=== PATIENT | male | born 1950 | race African-American/Black ===

== ENCOUNTER 2017-03-24 09:58 | Inpatient (IN) | payer OTHER ==
[2017-03-24] MEDS ORDERED: ONDANSETRON 4 MG/2 ML VIAL IVPUSH ONE (10:28)
[2017-03-24] MEDS ORDERED: SODIUM CHLORIDE 1,000 ML IV STA ×2 (10:28→15:34)
--- NOTE | 2017-03-24 10:32 | PDOC ---
History of Present Illness - General History Source: Patient, Spouse - History of Present Illness Timing/Duration: reports: getting worse Quality: reports: severe Abdominal Pain Onset Location: reports: other (upper abd) Pain Radiation: reports: no radiation <Tamara Wood Last Filed: 03/24/17 16:03> <Yeimy Kaplan - Last Filed: 03/28/17 14:35> - General Chief Complaint: Nausea/Vomiting Stated Complaint: SENT BY PCP:DIZZINESS,VOMITING Time Seen by Provider: 03/24/17 10:21 Past History - Past Medical History Diabetes: Yes HTN: Yes Hypercholesterolemia: Yes - Psycho/Social/Smoking Cessation Hx Suicidal Ideation: No Smoking Status: Yes Smoking History: Never smoked Number of Cigarettes Smoked Daily: 0 Information on smoking cessation initiated: No Hx Alcohol Use: No Drug/Substance Use Hx: No Substance Use Type: None <Tamara Wood Last Filed: 03/24/17 16:03> <Yeimy Kaplan - Last Filed: 03/28/17 14:35> - Past Medical History Allergies/Adverse Reactions: Allergies Allergy/AdvReac Type Severity Reaction Status Date / Time No Known Allergies Allergy Verified 03/24/17 10:05 Home Medications: Ambulatory Orders Carvedilol 6.25 mg PO BID 12/20/12 Amlodipine Besylate 10 mg PO DAILY 03/24/17 Aspirin [ASA -] 81 mg PO DAILY 03/24/17 Dorzolamide HCl/Timolol Maleat [Cosopt Eye Drops] 10 ml OP DAILY 03/24/17 Enalapril Maleate [Vasotec -] 10 mg PO BID 03/24/17 Insulin NPH Hum/Reg Insulin Hm [Humulin 70-30 Vial] 20 unit SQ BID 03/24/17 Metformin HCl 500 mg PO BID 03/24/17 Docusate Sodium [Colace -] 300 mg PO HS #30 capsule 03/26/17 Review of Systems - Review of Systems Constitutional: Yes: Malaise, Weakness. No: Chills, Fever Respiratory: No: Cough, Shortness of Breath Cardiac (ROS): No: Chest Pain ABD/GI: Yes: Nausea, Vomiting. No: Diarrhea Neurological: Yes: Dizziness. No: Headache <Tamara Wood Last Filed: 03/24/17 16:03> *Physical Exam - Vital Signs Last Vital Signs Temp Pulse Resp BP Pulse Ox 97.8 F 71 18 100/58 98 03/24/17 10:02 03/24/17 10:02 03/24/17 10:02 03/24/17 10:02 03/24/17 10:02 - Physical Exam General Appearance: Yes: Appropriately Dressed. No: Apparent Distress HEENT: positive: Normal Voice Neck: positive: Supple Respiratory/Chest: positive: Lungs Clear, Normal Breath Sounds. negative: Respiratory Distress Cardiovascular: positive: Regular Rate, S1, S2 Gastrointestinal/Abdominal: positive: Soft. negative: Tender Musculoskeletal: negative: CVA Tenderness Integumentary: positive: Dry, Warm Neurologic: positive: Fully Oriented, Alert, Normal Mood/Affect <Tamara Wood - Last Filed: 03/24/17 16:03> - Vital Signs Last Vital Signs Temp Pulse Resp BP Pulse Ox 98.2 F 70 16 115/78 97 03/26/17 15:08 03/26/17 15:08 03/26/17 15:08 03/26/17 15:08 03/26/17 09:00 <Yeimy Kaplan - Last Filed: 03/28/17 14:35> ED Treatment Course - LABORATORY CBC & Chemistry Diagram: 03/24/17 11:00 03/24/17 11:00 <Tamara Wood - Last Filed: 03/24/17 16:03> - LABORATORY CBC & Chemistry Diagram: 03/26/17 06:00 03/26/17 06:00 - ADDITIONAL ORDERS Additional order review: 03/24/17 03/24/17 13:44 11:00 RBC 4.98 MCV 88.7 MCHC 33.3 RDW 14.7 MPV 6.9 L Neutrophils % 57.2 Lymphocytes % 33.7 Monocytes % 6.7 Eosinophils % 1.6 Basophils % 0.8 POC Glucometer [id number] - Medications Given in the ED: ED Medications Discontinued Medications Generic Name Dose Route Start Last Admin Trade Name Freq PRN Reason Stop Dose Admin Amlodipine Besylate 10 mg 03/24/17 19:00 03/26/17 09:30 Norvasc - PO 10 mg DAILY SAWYER Administration Aspirin 81 mg 03/25/17 10:00 03/26/17 09:30 Asa - PO 81 mg DAILY SAWYER Administration Carvedilol 6.25 mg 03/24/17 22:00 03/26/17 09:30 Coreg - PO 6.25 mg BID SAWYER Administration Heparin Sodium (Porcine) 5,000 unit 03/24/17 22:00 03/26/17 13:21 Heparin - SQ 5,000 unit TID SAWYER Administration Sodium Chloride 1,000 mls @ 1,000 mls/hr 03/24/17 10:28 03/24/17 10:05 Normal Saline - IV 03/24/17 11:27 1,000 mls/hr ASDIR STA Administration Sodium Chloride 500 mls @ 1,000 mls/hr 03/24/17 11:45 03/24/17 12:00 Normal Saline - IV 03/24/17 12:14 1,000 mls/hr ASDIR STA Administration Sodium Chloride 1,000 mls @ 1,000 mls/hr 03/24/17 15:34 03/24/17 18:25 Normal Saline - IV 03/24/17 16:33 1,000 mls/hr ASDIR STA Administration Sodium Chloride 1,000 mls @ 100 mls/hr 03/24/17 15:45 03/24/17 18:28 Normal Saline - IV Not Given ASDIR SAWYER Famotidine/Sodium Chloride 50 mls @ 100 mls/hr 03/24/17 22:00 03/26/17 09:30 Pepcid 20 Mg Premixed Ivpb - IVPB 100 mls/hr BID SAWYER Administration Sodium Chloride 1,000 mls @ 100 mls/hr 03/24/17 18:00 03/25/17 09:52 Normal Saline - IV 03/26/17 03:59 100 mls/hr ASDIR SAWYER Administration Potassium Chloride 100 mls @ 100 mls/hr 03/25/17 10:45 03/25/17 14:33 Potassium Chloride 10 Meq Premix Ivpb - IVPB 03/25/17 12:44 100 mls/hr Q60M SAWYER Administration Insulin Aspart 1 vial 03/24/17 16:30 03/26/17 12:01 Novolog Vial Sliding Scale - SQ Not Given ACHS SAWYER Protocol Metformin HCl 500 mg 03/26/17 12:45 03/26/17 13:20 Glucophage - PO 500 mg BIDAC SAWYER Administration Ondansetron HCl 4 mg 03/24/17 10:28 03/24/17 10:00 Zofran Injection IVPUSH 03/24/17 10:29 4 mg ONCE ONE Administration Potassium Chloride 20 meq 03/25/17 22:00 03/26/17 09:30 K-Dur - PO 03/26/17 22:01 20 meq BID SAWYER Administration Potassium Chloride 40 meq 03/26/17 13:15 03/26/17 13:21 K-Dur - PO 03/26/17 13:16 40 meq ONCE ONE Administration <Yeimy Kaplan - Last Filed: 03/28/17 14:35> Medical Decision Making - Medical Decision Making 03/24/17 10:28 66-year-old male history of HTN, HLD, IDDM, here with vomiting. Patient states for the past week he's had nausea and vomiting mostly after po intake. At some point developed vague upper abdominal pain. Reports feeling dizzy and profoundly weak for the past 4 days. No diarrhea, fever or chills. No recent travel or sick contacts. Denies history of similar episode. No CP/SOB. Was seen by his PMD this a.m., Dr. Jose Diaz, and found to be hypotensive to 90s over 60s and referred to ED See exam N/V w/ weakness R/o metabolic vs infectious vs viral, less likely cardiac -zofran -IVF -labs -reassess 03/24/17 11:46 Mild transaminitis (unclear source-no new meds, etoh use, hepatitis) w/ ARF w/ Cr of 1.5. Will get US, IVF in progress. Anticipate admission 03/24/17 14:09 US w/ fatty liver w/ contacted GB w/ ?sludge and gallstones but no clear e/o acute sonya. Of note, pt has no RUQ pain but was c/o upper abd pain at home. Will consider CT. Pt admitted to hospitalist 03/24/17 14:10 03/24/17 14:13 03/24/17 14:36 <Tamara Wood - Last Filed: 03/24/17 16:03> *DC/Admit/Observation/Transfer - Discharge Dispostion Admit: Yes <Tamara Wood - Last Filed: 07/21/17 16:03> - Attestations Physician Attestion: I reviewed the case with the mid-level practitioner and agree with the mid- level practitioner's assessment, diagnosis and disposition. <Yeimy Kaplan - Last Filed: 03/28/17 14:35> Diagnosis at time of Disposition: Weakness, ISAAC (acute kidney injury), Transaminitis Nausea and vomiting Qualifiers: Vomiting type: unspecified Vomiting Intractability: intractable Qualified Code( s): R11.2 - Nausea with vomiting, unspecified - Discharge Dispostion Disposition: HOME Condition at time of disposition: Stable - Prescriptions - Referrals
[2017-03-24] MEDS ORDERED: ONDANSETRON *ODT* 4 MG TABLET ONE (10:45)
[2017-03-24 11:16] LABS: BASOPHIL 0.8 % (0-2.0); EOSINOPHIL 1.6 % (0-4.5); MCH 29.5 pg (25.7-33.7); MCHC 33.3 g/dl (32.0-35.9); MEAN CELL VOLUME 88.7 fl (80-96); MEAN PLT VOLUME 6.9 fl (7.5-11.1); NEUTROPHILS 57.2 % (42.8-82.8); PLATELET COUNT 244 K/MM3 (134-434); RDW 14.7 % (11.9-15.9); WHITE BLOOD COUNT 7.7 K/mm3 (4.0-10.0)
[2017-03-24 11:29] LABS: ALBUMIN 3.6 g/dl (3.4-5.0); ANION GAP 10 (8-16); BILIRUBIN,TOTAL 1.1 mg/dL (0.2-1.0); CALCIUM 9.2 mg/dL (8.5-10.1); CO2 34 mmol/L (21-32); CREATININE 1.5 mg/dL (0.7-1.3); GLUCOSE,RANDOM 117 mg/dL (74-106); SGPT/ALT 180 U/L (12-78); TOT PROT 7.6 g/dl (6.4-8.2)
[2017-03-24 11:32] LABS: ALK PHOS 131 U/L (45-117); TROPONIN I < 0.02 ng/ml (0.00-0.05)
[2017-03-24 11:34] LABS: SGOT/AST 121 U/L (15-37)
[2017-03-24] MEDS ORDERED: SODIUM CHLORIDE 500 ML IV STA (11:45)
[2017-03-24 12:21] LABS: URINE APPEARANCE CLEAR; URINE BILIRUBIN NEGATIVE (NEGATIVE); URINE BLOOD NEGATIVE (NEGATIVE); URINE COLOR AMBER; URINE GLUCOSE (UA) NEGATIVE (NEGATIVE); URINE KETONE NEGATIVE (NEGATIVE); URINE NITRITE NEGATIVE (NEGATIVE)
[2017-03-24 12:22] LABS: URINE LEUK ESTERASE 1+ (NEGATIVE); URINE PROTEIN 1+ (NEGATIVE)
[2017-03-24 12:24] LABS: URINE HYALINE CAST 44 /lpf; URINE MUCUS RARE; URINE RBC 2 /hpf (0-3); URINE WBC 9 /hpf (3-5)
--- NOTE | 2017-03-24 15:27 | HP ---
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 - Smoking History Smoking history: Former smoker Have you smoked in the past 12 months: No Aproximately how many cigarettes per day: 0 - Alcohol/Substance Use Hx Alcohol Use: No Home Medications - Allergies Allergies/Adverse Reactions: Allergies Allergy/AdvReac Type Severity Reaction Status Date / Time No Known Allergies Allergy Verified 03/24/17 10:05 - Home Medications Home Medications: Ambulatory Orders Carvedilol 6.25 mg PO BID 12/20/12 Amlodipine Besylate 10 mg PO DAILY 03/24/17 Aspirin [ASA -] 81 mg PO DAILY 03/24/17 Dorzolamide HCl/Timolol Maleat [Cosopt Eye Drops] 10 ml OP DAILY 03/24/17 Enalapril Maleate [Vasotec -] 10 mg PO BID 03/24/17 Insulin NPH Hum/Reg Insulin Hm [Humulin 70-30 Vial] 20 unit SQ BID 03/24/17 Metformin HCl 500 mg PO BID 03/24/17 Pravastatin Sodium 20 mg PO DAILY 03/24/17 Rosiglitazone Maleate [Avandia] 2 mg PO BID 03/24/17 Vardenafil HCl [Levitra] 20 mg PO HS 03/24/17 Family Disease History - Family Disease History Family History: Unable to Obtain Review of Systems - Review of Systems Constitutional: reports: Malaise, Weakness. denies: Loss of Appetite Eyes: reports: No Symptoms HENT: reports: No Symptoms Neck: reports: No Symptoms Cardiovascular: reports: No Symptoms Respiratory: reports: No Symptoms Gastrointestinal: reports: Abdominal Pain (mild occasional), Nausea, Vomiting. denies: Vomiting Blood Genitourinary: reports: No Symptoms Breasts: reports: No Symptoms Reported Musculoskeletal: reports: No Symptoms Integumentary: reports: No Symptoms Neurological: reports: No Symptoms Endocrine: reports: No Symptoms Hematology/Lymphatic: reports: No Symptoms Physical Examination Vital Signs: Vital Signs Temperature 97.8 F 03/24/17 10:02 Pulse Rate 71 03/24/17 10:02 Respiratory Rate 18 03/24/17 10:02 Blood Pressure 100/58 03/24/17 10:02 O2 Sat by Pulse Oximetry (%) 98 03/24/17 10:02 Constitutional: Yes: Well Nourished, No Distress, Calm Eyes: Yes: Conjunctiva Clear, EOM Intact HENT: Yes: Atraumatic, Normocephalic, Other (dry mucous membranes) Neck: Yes: Supple, Trachea Midline Cardiovascular: Yes: Regular Rate and Rhythm, S1, S2. No: JVD, Gallop, Murmur, Rub Respiratory: Yes: Regular, CTA Bilaterally Gastrointestinal: Yes: Normal Bowel Sounds, Soft, Abdomen, Obese. No: Tenderness Extremities: Yes: WNL Edema: No Integumentary: Yes: WNL Neurological: Yes: WNL, Alert, Oriented ...Motor Strength: WNL Imaging - Results Ultrasound: Report Reviewed, Image Reviewed Assessment/Plan 66M with multiple medical problems presents with hypotension and volume depletion secondary to vomiting. Problem List: Nausea/vomiting IASAC complicated UTI transaminitis/elevated LFTs/Shock liver hyperbilirubinemia hypernatremia hyponatremic hypovolemia volume depletion HTN DM HLD hypotension bradycardia Plan: Admit to inpatient give IVF Kelfex 500mg po BID for 7-10 days for complicated UTI trend Cr-shoild resolve with IVF trend LFTs should resolve with IVF Hold antihypertensives for now hold DAVIE inhibitor due to ISAAC ISS ACHS BGM ACHS Trend electrolytes case discussed with Attending Dr. Aguillon and medical team. Full H&P to follow Visit type - Emergency Visit Emergency Visit: Yes ED Registration Date: 03/24/17 Care time: The patient presented to the Emergency Department on the above date and was hospitalized for further evaluation of their emergent condition. - New Patient This patient is new to me today: Yes Date on this admission: 03/24/17 - Critical Care Critical Care patient: No
[2017-03-24] MEDS ORDERED: ONDANSETRON 4 MG/2 ML VIAL IVPB PRN (15:34)
[2017-03-24] MEDS ORDERED: SODIUM CHLORIDE 1,000 ML IV SCH (15:45)
--- NOTE | 2017-03-24 17:38 | HP ---
CHIEF COMPLAINT: "I was nauseous" PCP: Dr. Jose Diaz HISTORY OF PRESENT ILLNESS: Patient is a 66yo M with a PMHx of HTN, DM2, HLD who presented with 2-3 weeks of progressively worsening nausea/vomiting. No hematemesis, no bilious emesis, no projectile vomiting. The patient had no abdominal tenderness during or in between these episodes. There is no relation to type of food, food quality, spiciness, fatty foods, time of day. No fevers, no chills, no diarrhea, no sick contacts. No CP, no SOB. He does attest to using new supplements within the past couple of weeks (supplements for bowel cleansing and supplements to workout ). He attests to weakness, GAY, headache, dizziness since he has had these episodes. He does attest to heartburn, without relation to vomiting. He went to his PCP and was found to have a SBP in the 90s. In the ER, he had one episode of nonbilious, nonbloody emesis. His BP was 100/58 , HR 71. He was given 2 fluid boluses, Zofran, and an EKG which showed sinus bradycardia without ST changes or T wave abnormalities. Recent Travel: Denies PAST MEDICAL HISTORY: HTN, DM2, HLD PAST SURGICAL HISTORY: L eye glaucoma surgery Social History: Smoking: Past hx of smoking, unknown quantity, current nonsmoker Alcohol: Past hx of alcohol use, beer/wine, no liquor Drugs: Denies Family History: Non contributory family hx, no fhx of CRC Allergies: No Known Allergies Allergy (Verified 03/24/17 10:05) No known Food allergies HOME MEDICATIONS: Home Medications Medication Instructions Recorded Carvedilol 6.25 mg PO BID 12/20/12 Amlodipine Besylate 10 mg PO DAILY 03/24/17 Aspirin [ASA -] 81 mg PO DAILY 03/24/17 Dorzolamide HCl/Timolol Maleat 10 ml OP DAILY 03/24/17 [Cosopt Eye Drops] Enalapril Maleate [Vasotec -] 10 mg PO BID 03/24/17 Insulin NPH Hum/Reg Insulin Hm 20 unit SQ BID 03/24/17 [Humulin 70-30 Vial] Metformin HCl 500 mg PO BID 03/24/17 Pravastatin Sodium 20 mg PO DAILY 03/24/17 Rosiglitazone Maleate [Avandia] 2 mg PO BID 03/24/17 Vardenafil HCl [Levitra] 20 mg PO HS 03/24/17 REVIEW OF SYSTEMS CONSTITUTIONAL: Absent: fever, chills, diaphoresis, malaise, weight change Present: generalized weakness, loss of appetite, lightheadedness HEENT: Absent: rhinorrhea, nasal congestion, throat pain, throat swelling, difficulty swallowing, mouth swelling, ear pain, eye pain, visual changes CARDIOVASCULAR: Absent: chest pain, syncope, palpitations, irregular heart rate, peripheral edema RESPIRATORY: Absent: cough, shortness of breath, dyspnea with exertion, orthopnea, wheezing, stridor, hemoptysis GASTROINTESTINAL: Absent: abdominal pain, abdominal distension, diarrhea, constipation, melena, hematochezia Present: nausea, vomitting, heartburn GENITOURINARY: Absent: dysuria, frequency, urgency, hesitancy, hematuria, flank pain, genital pain MUSCULOSKELETAL: Absent: myalgia, arthralgia, joint swelling, back pain, neck pain SKIN: Absent: rash, itching, pallor HEMATOLOGIC/IMMUNOLOGIC: Absent: easy bleeding, easy bruising, lymphadenopathy, frequent infections ENDOCRINE: Absent: unexplained weight gain, unexplained weight loss, heat intolerance, cold intolerance NEUROLOGIC: Absent: headache, focal weakness or paresthesias, dizziness, unsteady gait, seizure, mental status changes, bladder or bowel incontinence PSYCHIATRIC: Absent: anxiety, depression, suicidal or homicidal ideation, hallucinations. PHYSICAL EXAMINATION Vital Signs - 24 hr 03/24/17 16:01 Temperature 98.2 F Pulse Rate [ 60 Right Radial] Respiratory 18 Rate Blood Pressure 143/60 [Left Arm] O2 Sat by Pulse 96 Oximetry (%) GENERAL: Awake, alert, and fully oriented, in no acute distress. HEENT: L eye - PERRLA; R eye - post-surgical changes. EOMi. No pharyngeal erythema, no exudate, no tonsilar adenopathy, no neck LAD LUNGS: CTABL, no wheezes, no crackles, no accessory muscle use ABD: Soft, nontender, non-distended, normoactive bowel sounds, no guarding, no rebound, no masses, negative elmore's sign MSK: Normal range of motion at all joints. No bony deformities or tenderness. No CVA tenderness. 2+ pulses, warm, no peripheral edema NEURO: Cranial nerves II-XII intact. Sensation was equal and intact in face and body bilaterally. Muscle strength is 5/5 in all extremities. Reflexes 2+. Normal speech. Alert and oriented x3 DFE: No vibratory sensation in feet, no ulcers, minimal proprioception. Laboratory Results - last 24 hr 03/24/17 03/24/17 03/24/17 11:00 11:00 11:00 WBC 7.7 RBC 4.98 Hgb 14.7 Hct 44.2 MCV 88.7 MCH 29.5 MCHC 33.3 RDW 14.7 Plt Count 244 MPV 6.9 L Neutrophils % 57.2 Lymphocytes % 33.7 Monocytes % 6.7 Eosinophils % 1.6 Basophils % 0.8 Sodium 131 L Potassium 4.3 Chloride 87 L Carbon Dioxide 34 H Anion Gap 10 BUN 17 D Creatinine 1.5 H D Creat Clearance w eGFR 46.82 POC Glucometer Random Glucose 117 H Calcium 9.2 Total Bilirubin 1.1 H AST 121 H ALT 180 H Alkaline Phosphatase 131 H Creatine Kinase 494 H Creatine Kinase Index 0.2 CK-MB (CK-2) 1.200 CK-MB (CK-2) Rel Index Troponin I < 0.02 B-Natriuretic Peptide 37.30 Total Protein 7.6 Albumin 3.6 Lipase 69 L Cancelled Urine Color Urine Appearance Urine pH Ur Specific Row[place] Urine Protein Urine Glucose (UA) Urine Ketones Urine Blood Urine Nitrite Urine Bilirubin Urine Urobilinogen Ur Leukocyte Esterase Urine RBC Urine WBC Ur Epithelial Cells Hyaline Casts Urine Mucus 03/24/17 03/24/17 03/24/17 11:00 12:00 13:44 WBC RBC Hgb Hct MCV MCH MCHC RDW Plt Count MPV Neutrophils % Lymphocytes % Monocytes % Eosinophils % Basophils % Sodium Potassium Chloride Carbon Dioxide Anion Gap BUN Creatinine Creat Clearance w eGFR POC Glucometer [id number] Random Glucose Calcium Total Bilirubin AST ALT Alkaline Phosphatase Creatine Kinase Creatine Kinase Index CK-MB (CK-2) CK-MB (CK-2) Rel Index Cancelled Troponin I B-Natriuretic Peptide Total Protein Albumin Lipase Urine Color Mariia Urine Appearance Clear Urine pH 8.0 D Ur Specific [place] 1.015 Urine Protein 1+ H Urine Glucose (UA) Negative Urine Ketones Negative Urine Blood Negative Urine Nitrite Negative Urine Bilirubin Negative Urine Urobilinogen 2.0 Ur Leukocyte Esterase 1+ H Urine RBC 2 Urine WBC 9 Ur Epithelial Cells Rare Hyaline Casts 44 Urine Mucus Rare 03/24/17 13:48 WBC RBC Hgb Hct MCV MCH MCHC RDW Plt Count MPV Neutrophils % Lymphocytes % Monocytes % Eosinophils % Basophils % Sodium Potassium Chloride Carbon Dioxide Anion Gap BUN Creatinine Creat Clearance w eGFR POC Glucometer Random Glucose Calcium Total Bilirubin AST ALT Alkaline Phosphatase Creatine Kinase Creatine Kinase Index CK-MB (CK-2) CK-MB (CK-2) Rel Index Troponin I B-Natriuretic Peptide Cancelled Total Protein Albumin Lipase Urine Color Urine Appearance Urine pH Ur Specific [place] Urine Protein Urine Glucose (UA) Urine Ketones Urine Blood Urine Nitrite Urine Bilirubin Urine Urobilinogen Ur Leukocyte Esterase Urine RBC Urine WBC Ur Epithelial Cells Hyaline Casts Urine Mucus IMAGING RUQ U/S - Fatty Liver, contracted GB, questionable sludge, possible gallstones. ASSESSMENT/PLAN: Pt is a 66yo M with a PMHx of HTN, DM2, HLD who recently started taking new supplements and presented with 2-3 weeks of progressively worsening nausea and vomiting. # Nausea/Vomiting - Likely due to new supplements vs medication side-effects, less likely viral infection, less likely cardiac (neg trop/EKG) - Will ask patient to bring in his new supplements, educate pt # Acute Kidney Injury (baseline 0.7) - Cr on admission is 1.5, likely due to hypoperfusion vs meds/supplement side effects - Start gently hydration IVF 100cc/hr, continue to monitor - Held home lisinopril 10mg # Transaminitis - Likely due to shock liver, could be due to Statin sfx vs Alcoholic Liver Disease vs Fatty Liver Disease - Continue to monitor with CMP - Held home Pravastatin 20mg - If IVF causes transaminitis to improve, likely shock liver # Hyponatremia - Likely hypovolemic hyponatremia, will likely resolve with fluids # Hypochloremia - Likely from vomiting and GI chloride loss, will likely resolve with fluids # Elevated Creatine Kinase - CK is 494, possible due to supplements vs statin sfx - No myalgia # Asymptomatic Pyuria - UA shows 1+ protein, 1+ leuk esterase, 9 WBCs without symptoms - Will repeat UA - Will obtain Ucx and f/u # Hx of DM2 - At home, patient takes Metformin 500mg BID + Rosiglitazone 2mg + Insulin NPH 20u BID - Will start patient on SSI + BGMs, monitor glucose # Hx of HTN - Held home lisinopril 10mg because of ISAAC - Amlodipine 10mg was on hold, can restart now since hypotension has resolved - Carvedilol 6.25mg BID was on hold, can restart now with BP and HR parameters # Hx of HLD - Held home Pravastatin 20mg due to transaminitis # FEN - Fluids: NS IV 100cc/hr 2 bags - Electrolytes: Monitor CMP - Nutrition: Diabetic clear diet # Prophylaxis - DVT: Heparin SQ + SCDs - GI: Pepcid (Famotidine 20mg IVPB BID) # Disposition - Admit to med/surg Visit type - Emergency Visit Emergency Visit: Yes ED Registration Date: 03/24/17 Care time: The patient presented to the Emergency Department on the above date and was hospitalized for further evaluation of their emergent condition. - New Patient This patient is new to me today: Yes Date on this admission: 03/24/17 - Critical Care Critical Care patient: No
--- NOTE | 2017-03-24 19:48 | PN ---
Teaching Attending Note Name of Resident: Ernie Coburn ATTENDING PHYSICIAN STATEMENT I saw and evaluated the patient. I reviewed the resident's note and discussed the case with the resident. I agree with the resident's findings and plan as documented. SUBJECTIVE: Patient is a 66yo M with a PMHx of HTN, DM2, HLD who presented with 2-3 weeks of progressively worsening nausea/vomiting. Patient uses (supplements for bowel cleansing and supplements to workout). OBJECTIVE: Vital Signs Temperature 98.1 F 03/24/17 19:05 Pulse Rate 53 L 03/24/17 19:05 Respiratory Rate 20 03/24/17 19:05 Blood Pressure 142/71 03/24/17 19:05 O2 Sat by Pulse Oximetry (%) 96 03/24/17 16:01 CBCD WBC 7.7 K/mm3 (4.0-10.0) 03/24/17 11:00 RBC 4.98 M/mm3 (4.00-5.60) 03/24/17 11:00 Hgb 14.7 GM/dL (11.7-16.9) 03/24/17 11:00 Hct 44.2 % (35.4-49) 03/24/17 11:00 MCV 88.7 fl (80-96) 03/24/17 11:00 MCHC 33.3 g/dl (32.0-35.9) 03/24/17 11:00 RDW 14.7 % (11.9-15.9) 03/24/17 11:00 Plt Count 244 K/MM3 (134-434) 03/24/17 11:00 MPV 6.9 fl (7.5-11.1) L 03/24/17 11:00 CMP Sodium 131 mmol/L (136-145) L 03/24/17 11:00 Potassium 4.3 mmol/L (3.5-5.1) 03/24/17 11:00 Chloride 87 mmol/L (98-107) L 03/24/17 11:00 Carbon Dioxide 34 mmol/L (21-32) H 03/24/17 11:00 Anion Gap 10 (8-16) 03/24/17 11:00 BUN 17 mg/dL (7-18) D 03/24/17 11:00 Creatinine 1.5 mg/dL (0.7-1.3) H D 03/24/17 11:00 Creat Clearance w eGFR 46.82 (>60) 03/24/17 11:00 Random Glucose 117 mg/dL (74-106) H 03/24/17 11:00 Calcium 9.2 mg/dL (8.5-10.1) 03/24/17 11:00 Total Bilirubin 1.1 mg/dL (0.2-1.0) H 03/24/17 11:00 AST 121 U/L (15-37) H 03/24/17 11:00 ALT 180 U/L (12-78) H 03/24/17 11:00 Alkaline Phosphatase 131 U/L (45-117) H 03/24/17 11:00 Total Protein 7.6 g/dl (6.4-8.2) 03/24/17 11:00 Albumin 3.6 g/dl (3.4-5.0) 03/24/17 11:00 CARDIAC ENZYMES Creatine Kinase 494 IU/L (39-308) H 03/24/17 11:00 Troponin I < 0.02 ng/ml (0.00-0.05) 03/24/17 11:00 Current Medications Generic Name Dose Route Start Last Admin Trade Name Freq PRN Reason Stop Dose Admin Amlodipine Besylate 10 mg 03/24/17 19:00 Norvasc - PO DAILY [facility] Aspirin 81 mg 03/25/17 10:00 Asa - PO DAILY [facility] Carvedilol 6.25 mg 03/24/17 22:00 Coreg - PO BID [facility] Heparin Sodium (Porcine) 5,000 unit 03/24/17 22:00 Heparin - SQ TID [facility] Famotidine/Sodium Chloride 50 mls @ 100 mls/hr 03/24/17 22:00 Pepcid 20 Mg Premixed Ivpb - IVPB BID [facility] Sodium Chloride 1,000 mls @ 100 mls/hr 03/24/17 18:00 Normal Saline - IV 03/26/17 03:59 ASDIR [facility] Insulin Aspart 1 vial 03/24/17 16:30 Novolog Vial Sliding Scale - SQ ACHS [facility] Protocol Ondansetron HCl 4 mg 03/24/17 15:34 Zofran Injection IVPB Q6H PRN NAUSEA Home Medications Medication Instructions Recorded Carvedilol 6.25 mg PO BID 12/20/12 Amlodipine Besylate 10 mg PO DAILY 03/24/17 Aspirin [ASA -] 81 mg PO DAILY 03/24/17 Dorzolamide HCl/Timolol Maleat 10 ml OP DAILY 03/24/17 [Cosopt Eye Drops] Enalapril Maleate [Vasotec -] 10 mg PO BID 03/24/17 Insulin NPH Hum/Reg Insulin Hm 20 unit SQ BID 03/24/17 [Humulin 70-30 Vial] Metformin HCl 500 mg PO BID 03/24/17 Pravastatin Sodium 20 mg PO DAILY 03/24/17 Rosiglitazone Maleate [Avandia] 2 mg PO BID 03/24/17 Vardenafil HCl [Levitra] 20 mg PO HS 03/24/17 PE: per resident's note ASSESSMENT AND PLAN: Pt is a 66yo M with a PMHx of HTN, DM2, HLD who recently started taking new supplements and presented with 2-3 weeks of progressively worsening nausea and vomiting. # Acute Nausea/Vomiting on IVF will continue , On zofran PRN # Acute Kidney Injury (baseline 0.7); Cr on admission is 1.5, most likely due taking supplements such as protein supplements post exercise. Hold home lisinopril now. # Elevated Creatine Kinase; CK is 494, possible due to supplements vs statin , will continue IVF and repeat the level in am. # Acute Transaminitis possible due to statins vs Fatty Liver Disease vs Alcoholic Liver Disease; will hold Rosiglitazone as well since can cause transaminitis. # Acute Hyponatremia will start IVF 0.9NS # Hypochloremia Likely from vomiting and GI chloride loss, will likely resolve with fluids # Asymptomatic Pyuria will repeat the level in am, will send for culture # T2DM on Metformin at home, will hold the meds for now. Will start the patient on SSI with overage # Hx of HTN on home lisinopril 10mg will hold it for now due to ARF; Continue Amlodipine 10mg and Coreg 6.25mg BID # Hx of HLD hold Pravastatin for now DVT Px: Heparin SQ + SCDs GI Px: Pepcid (Famotidine 20mg IVPB BID)
[2017-03-24 21:09] VITALS: BMI 32.1
[2017-03-24] MEDS: SODIUM CHLORIDE 1,000 ML IV SCH (21:22)
[2017-03-24] MEDS: FAMOTIDINE 20 MG/50 ML IVPB 50 ML IVPB SCH (21:39)
[2017-03-24] MEDS: HEPARIN NA (PORCINE) 5,000 UNITS/ML 1ML VIAL SQ SCH (21:39)
[2017-03-24] MEDS: INSULIN SLIDING SCALE (NOVOLOG) 1 VIAL SQ SCH (21:48)
[2017-03-24] MEDS: CARVEDILOL 6.25 MG TABLET (FP) PO SCH (21:50)
[2017-03-24] MEDS: amLODIPine BESYLATE 10 MG TABLET (FP) PO SCH (21:50)
[2017-03-24] MEDS ORDERED: CEPHALEXIN MONOHYDRATE 500 MG CAPSULE (UD) PO SCH (22:00)
[2017-03-25] MEDS: HEPARIN NA (PORCINE) 5,000 UNITS/ML 1ML VIAL SQ SCH ×3 (06:18→21:07)
[2017-03-25] MEDS: INSULIN SLIDING SCALE (NOVOLOG) 1 VIAL SQ SCH ×5 (06:18→21:21)
[2017-03-25 08:01] LABS: MCH 29.3 pg (25.7-33.7); MCHC 33.1 g/dl (32.0-35.9); MEAN CELL VOLUME 88.8 fl (80-96); PLATELET COUNT 223 K/MM3 (134-434); RDW 14.6 % (11.9-15.9); WHITE BLOOD COUNT 5.7 K/mm3 (4.0-10.0)
[2017-03-25 08:26] LABS: ALBUMIN 3.2 g/dl (3.4-5.0); ANION GAP 8 (8-16); CALCIUM 8.3 mg/dL (8.5-10.1); CO2 33 mmol/L (21-32); CREATININE 0.9 mg/dL (0.7-1.3); GLUCOSE,RANDOM 105 mg/dL (74-106); PHOSPHOROUS 3.2 mg/dL (2.5-4.9); SGOT/AST 65 U/L (15-37); SGPT/ALT 133 U/L (12-78)
[2017-03-25 08:27] LABS: ALK PHOS 112 U/L (45-117); BILIRUBIN,TOTAL 1.1 mg/dL (0.2-1.0); TOT PROT 6.1 g/dl (6.4-8.2)
[2017-03-25] MEDS: CARVEDILOL 6.25 MG TABLET (FP) PO SCH ×2 (09:07→21:06)
[2017-03-25] MEDS: amLODIPine BESYLATE 10 MG TABLET (FP) PO SCH (09:07)
[2017-03-25] MEDS: ASPIRIN 81 MG CHEWABLE TABLETS PO SCH (09:07)
[2017-03-25] MEDS: FAMOTIDINE 20 MG/50 ML IVPB 50 ML IVPB SCH ×2 (09:07→21:11)
[2017-03-25] MEDS: SODIUM CHLORIDE 1,000 ML IV SCH (09:52)
--- NOTE | 2017-03-25 10:32 | PN ---
Progress Note (short form) - Note Progress Note: Patient is feeling better with no acute distress. Vital Signs Temperature 97.7 F 03/25/17 06:00 Pulse Rate 51 L 03/25/17 06:00 Respiratory Rate 20 03/25/17 06:00 Blood Pressure 127/61 03/25/17 06:00 O2 Sat by Pulse Oximetry (%) 96 03/24/17 19:00 GENERAL: Awake, alert, and fully oriented, in no acute distress. HEENT: L eye - PERRLA; R eye - post-surgical changes. EOMi. No pharyngeal erythema, no exudate, no tonsilar adenopathy, no neck LAD LUNGS: CTABL, no wheezes, no crackles, no accessory muscle use ABD: Soft, nontender, non-distended, normoactive bowel sounds, no guarding, no rebound, no masses, negative elmore's sign MSK: Normal range of motion at all joints. No bony deformities or tenderness. No CVA tenderness. 2+ pulses, warm, no peripheral edema NEURO: Cranial nerves II-XII intact. Sensation was equal and intact in face and body bilaterally. Muscle strength is 5/5 in all extremities. Reflexes 2+. Normal speech. Alert and oriented x3 DFE: No vibratory sensation in feet, no ulcers, minimal proprioception. CBCD WBC 5.7 K/mm3 (4.0-10.0) 03/25/17 06:00 RBC 4.50 M/mm3 (4.00-5.60) 03/25/17 06:00 Hgb 13.2 GM/dL (11.7-16.9) D 03/25/17 06:00 Hct 39.9 % (35.4-49) 03/25/17 06:00 MCV 88.8 fl (80-96) 03/25/17 06:00 MCHC 33.1 g/dl (32.0-35.9) 03/25/17 06:00 RDW 14.6 % (11.9-15.9) 03/25/17 06:00 Plt Count 223 K/MM3 (134-434) 03/25/17 06:00 MPV 7.0 fl (7.5-11.1) L 03/25/17 06:00 CMP Sodium 139 mmol/L (136-145) 03/25/17 06:00 Potassium 2.9 mmol/L (3.5-5.1) L* D 03/25/17 06:00 Chloride 98 mmol/L (98-107) D 03/25/17 06:00 Carbon Dioxide 33 mmol/L (21-32) H 03/25/17 06:00 Anion Gap 8 (8-16) 03/25/17 06:00 BUN 11 mg/dL (7-18) D 03/25/17 06:00 Creatinine 0.9 mg/dL (0.7-1.3) D 03/25/17 06:00 Creat Clearance w eGFR > 60 (>60) 03/25/17 06:00 Random Glucose 105 mg/dL (74-106) 03/25/17 06:00 Calcium 8.3 mg/dL (8.5-10.1) L 03/25/17 06:00 Total Bilirubin 1.1 mg/dL (0.2-1.0) H 03/25/17 06:00 AST 65 U/L (15-37) H D 03/25/17 06:00 ALT 133 U/L (12-78) H D 03/25/17 06:00 Alkaline Phosphatase 112 U/L (45-117) 03/25/17 06:00 Total Protein 6.1 g/dl (6.4-8.2) L 03/25/17 06:00 Albumin 3.2 g/dl (3.4-5.0) L 03/25/17 06:00 CARDIAC ENZYMES Creatine Kinase 494 IU/L (39-308) H 03/24/17 11:00 Troponin I < 0.02 ng/ml (0.00-0.05) 03/24/17 11:00 Current Medications Generic Name Dose Route Start Last Admin Trade Name Freq PRN Reason Stop Dose Admin Amlodipine Besylate 10 mg 03/24/17 19:00 03/25/17 09:07 Norvasc - PO 10 mg DAILY [facility] Administration Aspirin 81 mg 03/25/17 10:00 03/25/17 09:07 Asa - PO 81 mg DAILY [facility] Administration Carvedilol 6.25 mg 03/24/17 22:00 03/25/17 09:07 Coreg - PO 6.25 mg BID [facility] Administration Heparin Sodium (Porcine) 5,000 unit 03/24/17 22:00 03/25/17 06:18 Heparin - SQ 5,000 unit TID [facility] Administration Famotidine/Sodium Chloride 50 mls @ 100 mls/hr 03/24/17 22:00 03/25/17 09:07 Pepcid 20 Mg Premixed Ivpb - IVPB 100 mls/hr BID [facility] Administration Sodium Chloride 1,000 mls @ 100 mls/hr 03/24/17 18:00 03/25/17 09:52 Normal Saline - IV 03/26/17 03:59 100 mls/hr ASDIR [facility] Administration Insulin Aspart 1 vial 03/24/17 16:30 03/25/17 08:12 Novolog Vial Sliding Scale - SQ Not Given ACHS [facility] Protocol Ondansetron HCl 4 mg 03/24/17 15:34 Zofran Injection IVPB Q6H PRN NAUSEA Home Medications Medication Instructions Recorded Carvedilol 6.25 mg PO BID 12/20/12 Amlodipine Besylate 10 mg PO DAILY 03/24/17 Aspirin [ASA -] 81 mg PO DAILY 03/24/17 Dorzolamide HCl/Timolol Maleat 10 ml OP DAILY 03/24/17 [Cosopt Eye Drops] Enalapril Maleate [Vasotec -] 10 mg PO BID 03/24/17 Insulin NPH Hum/Reg Insulin Hm 20 unit SQ BID 03/24/17 [Humulin 70-30 Vial] Metformin HCl 500 mg PO BID 03/24/17 Pravastatin Sodium 20 mg PO DAILY 03/24/17 Rosiglitazone Maleate [Avandia] 2 mg PO BID 03/24/17 Vardenafil HCl [Levitra] 20 mg PO HS 03/24/17 Urine Test Results Urine Color Ltyellow 03/25/17 11:00 Urine Appearance Clear 03/25/17 11:00 Urine pH 8.0 (5.0-8.0) 03/25/17 11:00 Ur Specific [place] 1.015 (1.005-1.025) 03/24/17 12:00 Urine Protein Negative (NEGATIVE) 03/25/17 11:00 Urine Glucose (UA) Negative (NEGATIVE) 03/25/17 11:00 Urine Ketones Negative (NEGATIVE) 03/25/17 11:00 Urine Blood Negative (NEGATIVE) 03/25/17 11:00 Urine Nitrite Negative (NEGATIVE) 03/25/17 11:00 Urine Bilirubin Negative (NEGATIVE) 03/25/17 11:00 Ur Leukocyte Esterase 1+ (NEGATIVE) H 03/25/17 11:00 Urine RBC <1 /hpf (0-3) 03/25/17 11:00 Urine WBC 5 /hpf (3-5) 03/25/17 11:00 Ur Epithelial Cells Rare /hpf (FEW) 03/25/17 11:00 Urine Bacteria Rare /hpf (NONE SEEN) 03/25/17 11:00 Urine Mucus Rare 03/24/17 12:00 ASSESSMENT AND PLAN: Pt is a 66yo M with a PMHx of HTN, DM2, HLD who recently started taking new supplements and presented with 2-3 weeks of progressively worsening nausea and vomiting. # Acute Hypokalemia being repleted with IV potassium and po potassium # Acute Nausea/Vomiting improving but continues to have some nausea , on IVF will continue , On zofran PRN # Acute Kidney Injury (baseline 0.7); Cr on admission is 1.5-->1.0 now , most likely due taking supplements such as protein supplements post exercise. Hold home lisinopril now. # Elevated Creatine Kinase; CK is 494, possible due to supplements vs statin , will continue IVF and repeat the level in am. # Acute Transaminitis possible due to statins vs Fatty Liver Disease vs Alcoholic Liver Disease; will hold Rosiglitazone as well since can cause transaminitis. will continue IVF # Acute Hyponatremia improved from 131--139 now on IVF .9NS # Hypochloremia Likely from vomiting and GI chloride loss, improving # Asymptomatic Pyuria will repeat the level in am, will send for culture, UA is improving , patient is asymptomatic # T2DM on Metformin at home, will hold the meds for now. Will start the patient on SSI with overage # Hx of HTN on home lisinopril 10mg will hold it for now due to ARF: Continue Amlodipine 10mg and Coreg 6.25mg BID # Hx of HLD hold Pravastatin for now DVT Px: Heparin SQ + SCDs GI Px: Pepcid (Famotidine 20mg IVPB BID) Visit type - Emergency Visit Emergency Visit: Yes ED Registration Date: 03/24/17 Care time: The patient presented to the Emergency Department on the above date and was hospitalized for further evaluation of their emergent condition. - New Patient This patient is new to me today: No - Critical Care Critical Care patient: No
[2017-03-25] MEDS: KCL 10 MEQ IVPB 100 ML IVPB SCH ×2 (10:51→14:33)
[2017-03-25 13:28] LABS: URINE APPEARANCE CLEAR; URINE BILIRUBIN NEGATIVE (NEGATIVE); URINE BLOOD NEGATIVE (NEGATIVE); URINE COLOR LTYELLOW; URINE GLUCOSE (UA) NEGATIVE (NEGATIVE); URINE KETONE NEGATIVE (NEGATIVE); URINE NITRITE NEGATIVE (NEGATIVE); URINE PROTEIN NEGATIVE (NEGATIVE); URINE UROBILINOGEN NEGATIVE mg/dL (0.2-1.0)
[2017-03-25 13:37] LABS: URINE LEUK ESTERASE 1+ (NEGATIVE)
[2017-03-25 13:39] LABS: URINE BACTERIA RARE /hpf (NONE SEEN); URINE RBC <1 /hpf (0-3); URINE WBC 5 /hpf (3-5)
[2017-03-25] MEDS: POTASSIUM CHLORIDE TABS 20 MEQ TABLET.ER (FP) PO SCH (21:06)
[2017-03-26] MEDS: HEPARIN NA (PORCINE) 5,000 UNITS/ML 1ML VIAL SQ SCH ×2 (05:42→13:21)
[2017-03-26] MEDS: INSULIN SLIDING SCALE (NOVOLOG) 1 VIAL SQ SCH ×2 (06:02→12:01)
[2017-03-26 08:00] LABS: MCH 29.7 pg (25.7-33.7); MCHC 33.3 g/dl (32.0-35.9); MEAN CELL VOLUME 89.1 fl (80-96); NEUTROPHILS 53.5 % (42.8-82.8); PLATELET COUNT 213 K/MM3 (134-434); RDW 14.8 % (11.9-15.9); WHITE BLOOD COUNT 5.6 K/mm3 (4.0-10.0)
[2017-03-26 09:02] LABS: ALBUMIN 3.2 g/dl (3.4-5.0); ALK PHOS 111 U/L (45-117); ANION GAP 7 (8-16); BILIRUBIN,TOTAL 1.1 mg/dL (0.2-1.0); CALCIUM 8.5 mg/dL (8.5-10.1); CO2 32 mmol/L (21-32); CREATININE 0.8 mg/dL (0.7-1.3); GLUCOSE,RANDOM 98 mg/dL (74-106); MAGNESIUM 2.2 mg/dL (1.8-2.4); PHOSPHOROUS 2.8 mg/dL (2.5-4.9); SGOT/AST 67 U/L (15-37); SGPT/ALT 123 U/L (12-78); TOT PROT 6.1 g/dl (6.4-8.2)
[2017-03-26] MEDS: POTASSIUM CHLORIDE TABS 20 MEQ TABLET.ER (FP) PO SCH (09:30)
[2017-03-26] MEDS: CARVEDILOL 6.25 MG TABLET (FP) PO SCH (09:30)
[2017-03-26] MEDS: ASPIRIN 81 MG CHEWABLE TABLETS PO SCH (09:30)
[2017-03-26] MEDS: amLODIPine BESYLATE 10 MG TABLET (FP) PO SCH (09:30)
[2017-03-26] MEDS: FAMOTIDINE 20 MG/50 ML IVPB 50 ML IVPB SCH (09:30)
--- NOTE | 2017-03-26 09:45 | PN ---
Teaching Attending Note Name of Resident: Ernie Coburn ATTENDING PHYSICIAN STATEMENT I saw and evaluated the patient. I reviewed the resident's note and discussed the case with the resident. I agree with the resident's findings and plan as documented. SUBJECTIVE: Patient is doing well with no acute distress. No nausea or vomiting. OBJECTIVE: Vital Signs Temperature 98.2 F 03/26/17 06:00 Pulse Rate 53 L 03/26/17 06:00 Respiratory Rate 18 03/26/17 06:00 Blood Pressure 117/62 03/26/17 06:00 O2 Sat by Pulse Oximetry (%) 97 03/25/17 21:00 CBCD WBC 5.6 K/mm3 (4.0-10.0) 03/26/17 06:00 RBC 4.44 M/mm3 (4.00-5.60) 03/26/17 06:00 Hgb 13.2 GM/dL (11.7-16.9) 03/26/17 06:00 Hct 39.5 % (35.4-49) 03/26/17 06:00 MCV 89.1 fl (80-96) 03/26/17 06:00 MCHC 33.3 g/dl (32.0-35.9) 03/26/17 06:00 RDW 14.8 % (11.9-15.9) 03/26/17 06:00 Plt Count 213 K/MM3 (134-434) 03/26/17 06:00 MPV 7.0 fl (7.5-11.1) L 03/26/17 06:00 CMP Sodium 141 mmol/L (136-145) 03/26/17 06:00 Potassium 3.3 mmol/L (3.5-5.1) L 03/26/17 06:00 Chloride 102 mmol/L (98-107) 03/26/17 06:00 Carbon Dioxide 32 mmol/L (21-32) 03/26/17 06:00 Anion Gap 7 (8-16) L 03/26/17 06:00 BUN 8 mg/dL (7-18) D 03/26/17 06:00 Creatinine 0.8 mg/dL (0.7-1.3) 03/26/17 06:00 Creat Clearance w eGFR > 60 (>60) 03/26/17 06:00 Random Glucose 98 mg/dL (74-106) 03/26/17 06:00 Calcium 8.5 mg/dL (8.5-10.1) 03/26/17 06:00 Total Bilirubin 1.1 mg/dL (0.2-1.0) H 03/26/17 06:00 AST 67 U/L (15-37) H 03/26/17 06:00 ALT 123 U/L (12-78) H 03/26/17 06:00 Alkaline Phosphatase 111 U/L (45-117) 03/26/17 06:00 Total Protein 6.1 g/dl (6.4-8.2) L 03/26/17 06:00 Albumin 3.2 g/dl (3.4-5.0) L 03/26/17 06:00 CARDIAC ENZYMES Creatine Kinase 275 IU/L (39-308) D 03/26/17 06:00 Troponin I < 0.02 ng/ml (0.00-0.05) 03/24/17 11:00 Current Medications Generic Name Dose Route Start Last Admin Trade Name Freq PRN Reason Stop Dose Admin Amlodipine Besylate 10 mg 03/24/17 19:00 03/26/17 09:30 Norvasc - PO 10 mg DAILY [facility] Administration Aspirin 81 mg 03/25/17 10:00 03/26/17 09:30 Asa - PO 81 mg DAILY [facility] Administration Carvedilol 6.25 mg 03/24/17 22:00 03/26/17 09:30 Coreg - PO 6.25 mg BID [facility] Administration Heparin Sodium (Porcine) 5,000 unit 03/24/17 22:00 03/26/17 05:42 Heparin - SQ 5,000 unit TID [facility] Administration Famotidine/Sodium Chloride 50 mls @ 100 mls/hr 03/24/17 22:00 03/26/17 09:30 Pepcid 20 Mg Premixed Ivpb - IVPB 100 mls/hr BID [facility] Administration Insulin Aspart 1 vial 03/24/17 16:30 03/26/17 06:02 Novolog Vial Sliding Scale - SQ Not Given ACHS [facility] Protocol Ondansetron HCl 4 mg 03/24/17 15:34 Zofran Injection IVPB Q6H PRN NAUSEA Potassium Chloride 20 meq 03/25/17 22:00 03/26/17 09:30 K-Dur - PO 03/26/17 22:01 20 meq BID [facility] Administration Home Medications Medication Instructions Recorded Carvedilol 6.25 mg PO BID 12/20/12 Amlodipine Besylate 10 mg PO DAILY 03/24/17 Aspirin [ASA -] 81 mg PO DAILY 03/24/17 Dorzolamide HCl/Timolol Maleat 10 ml OP DAILY 03/24/17 [Cosopt Eye Drops] Enalapril Maleate [Vasotec -] 10 mg PO BID 03/24/17 Insulin NPH Hum/Reg Insulin Hm 20 unit SQ BID 03/24/17 [Humulin 70-30 Vial] Metformin HCl 500 mg PO BID 03/24/17 Pravastatin Sodium 20 mg PO DAILY 03/24/17 Rosiglitazone Maleate [Avandia] 2 mg PO BID 03/24/17 Vardenafil HCl [Levitra] 20 mg PO HS 03/24/17 PE: per resident's note ASSESSMENT AND PLAN: Pt is a 66yo M with a PMHx of HTN, DM2, HLD who recently started taking new supplements and presented with 2-3 weeks of progressively worsening nausea and vomiting. # Acute Hypokalemia being repleted s/p IV potassium and po potassium will give extra dose of 40meq po x 1 # Acute Nausea/Vomiting improved s/p zofran # Acute Kidney Injury (baseline 0.7); Cr on admission is 1.5-->1.0-->0.8 now , most likely due taking supplements such as protein supplements. # Elevated Creatine Kinase; CK is 494-->275, s/p IVF , is on hold the statin. # Acute Transaminitis possible due to statins vs Fatty Liver Disease vs Alcoholic Liver Disease; will hold Rosiglitazone and statins for now, Needs to follow up with his primary in a week, to repeat LFT, GI follow up if needed as per primary. # s/p Acute Hyponatremia improved from 131--139 now on IVF .9NS # Hypochloremia Likely from vomiting and GI chloride loss, improved # Asymptomatic Pyuria with repeat level in am, is normal now will send for culture. patient is asymptomatic # T2DM on Metformin at home, will hold Rosiglitazone since can impair the liver function and continue Metformin . # Hx of HTN .continue lisinopril 10mg , Amlodipine 10mg and Coreg 6.25mg BID # Hx of HLD hold Pravastatin for now Patient can be discharged home. Patient was seen by the dietition and given diabetic diet recommendation
[2017-03-26 11:04] LABS: URINE APPEARANCE CLEAR; URINE BILIRUBIN NEGATIVE (NEGATIVE); URINE BLOOD NEGATIVE (NEGATIVE); URINE COLOR LTYELLOW; URINE GLUCOSE (UA) NEGATIVE (NEGATIVE); URINE KETONE NEGATIVE (NEGATIVE); URINE LEUK ESTERASE NEGATIVE (NEGATIVE); URINE NITRITE NEGATIVE (NEGATIVE); URINE PROTEIN NEGATIVE (NEGATIVE)
[2017-03-26] MEDS ORDERED: PATIENT'S OWN MEDICATION (NON-FORMULARY) (Dorzolamide Hcl/Timolol Maleat [Cosopt Eye Drops OP SCH (12:45)
[2017-03-26] MEDS ORDERED: metFORMIN HCL 500 MG TABLET (FP) PO SCH (12:45)
[2017-03-26] MEDS ORDERED: POTASSIUM CHLORIDE TABS 20 MEQ TABLET.ER (FP) PO ONE (13:15)
[2017-03-26 15:10] VITALS: BP 115/78; PULSE 70; TEMP 98.2
--- NOTE | 2017-03-26 20:22 | DS ---
Physical Exam: SUBJECTIVE: Patient seen and examined this AM without complaints. No episodes of Nausea and vomitting throughout the hospitalization. Patient was educated on better diet habits. No Cp, no SOB, no fevers, no chills. OBJECTIVE: Vital Signs Period Temp Pulse Resp BP Sys/[place] Pulse Ox Last 24 Hr 97.6 F-98.4 F 51-70 16-18 115-147/51-84 97-97 PHYSICAL EXAM GENERAL: Awake, alert, and fully oriented, in no acute distress. HEENT: L eye - PERRLA; R eye - post-surgical changes. EOMi. No pharyngeal erythema, no exudate, no tonsilar adenopathy, no neck LAD LUNGS: CTABL, no wheezes, no crackles, no accessory muscle use ABD: Soft, nontender, non-distended, normoactive bowel sounds, no guarding, no rebound, no masses, negative elmore's sign MSK: Normal range of motion at all joints. No bony deformities or tenderness. No CVA tenderness. 2+ pulses, warm, no peripheral edema NEURO: Cranial nerves II-XII intact. Sensation was equal and intact in face and body bilaterally. Muscle strength is 5/5 in all extremities. Reflexes 2+. Normal speech. Alert and oriented x3 DFE: No vibratory sensation in feet, no ulcers, minimal proprioception. LABS Laboratory Results - last 24 hr 03/25/17 03/26/17 03/26/17 21:07 05:44 06:00 WBC RBC Hgb Hct MCV MCH MCHC RDW Plt Count MPV Neutrophils % Lymphocytes % Monocytes % Eosinophils % Basophils % Sodium 141 Potassium 3.3 L Chloride 102 Carbon Dioxide 32 Anion Gap 7 L BUN 8 D Creatinine 0.8 Creat Clearance w eGFR > 60 POC Glucometer 107 106 Random Glucose 98 Calcium 8.5 Phosphorus 2.8 Magnesium 2.2 Total Bilirubin 1.1 H AST 67 H ALT 123 H Alkaline Phosphatase 111 Creatine Kinase Creatine Kinase Index CK-MB (CK-2) CK-MB (CK-2) Rel Index Total Protein 6.1 L Albumin 3.2 L Urine Color Urine Appearance Urine pH Ur Specific [place] Urine Protein Urine Glucose (UA) Urine Ketones Urine Blood Urine Nitrite Urine Bilirubin Urine Urobilinogen Ur Leukocyte Esterase 03/26/17 03/26/17 03/26/17 06:00 06:00 06:00 WBC 5.6 RBC 4.44 Hgb 13.2 Hct 39.5 MCV 89.1 MCH 29.7 MCHC 33.3 RDW 14.8 Plt Count 213 MPV 7.0 L Neutrophils % 53.5 Lymphocytes % 34.5 Monocytes % 7.0 Eosinophils % 4.0 D Basophils % 1.0 Sodium Potassium Chloride Carbon Dioxide Anion Gap BUN Creatinine Creat Clearance w eGFR POC Glucometer Random Glucose Calcium Phosphorus Magnesium Total Bilirubin AST ALT Alkaline Phosphatase Creatine Kinase 275 D Creatine Kinase Index 0.5 CK-MB (CK-2) 1.281 CK-MB (CK-2) Rel Index Cancelled Total Protein Albumin Urine Color Urine Appearance Urine pH Ur Specific [place] Urine Protein Urine Glucose (UA) Urine Ketones Urine Blood Urine Nitrite Urine Bilirubin Urine Urobilinogen Ur Leukocyte Esterase 03/26/17 03/26/17 09:00 11:20 WBC RBC Hgb Hct MCV MCH MCHC RDW Plt Count MPV Neutrophils % Lymphocytes % Monocytes % Eosinophils % Basophils % Sodium Potassium Chloride Carbon Dioxide Anion Gap BUN Creatinine Creat Clearance w eGFR POC Glucometer 121 Random Glucose Calcium Phosphorus Magnesium Total Bilirubin AST ALT Alkaline Phosphatase Creatine Kinase Creatine Kinase Index CK-MB (CK-2) CK-MB (CK-2) Rel Index Total Protein Albumin Urine Color Ltyellow Urine Appearance Clear Urine pH 9.0 H Ur Specific [place] 1.015 Urine Protein Negative Urine Glucose (UA) Negative Urine Ketones Negative Urine Blood Negative Urine Nitrite Negative Urine Bilirubin Negative Urine Urobilinogen 2.0 Ur Leukocyte Esterase Negative HOSPITAL COURSE: Date of Admission:03/24/17 Date of Discharge: 03/26/17 IMAGING RUQ U/S - Fatty Liver, contracted GB, questionable sludge, possible gallstones. ASSESSMENT/PLAN: Mr. Geovanni Mckeon is a 66yo M with a past medical history of HTN, DM2, HLD, who recently started taking Viagara and new supplements and presented with 2-3 weeks of progressively worsening nausea and vomiting. # Nausea/Vomiting - The patient admitted that since taking Viagara and his new supplements, he has experienced nausea and vomitting. The patient also admitted that when he eats too many "bad foods" like excessive carbohydrates he feels the need to vomit. At times when he eats, he feels he has to have a bowel movement within the hour or else something is wrong. There may be a psychogenic component and possible eating disorder. The patient is advised to followup with his primary care doctor as an outpatient, may need psychology referral. The patient had no episdoes of emesis during the hospitalization. We educated the patient on proper eating habits, and had a nutritinoist come in and speak to him. # Acute Kidney Injury (baseline 0.7) - The patient's creatinine on admission was 1.5, and likely due to hypoperfusion since it resolved with IV hydration. His home lisinopril was held for ISAAC, but restarted at discharge. # Transaminitis - The patient's elevated AST/ALT was partially due to shock liver because it resolved partially with hydratino. However, the liver enzymes are still not normal. This could be due to medication sfx from statin vs Rosiglitazone vs fatty liver (detected on U/S). We held those medications at discharge, and recommend workup for this transaminitis including repeat CMP in 2 weeks. The PCP can then restart the statin + rosiglitazone. # Other - Hyponatremia: This was likely hypovolemic hyponatremia especially since it resolved with fluids - Hypochloremia: This was likely from vomitting and GI chloride loss since it resolved with fluids - Elevated CK: This was likely due to his supplements, resolved with abstinence + fluids, no myalgia durnig hospitalization - Asymptomatic Pyuria: The patient was asymptomatic, and was not treated, f/u urine cx was negative - Hx of DM2: The patient was on a SSI in the hospital, we restarted Insulin NPH 20u BID + Metformin 500mg BID at discharge - Hx of HTN: The patient's BP was monitored, and stable. Lisinopril was held, but patient received his home amlodipine + carvedilol - Hx of HLD: The patient's pravastatin was held due to transaminitis The patient was made aware of the hospital course, and agrees with the plan at discharge. Minutes to complete discharge: 55 Discharge Summary Reason For Visit: ACUTE KIDNEY INJURY Condition: Stable - Instructions Diet, Activity, Other Instructions: You came to the hospital because you were having episodes of nausea and vomiting which caused problems with your electrolytes and caused you to have acute kidney injury. We gave you some IV fluids and you improved. We advised you not to take any more supplements, including your enhancement supplements, supplements to move your bowels, and workout supplements. We advised you to eat a proper diabetic diet, and you were counseled by a whizzer operator. Please see your Primary Care Doctor in 1 week If you have any serious symptoms, please return to the ED NOTE TO DR. WILSON PRIMARY CARE DOCTOR We changed the following medications at discharge: Held Pravastatin - for LFT elevation Held Rosiglitazone for LFT elevation Please repeat CMP in 2 weeks to reassess transaminitis We also added Colace 300mg QHS We also would advise you to discuss dietary habits with this patient. Referrals: Jose Wilson MD, MD [Primary Care Provider] - 2 Weeks () Disposition: HOME - Home Medications Comprehensive Discharge Medication List: Ambulatory Orders Carvedilol 6.25 mg PO BID 12/20/12 Amlodipine Besylate 10 mg PO DAILY 03/24/17 Aspirin [ASA -] 81 mg PO DAILY 03/24/17 Dorzolamide HCl/Timolol Maleat [Cosopt Eye Drops] 10 ml OP DAILY 03/24/17 Enalapril Maleate [Vasotec -] 10 mg PO BID 03/24/17 Insulin NPH Hum/Reg Insulin Hm [Humulin 70-30 Vial] 20 unit SQ BID 03/24/17 Metformin HCl 500 mg PO BID 03/24/17 Docusate Sodium [Colace -] 300 mg PO HS #30 capsule 03/26/17 This patient is new to me today: No Emergency Visit: No Critical Care patient: No - Discharge Referral Referred to [facility] Med P.C.: No
[2017-03-26] MEDS ORDERED: ENALAPRIL MALEATE 10 MG TABLET (FP) PO SCH (22:00)
[2017-03-26] MEDS ORDERED: CARVEDILOL 6.25 MG TABLET (FP) PO SCH (22:00)
--- NOTE | 2017-03-27 09:11 | EKG ---
Test Reason : Blood Pressure : / mmHG Vent. Rate : 056 BPM Atrial Rate : 056 BPM P-R Int : 166 ms QRS Dur : 110 ms QT Int : 458 ms P-R-T Axes : 029 -01 000 degrees QTc Int : 441 ms SINUS BRADYCARDIA CANNOT RULE OUT ANTERIOR INFARCT , AGE UNDETERMINED ABNORMAL ECG NO PREVIOUS ECGS AVAILABLE Confirmed by DOUG DE LA ROSA, BLESSING ([id number]) on 03/27/2017 9:11:03 AM Referred By: Confirmed By:BLESSING CAMACHO MD
[2017-03-27] MEDS ORDERED: amLODIPine BESYLATE 10 MG TABLET (FP) PO SCH (10:00)
== END 2017-03-26 16:00 | disposition home or self-care (01) | DRG 683 ==
LOC: JER 09:58 → JERBED 14:35 → J8W 18:35
PROVIDERS: ADMIT Internal Medicine; ATTEND Internal Medicine
DX: N17.9 Acute kidney failure, unspecified (principal); E87.1 Hypo-osmolality and hyponatremia; N39.0 Urinary tract infection, site not specified; I10 Essential (primary) hypertension; E78.5 Hyperlipidemia, unspecified; E11.9 Type 2 diabetes mellitus without complications; F17.210 Nicotine dependence, cigarettes, uncomplicated; Z79.4 Long term (current) use of insulin; R00.1 Bradycardia, unspecified; E87.8 Other disorders of electrolyte and fluid balance, not elsewhere classified; R74.0 Nonspecific elevation of levels of transaminase and lactic acid dehydrogenase [LDH]; E87.6 Hypokalemia; R11.2 Nausea with vomiting, unspecified; K76.0 Fatty (change of) liver, not elsewhere classified
CPT/HCPCS: 36415; 76705-TC; 80053; 80074; 81003; 81015; 82550; 82553; 83690; 83735; 83880; 84100; 84484; 85025; 85027; 87086; 93005; 93010; 99285-25; J1644

== ENCOUNTER 2017-04-05 09:42 | Inpatient (IN) | payer OTHER ==
[2017-04-05 09:45] VITALS: BMI 26.6
[2017-04-05] MEDS ORDERED: PANTOPRAZOLE SODIUM IVPB ONE (10:28)
--- NOTE | 2017-04-05 10:32 | PDOC ---
History of Present Illness - General Chief Complaint: Nausea/Vomiting Stated Complaint: VOMITING (PCP SENT) Time Seen by Provider: 04/05/17 10:20 History Source: Patient Exam Limitations: No Limitations - History of Present Illness Initial Comments: CHIEF COMPLAINT: 66 y/o afebrile male with PMH HTN, IDDM sent in by PCP for evaluation of vomiting. HISTORY OF PRESENT ILLNESS: The patient states he has been vomiting for 5-6 days. He states he does not feel nauseous and continues to eat normally. He states it feels like his food cannot pass into his intestines. He admits he is starting to feel weak. He saw his PCP today who sent him here. He denies f/c, cough, hemoptysis, hematemesis, nausea, hematemesis, diarrhea, CP, SOB, abd pain , back pain, hematuria, dysuria, melena, BRBPR. He admits he has not had a bowel movement in 5 days but is able to pass gas. PCP is Dr. Jose Diaz Vital signs on arrival are notable for pulse of 96. REVIEW OF SYSTEMS: GENERAL/CONSTITUTIONAL: No fever/chills. + weakness. No weight change. HEAD, EYES, EARS, NOSE AND THROAT: No change in vision. No ear pain or discharge. No sore throat. CARDIOVASCULAR: No chest pain or shortness of breath. RESPIRATORY: No cough, wheezing, or hemoptysis. GASTROINTESTINAL: +vomiting. +constipation (no BM in 5 days) No nausea, diarrhea. No abd pain. No hematemesis. No melena or BRBPR. GENITOURINARY: No dysuria, frequency, or change in urination. MUSCULOSKELETAL: No joint or muscle swelling or pain. No neck or back pain. SKIN: No rash or easy bruising. NEUROLOGIC: No headache, vertigo, loss of consciousness, or loss of sensation. PHYSICAL EXAM: GENERAL: The patient is awake, alert, and fully oriented, in no acute distress. He is very well appearing, pleasant, ambulatory, in NAD or obvious discomfort. HEAD: Normal with no signs of trauma. ENT: Pupils equal, round and reactive to light, extraocular movements intact, sclera anicteric, conjunctiva clear. Neck supple. LUNGS: Clear to auscultation bilaterally. Normal excursion. No respiratory distress or use of accessory muscles. CV: RRR, S1/S2, no MRG. Cap refill < 2 sec. ABDOMEN: Soft, non-distended, non-tender to palpation. Negative Monroe's sign. No rebound, guarding or rigidity. Normal BS in epigastric and RUQ. Hypoactive bowel sounds in lower quadrants EXTREMITIES: Normal range of motion, no edema. NEUROLOGICAL: Normal speech, normal gait. CN II-XII grossly intact. PSYCH: Normal mood, normal affect. SKIN: Warm, dry, normal turgor, no rashes or lesions noted. Past History - Past Medical History Allergies/Adverse Reactions: Allergies Allergy/AdvReac Type Severity Reaction Status Date / Time No Known Allergies Allergy Verified 04/05/17 09:45 Home Medications: Ambulatory Orders Carvedilol 6.25 mg PO BID 12/20/12 Amlodipine Besylate 10 mg PO DAILY 03/24/17 Aspirin [ASA -] 81 mg PO DAILY 03/24/17 Dorzolamide HCl/Timolol Maleat [Cosopt Eye Drops] 10 ml OP DAILY 03/24/17 Enalapril Maleate [Vasotec -] 10 mg PO BID 03/24/17 Insulin NPH Hum/Reg Insulin Hm [Humulin 70-30 Vial] 20 unit SQ BID 03/24/17 Metformin HCl 500 mg PO BID 03/24/17 Docusate Sodium [Colace -] 300 mg PO HS #30 capsule 03/26/17 Diabetes: Yes GI Disorders: Yes (chronic constipation) HTN: Yes Hypercholesterolemia: Yes - Psycho/Social/Smoking Cessation Hx Anxiety: No Suicidal Ideation: No Smoking Status: Yes Smoking History: Never smoked Have you smoked in the past 12 months: No Number of Cigarettes Smoked Daily: 0 Hx Alcohol Use: No Drug/Substance Use Hx: No Substance Use Type: None *Physical Exam - Vital Signs Last Vital Signs Temp Pulse Resp BP Pulse Ox 98.4 F 96 H 20 121/70 97 04/05/17 09:43 04/05/17 09:43 04/05/17 09:43 04/05/17 09:43 04/05/17 09:43 Heart Score/ECG Review - ECG Intrepretation Comment:: Twelve-lead EKG was performed and reviewed by Dr. Waterman. There is normal sinus rhythm with a normal rate. The axis is normal. The intervals are normal. Septal infarct, age undetermined. Impression: Abnormal twelve-lead EKG ED Treatment Course - LABORATORY CBC & Chemistry Diagram: 04/05/17 10:54 04/05/17 10:54 Medical Decision Making - Medical Decision Making A/P: 66 y/o male with vomiting x5 days without BM in 5 days. Concerned for obstruction given insulin dependent diabetic. Plan is as follows: 1. Labs 2. UA/culture 3. Insert IV 4. IV fluids 5. Abd xray Potassium 2.2 BUN and creatinine elevated with ISAAC as compared to 03/26/17. Ordered 3 IV K-riders, 2nd bag of IV fluids, magnesium level and IV reglan Abd xray IMPERSSION: No evidence of ileus, obstruction or free air Ordered CT scan abd/pelvis CT scan abd/pelvis IMPRESSION: No bowel obstruction seen. Enlarged pancreatic head for which MRI or pancreatic protocol CT scan is needed. Spoke with hospitalist and will admit to Dr. Aguillon. Informed the patient of the plan for admission and he is amenable. *DC/Admit/Observation/Transfer Diagnosis at time of Disposition: Hypokalemia, ISAAC (acute kidney injury), Lactic acidosis, Elevated liver enzymes Vomiting Qualifiers: Vomiting type: unspecified Vomiting Intractability: unspecified Nausea presence : without nausea Qualified Code(s): R11.11 - Vomiting without nausea - Discharge Dispostion Condition at time of disposition: Stable Admit: Yes - Referrals Referrals: Jose Diaz MD, MD [Primary Care Provider] -
[2017-04-05] MEDS ORDERED: SODIUM CHLORIDE 1,000 ML IV STA ×2 (10:34→11:49)
[2017-04-05 11:04] LABS: BASOPHIL 0.7 % (0-2.0); EOSINOPHIL 1.1 % (0-4.5); MCH 29.3 pg (25.7-33.7); MEAN CELL VOLUME 88.9 fl (80-96); MEAN PLT VOLUME 7.1 fl (7.5-11.1); NEUTROPHILS 54.6 % (42.8-82.8); PLATELET COUNT 265 K/MM3 (134-434); RDW 13.9 % (11.9-15.9); WHITE BLOOD COUNT 7.7 K/mm3 (4.0-10.0)
[2017-04-05 11:33] LABS: ALBUMIN 4.2 g/dl (3.4-5.0); ANION GAP 11 (8-16); CALCIUM 10.3 mg/dL (8.5-10.1); CO2 42 mmol/L (21-32); CREATININE 1.9 mg/dL (0.7-1.3); GLUCOSE,RANDOM 151 mg/dL (74-106); SGOT/AST 66 U/L (15-37); SGPT/ALT 108 U/L (12-78)
[2017-04-05 11:37] LABS: ALK PHOS 149 U/L (45-117); BILIRUBIN,TOTAL 1.3 mg/dL (0.2-1.0); CPK 402 IU/L (39-308); TOT PROT 8.2 g/dl (6.4-8.2); TROPONIN I < 0.02 ng/ml (0.00-0.05)
[2017-04-05] MEDS ORDERED: METOCLOPRAMIDE HCL INJECTION 10 MG/2 ML VIAL IVPB ONE (11:49)
[2017-04-05] MEDS ORDERED: METOCLOPRAMIDE HCL INJECTION 10 MG/2 ML VIAL ONE (11:55)
[2017-04-05] MEDS ORDERED: KCL 10 MEQ IVPB 200 ML IVPB ONE (11:55)
[2017-04-05] MEDS: KCL 10 MEQ IVPB 100 ML IVPB SCH ×3 (12:10→17:50)
[2017-04-05 12:29] LABS: MAGNESIUM 2.5 mg/dL (1.8-2.4)
--- NOTE | 2017-04-05 13:00 | EKG ---
Test Reason : Blood Pressure : / mmHG Vent. Rate : 078 BPM Atrial Rate : 078 BPM P-R Int : 160 ms QRS Dur : 114 ms QT Int : 428 ms P-R-T Axes : 056 -03 007 degrees QTc Int : 487 ms NORMAL SINUS RHYTHM POSSIBLE LEFT ATRIAL ENLARGEMENT SEPTAL INFARCT (CITED ON OR BEFORE 24-MAR-2017) ABNORMAL ECG WHEN COMPARED WITH ECG OF 24-MAR-2017 11:10, NO SIGNIFICANT CHANGE WAS FOUND Confirmed by GABINO LUNA MD ([id number]) on 04/05/2017 12:59:48 PM Referred By: Confirmed By:GABINO LUNA MD
--- NOTE | 2017-04-05 15:05 | PDOC ---
*Physical Exam - Vital Signs Last Vital Signs Temp Pulse Resp BP Pulse Ox 98.4 F 96 H 20 121/70 96 04/05/17 09:43 04/05/17 09:43 04/05/17 09:43 04/05/17 09:43 04/05/17 10:20 ED Treatment Course - LABORATORY CBC & Chemistry Diagram: 04/05/17 10:54 04/05/17 10:54 - ADDITIONAL ORDERS Additional order review: Laboratory Results 04/05/17 04/05/17 04/05/17 11:40 10:54 10:54 Sodium 132 L Potassium 2.6 L* D Chloride 79 L D Carbon Dioxide 42 H D Anion Gap 11 BUN 24 H D Creatinine 1.9 H D Creat Clearance w eGFR 35.64 Random Glucose 151 H D Lactic Acid 4.7 H* Calcium 10.3 H D Magnesium Cancelled 2.5 H Total Bilirubin 1.3 H AST 66 H ALT 108 H Alkaline Phosphatase 149 H D Creatine Kinase 402 H Creatine Kinase Index 0.2 CK-MB (CK-2) < 1.000 Troponin I < 0.02 Total Protein 8.2 D Albumin 4.2 D Lipase 125 04/05/17 10:54 RBC 5.27 MCV 88.9 MCHC 33.0 RDW 13.9 MPV 7.1 L Neutrophils % 54.6 Lymphocytes % 33.9 Monocytes % 9.7 Eosinophils % 1.1 Basophils % 0.7 - Medications Given in the ED: ED Medications Discontinued Medications Generic Name Dose Route Start Last Admin Trade Name Freq PRN Reason Stop Dose Admin Sodium Chloride 1,000 mls @ 1,000 mls/hr 04/05/17 10:34 04/05/17 10:40 Normal Saline - IV 04/05/17 11:33 1,000 mls/hr ASDIR STA Administration Potassium Chloride 100 mls @ 100 mls/hr 04/05/17 12:00 04/05/17 12:10 Potassium Chloride 10 Meq Premix Ivpb - IVPB 04/05/17 14:59 100 mls/hr Q60M SAWYER Administration Sodium Chloride 1,000 mls @ 1,000 mls/hr 04/05/17 11:49 04/05/17 13:40 Normal Saline - IV 04/05/17 12:48 1,000 mls/hr ASDIR STA Administration Metoclopramide HCl 10 mg 04/05/17 11:49 04/05/17 12:05 Reglan Injection - IVPB 04/05/17 11:50 10 mg ONCE ONE Administration Medical Decision Making - Medical Decision Making 04/05/17 15:01 Seen with PA, agree with her assessment and plan A/P: 66yo M IDDM p/w vomiting and PO intolerance. Exam with NTND abdomen with no rebound or guarding. Concern for obstruction vs ileus vs gastroparesis. Plan for labs, fluid resusitation, XR, and CTAP. Likely admission. 04/05/17 16:53 CT scan abd/pelvis IMPRESSION: No bowel obstruction seen. Enlarged pancreatic head for which MRI or pancreatic protocol CT scan is needed. Spoke with hospitalist and will admit to Dr. Aguillon. Informed the patient of the plan for admission and he is amenable. *DC/Admit/Observation/Transfer Diagnosis at time of Disposition: Hypokalemia, ISAAC (acute kidney injury), Lactic acidosis, Elevated liver enzymes Vomiting Qualifiers: Vomiting type: unspecified Vomiting Intractability: unspecified Nausea presence : without nausea Qualified Code(s): R11.11 - Vomiting without nausea - Discharge Dispostion Condition at time of disposition: Stable Admit: Yes
[2017-04-05] MEDS ORDERED: KCL 10 MEQ IVPB 100 ML IVPB ONE (17:21)
[2017-04-05 17:39] LABS: URINE APPEARANCE CLEAR; URINE BILIRUBIN NEGATIVE (NEGATIVE); URINE BLOOD NEGATIVE (NEGATIVE); URINE COLOR YELLOW; URINE GLUCOSE (UA) NEGATIVE (NEGATIVE); URINE KETONE NEGATIVE (NEGATIVE); URINE NITRITE NEGATIVE (NEGATIVE); URINE UROBILINOGEN NEGATIVE mg/dL (0.2-1.0)
--- NOTE | 2017-04-05 17:48 | HP ---
CHIEF COMPLAINT:Intractable vomiting. PCP:Dr. Jose Diaz HISTORY OF PRESENT ILLNESS: 66 yo M with a PMHx of HTN, DM2, HLD who presented with 4 weeks of progressively worsening nausea/vomiting. He states that has had non-blody non- bilous vomiting x3/day. He states that he feels as if his "digestive system isn 't working". He has the sensation that food goes in his stomach but stays there and he feels the need to vomit. He states that his continues to have a good appetite despite vomiting. He was admitted approx. 2 weeks ago for same issue and was discharged with instructions to stop supplements he was taking for exercise and constipation. Denies CP, GRIDER, SOB, abdominal pain, palpitations, fevers or chills. ER course was notable for: (1)Ct abdomen was negative for bowel obstruction but did show enlarged pancreas. (2)Lactic acid was elevated to 4.7 and given IV bolus of NS (3)ISAAC with Cr of 1.9 (0.9 at baseline) Recent Travel: Denies PAST MEDICAL HISTORY:HTN, DM2, HLD PAST SURGICAL HISTORY:L eye glaucoma surgery Social History: Smoking:former smoker Alcohol:socially Drugs:Denies Family History: Allergies No Known Allergies Allergy (Verified 04/05/17 09:45) HOME MEDICATIONS: Home Medications Medication Instructions Recorded Carvedilol 6.25 mg PO BID 12/20/12 Amlodipine Besylate 10 mg PO DAILY 03/24/17 Aspirin [ASA -] 81 mg PO DAILY 03/24/17 Dorzolamide HCl/Timolol Maleat 10 ml OP DAILY 03/24/17 [Cosopt Eye Drops] Enalapril Maleate [Vasotec -] 10 mg PO BID 03/24/17 Insulin NPH Hum/Reg Insulin Hm 20 unit SQ BID 03/24/17 [Humulin 70-30 Vial] Metformin HCl 500 mg PO BID 03/24/17 Docusate Sodium [Colace -] 300 mg PO HS #30 capsule 03/26/17 REVIEW OF SYSTEMS CONSTITUTIONAL: Absent: fever, chills, diaphoresis, generalized weakness, malaise, loss of appetite, weight change HEENT: Absent: rhinorrhea, nasal congestion, throat pain, throat swelling, difficulty swallowing, mouth swelling, ear pain, eye pain, visual changes CARDIOVASCULAR: Absent: chest pain, syncope, palpitations, irregular heart rate, lightheadedness , peripheral edema RESPIRATORY: Absent: cough, shortness of breath, dyspnea with exertion, orthopnea, wheezing, stridor, hemoptysis GASTROINTESTINAL:vomiting, Absent: abdominal pain, abdominal distension, nausea, diarrhea, constipation, melena, hematochezia GENITOURINARY: Absent: dysuria, frequency, urgency, hesitancy, hematuria, flank pain, genital pain MUSCULOSKELETAL: Absent: myalgia, arthralgia, joint swelling, back pain, neck pain SKIN: Absent: rash, itching, pallor HEMATOLOGIC/IMMUNOLOGIC: Absent: easy bleeding, easy bruising, lymphadenopathy, frequent infections ENDOCRINE: Absent: unexplained weight gain, unexplained weight loss, heat intolerance, cold intolerance NEUROLOGIC: Absent: headache, focal weakness or paresthesias, dizziness, unsteady gait, seizure, mental status changes, bladder or bowel incontinence PSYCHIATRIC: Absent: anxiety, depression, suicidal or homicidal ideation, hallucinations. PHYSICAL EXAMINATION GENERAL:AAO x3, NAD HEAD:NC/AT EYES: Pupils equal, round and reactive to light, extraocular movements intact, sclera anicteric, conjunctiva clear. No lid lag. EARS, NOSE, THROAT: Dry mucous membranes. NECK: Normal range of motion, supple without lymphadenopathy, JVD, or masses. LUNGS: CTAB.No wheezes, and no crackles. No accessory muscle use. HEART: Regular rate and rhythm, normal S1 and S2 without murmur, rub or gallop. ABDOMEN: Soft, nontender, not distended, normoactive bowel sounds, no guarding, no rebound, no masses. No hepatomegaly or splenomegaly. MUSCULOSKELETAL: Normal range of motion at all joints. No bony deformities or tenderness. No CVA tenderness. UPPER EXTREMITIES: 2+ pulses, warm, well-perfused. No cyanosis. No clubbing. No peripheral edema. LOWER EXTREMITIES: 2+ pulses, warm, well-perfused. No calf tenderness. No peripheral edema. NEUROLOGICAL: Cranial nerves II-XII intact. Normal speech. gait not observed. PSYCHIATRIC: Cooperative. Good eye contact. Appropriate mood and affect. Laboratory Results - last 24 hr 04/05/17 04/05/17 04/05/17 10:54 10:54 10:54 WBC 7.7 D RBC 5.27 Hgb 15.4 D Hct 46.8 D MCV 88.9 MCH 29.3 MCHC 33.0 RDW 13.9 Plt Count 265 D MPV 7.1 L Neutrophils % 54.6 Lymphocytes % 33.9 Monocytes % 9.7 Eosinophils % 1.1 Basophils % 0.7 Sodium 132 L Potassium 2.6 L* D Chloride 79 L D Carbon Dioxide 42 H D Anion Gap 11 BUN 24 H D Creatinine 1.9 H D Creat Clearance w eGFR 35.64 Random Glucose 151 H D Lactic Acid 4.7 H* Calcium 10.3 H D Magnesium 2.5 H Total Bilirubin 1.3 H AST 66 H ALT 108 H Alkaline Phosphatase 149 H D Creatine Kinase 402 H Creatine Kinase Index 0.2 CK-MB (CK-2) < 1.000 Troponin I < 0.02 Total Protein 8.2 D Albumin 4.2 D Lipase 125 Urine Color Urine Appearance Urine pH Urine Protein Urine Glucose (UA) Urine Ketones Urine Blood Urine Nitrite Urine Bilirubin Urine Urobilinogen Ur Leukocyte Esterase 04/05/17 04/05/17 04/05/17 11:40 17:30 17:30 WBC RBC Hgb Hct MCV MCH MCHC RDW Plt Count MPV Neutrophils % Lymphocytes % Monocytes % Eosinophils % Basophils % Sodium Potassium Chloride Carbon Dioxide Anion Gap BUN Creatinine Creat Clearance w eGFR Random Glucose Lactic Acid 2.2 H* Calcium Magnesium Cancelled Total Bilirubin AST ALT Alkaline Phosphatase Creatine Kinase Creatine Kinase Index CK-MB (CK-2) Troponin I Total Protein Albumin Lipase Urine Color Yellow Urine Appearance Clear Urine pH 8.0 Urine Protein 1+ H Urine Glucose (UA) Negative Urine Ketones Negative Urine Blood Negative Urine Nitrite Negative Urine Bilirubin Negative Urine Urobilinogen Negative Ur Leukocyte Esterase 1+ H ASSESSMENT/PLAN: 66 yo M with a PMHx of HTN, DM2, HLD who presented with 4 weeks of progressively worsening nausea/vomiting placed on observation for intractable vomiting and ISAAC. Problem List - Problem (1) ISAAC (acute kidney injury) Assessment/Plan: * Most likely 2/2 volume depletion. * Will give IVF @ 125ml/hr * Repeat CMP in AM (2) Hypokalemia Assessment/Plan: * Will replete with IV potassium * repeat CMP in AM (3) Lactic acidosis Assessment/Plan: * Most likely secondary to metformin use. * Will hold metformin for now. * IVF and repeat Lactic acid (4) Vomiting Assessment/Plan: * Given Reglan in ED * No vomiting in ED * May represent Bulimia; Psych consult pending. (5) IDDM (insulin dependent diabetes mellitus) Assessment/Plan: * Metformin held 2/2 lactic acidosis. * BGM Q6h * NPO for now * NISS ACHS (6) HTN (hypertension) Assessment/Plan: * Amlodipine Besylate (Norvasc -) 10 mg PO DAILY * Aspirin (Asa -) 81 mg PO DAILY * Carvedilol (Coreg -) 6.25 mg PO BID. * Enalapril Maleate (Vasotec -) 10 mg PO BID (7) Hyponatremia Assessment/Plan: * Visit type - Emergency Visit Emergency Visit: Yes ED Registration Date: 04/05/17 Care time: The patient presented to the Emergency Department on the above date and was hospitalized for further evaluation of their emergent condition. - New Patient This patient is new to me today: Yes Date on this admission: 04/05/17 - Critical Care Critical Care patient: No
[2017-04-05 18:14] LABS: URINE LEUK ESTERASE 1+ (NEGATIVE); URINE PROTEIN 1+ (NEGATIVE)
[2017-04-05] MEDS ORDERED: D5-1/2NS+20 MEQ KCL - 1,000 ML IV SCH (18:30)
--- NOTE | 2017-04-05 19:08 | PN ---
Teaching Attending Note Name of Resident: Ernie Coburn ATTENDING PHYSICIAN STATEMENT I saw and evaluated the patient. I reviewed the resident's note and discussed the case with the resident. I agree with the resident's findings and plan as documented. SUBJECTIVE: Patient continues to have nausea and vomiting. No shortness of breath. OBJECTIVE: Vital Signs Temperature 97.7 F 04/05/17 18:48 Pulse Rate 60 04/05/17 18:48 Respiratory Rate 18 04/05/17 18:48 Blood Pressure 130/78 04/05/17 18:48 O2 Sat by Pulse Oximetry (%) 96 04/05/17 18:48 CBCD WBC 7.7 K/mm3 (4.0-10.0) D 04/05/17 10:54 RBC 5.27 M/mm3 (4.00-5.60) 04/05/17 10:54 Hgb 15.4 GM/dL (11.7-16.9) D 04/05/17 10:54 Hct 46.8 % (35.4-49) D 04/05/17 10:54 MCV 88.9 fl (80-96) 04/05/17 10:54 MCHC 33.0 g/dl (32.0-35.9) 04/05/17 10:54 RDW 13.9 % (11.9-15.9) 04/05/17 10:54 Plt Count 265 K/MM3 (134-434) D 04/05/17 10:54 MPV 7.1 fl (7.5-11.1) L 04/05/17 10:54 CMP Sodium 132 mmol/L (136-145) L 04/05/17 10:54 Potassium 2.6 mmol/L (3.5-5.1) L* D 04/05/17 10:54 Chloride 79 mmol/L (98-107) L D 04/05/17 10:54 Carbon Dioxide 42 mmol/L (21-32) H D 04/05/17 10:54 Anion Gap 11 (8-16) 04/05/17 10:54 BUN 24 mg/dL (7-18) H D 04/05/17 10:54 Creatinine 1.9 mg/dL (0.7-1.3) H D 04/05/17 10:54 Creat Clearance w eGFR 35.64 (>60) 04/05/17 10:54 Random Glucose 151 mg/dL (74-106) H D 04/05/17 10:54 Calcium 10.3 mg/dL (8.5-10.1) H D 04/05/17 10:54 Total Bilirubin 1.3 mg/dL (0.2-1.0) H 04/05/17 10:54 AST 66 U/L (15-37) H 04/05/17 10:54 ALT 108 U/L (12-78) H 04/05/17 10:54 Alkaline Phosphatase 149 U/L (45-117) H D 04/05/17 10:54 Total Protein 8.2 g/dl (6.4-8.2) D 04/05/17 10:54 Albumin 4.2 g/dl (3.4-5.0) D 04/05/17 10:54 CARDIAC ENZYMES Creatine Kinase 402 IU/L (39-308) H 04/05/17 10:54 Troponin I < 0.02 ng/ml (0.00-0.05) 04/05/17 10:54 Current Medications Generic Name Dose Route Start Last Admin Trade Name Freq PRN Reason Stop Dose Admin Amlodipine Besylate 10 mg 04/06/17 10:00 Norvasc - PO DAILY [facility] Aspirin 81 mg 04/06/17 10:00 Asa - PO DAILY [facility] Carvedilol 6.25 mg 04/05/17 22:00 Coreg - PO BID [facility] Docusate Sodium 300 mg 04/05/17 22:00 Colace - PO HS [facility] Enalapril Maleate 10 mg 04/05/17 22:00 Vasotec - PO BID [facility] Potassium Chloride/Dextrose/Sod Cl 1,000 mls @ 125 mls/hr 04/05/17 18:30 D5-1/2ns+20 Meq Kcl - IV ASDIR [facility] Non-Formulary Medication 10 ml 04/06/17 10:00 Dorzolamide Hcl/Timolol Maleat [Cosopt Eye Drops] OP DAILY [facility] Home Medications Medication Instructions Recorded Carvedilol 6.25 mg PO BID 12/20/12 Amlodipine Besylate 10 mg PO DAILY 03/24/17 Aspirin [ASA -] 81 mg PO DAILY 03/24/17 Dorzolamide HCl/Timolol Maleat 10 ml OP DAILY 03/24/17 [Cosopt Eye Drops] Enalapril Maleate [Vasotec -] 10 mg PO BID 03/24/17 Insulin NPH Hum/Reg Insulin Hm 20 unit SQ BID 03/24/17 [Humulin 70-30 Vial] Metformin HCl 500 mg PO BID 03/24/17 Docusate Sodium [Colace -] 300 mg PO HS #30 capsule 03/26/17 Laboratory Tests 04/05/17 04/05/17 04/05/17 10:54 10:54 17:30 Sodium 132 L Lactic Acid 4.7 H* 2.2 H* Calcium 10.3 H D Magnesium 2.5 H Total Bilirubin 1.3 H AST 66 H ALT 108 H Alkaline Phosphatase 149 H D PE: per resident's note ASSESSMENT AND PLAN: 66 yo M with a PMHx of HTN, DM2, HLD who presented with 4 weeks of progressively worsening nausea/vomiting placed on observation for intractable vomiting and ISAAC. # ISAAC (acute kidney injury)Most likely due to dehydration will continue IVF @ 125ml/hr. Repeat CMP in AM # Acute severe Hypokalemia, will replete with IV potassium ,repeat CMP in AM # Acute Lactic acidosis trending down on IVF continue # Intractable Nausea and vomiting will continue IVF, NPO for now # Acute transaminitis Us/CT of abdomen/pelvis pending DVT Px: early ambulation, SCDs
--- NOTE | 2017-04-05 19:25 | HP ---
CHIEF COMPLAINT:Intractable vomiting. PCP:Dr. Jose Diaz HISTORY OF PRESENT ILLNESS: 66 yo M with a PMHx of HTN, DM2, HLD who presented with 4 weeks of progressively worsening nausea/vomiting. He states that has had non-blody non- bilous vomiting x3/day. He states that he feels as if his "digestive system isn 't working". He has the sensation that food goes in his stomach but stays there and he feels the need to vomit. He states that his continues to have a good appetite despite vomiting. He was admitted approx. 2 weeks ago for same issue and was discharged with instructions to stop supplements he was taking for exercise and constipation. Denies CP, GRIDER, SOB, abdominal pain, palpitations, fevers or chills. ER course was notable for: (1)Ct abdomen was negative for bowel obstruction but did show enlarged pancreas. (2)Lactic acid was elevated to 4.7 and given IV bolus of NS (3)ISAAC with Cr of 1.9 (0.9 at baseline) Recent Travel: Denies PAST MEDICAL HISTORY:HTN, DM2, HLD PAST SURGICAL HISTORY:L eye glaucoma surgery Social History: Smoking:former smoker Alcohol:socially Drugs:Denies Family History: Allergies No Known Allergies Allergy (Verified 04/05/17 09:45) HOME MEDICATIONS: Home Medications Medication Instructions Recorded Carvedilol 6.25 mg PO BID 12/20/12 Amlodipine Besylate 10 mg PO DAILY 03/24/17 Aspirin [ASA -] 81 mg PO DAILY 03/24/17 Dorzolamide HCl/Timolol Maleat 10 ml OP DAILY 03/24/17 [Cosopt Eye Drops] Enalapril Maleate [Vasotec -] 10 mg PO BID 03/24/17 Insulin NPH Hum/Reg Insulin Hm 20 unit SQ BID 03/24/17 [Humulin 70-30 Vial] Metformin HCl 500 mg PO BID 03/24/17 Docusate Sodium [Colace -] 300 mg PO HS #30 capsule 03/26/17 REVIEW OF SYSTEMS CONSTITUTIONAL: Absent: fever, chills, diaphoresis, generalized weakness, malaise, loss of appetite, weight change HEENT: Absent: rhinorrhea, nasal congestion, throat pain, throat swelling, difficulty swallowing, mouth swelling, ear pain, eye pain, visual changes CARDIOVASCULAR: Absent: chest pain, syncope, palpitations, irregular heart rate, lightheadedness , peripheral edema RESPIRATORY: Absent: cough, shortness of breath, dyspnea with exertion, orthopnea, wheezing, stridor, hemoptysis GASTROINTESTINAL:vomiting, Absent: abdominal pain, abdominal distension, nausea, diarrhea, constipation, melena, hematochezia GENITOURINARY: Absent: dysuria, frequency, urgency, hesitancy, hematuria, flank pain, genital pain MUSCULOSKELETAL: Absent: myalgia, arthralgia, joint swelling, back pain, neck pain SKIN: Absent: rash, itching, pallor HEMATOLOGIC/IMMUNOLOGIC: Absent: easy bleeding, easy bruising, lymphadenopathy, frequent infections ENDOCRINE: Absent: unexplained weight gain, unexplained weight loss, heat intolerance, cold intolerance NEUROLOGIC: Absent: headache, focal weakness or paresthesias, dizziness, unsteady gait, seizure, mental status changes, bladder or bowel incontinence PSYCHIATRIC: Absent: anxiety, depression, suicidal or homicidal ideation, hallucinations PHYSICAL EXAMINATION Vital Signs - 24 hr 04/05/17 18:48 Temperature 97.7 F Pulse Rate [ 60 Right Radial] Respiratory 18 Rate Blood Pressure 130/78 [Left Arm] O2 Sat by Pulse 96 Oximetry (%) GENERAL:AAO x3, NAD HEAD:NC/AT EYES: Pupils equal, round and reactive to light, extraocular movements intact, sclera anicteric, conjunctiva clear. No lid lag. EARS, NOSE, THROAT: Dry mucous membranes. NECK: Normal range of motion, supple without lymphadenopathy, JVD, or masses. LUNGS: CTAB.No wheezes, and no crackles. No accessory muscle use. HEART: Regular rate and rhythm, normal S1 and S2 without murmur, rub or gallop. ABDOMEN: Soft, nontender, not distended, normoactive bowel sounds, no guarding, no rebound, no masses. No hepatomegaly or splenomegaly. MUSCULOSKELETAL: Normal range of motion at all joints. No bony deformities or tenderness. No CVA tenderness. UPPER EXTREMITIES: 2+ pulses, warm, well-perfused. No cyanosis. No clubbing. No peripheral edema. LOWER EXTREMITIES: 2+ pulses, warm, well-perfused. No calf tenderness. No peripheral edema. NEUROLOGICAL: Cranial nerves II-XII intact. Normal speech. gait not observed. PSYCHIATRIC: Cooperative. Good eye contact. Appropriate mood and affect. Laboratory Results - last 24 hr 0804/05/17 04/05/17 10:54 10:54 10:54 WBC 7.7 D RBC 5.27 Hgb 15.4 D Hct 46.8 D MCV 88.9 MCH 29.3 MCHC 33.0 RDW 13.9 Plt Count 265 D MPV 7.1 L Neutrophils % 54.6 Lymphocytes % 33.9 Monocytes % 9.7 Eosinophils % 1.1 Basophils % 0.7 Sodium 132 L Potassium 2.6 L* D Chloride 79 L D Carbon Dioxide 42 H D Anion Gap 11 BUN 24 H D Creatinine 1.9 H D Creat Clearance w eGFR 35.64 Random Glucose 151 H D Lactic Acid 4.7 H* Calcium 10.3 H D Magnesium 2.5 H Total Bilirubin 1.3 H AST 66 H ALT 108 H Alkaline Phosphatase 149 H D Creatine Kinase 402 H Creatine Kinase Index 0.2 CK-MB (CK-2) < 1.000 Troponin I < 0.02 Total Protein 8.2 D Albumin 4.2 D Lipase 125 Urine Color Urine Appearance Urine pH Urine Protein Urine Glucose (UA) Urine Ketones Urine Blood Urine Nitrite Urine Bilirubin Urine Urobilinogen Ur Leukocyte Esterase 04/05/17 04/05/17 04/05/17 11:40 17:30 17:30 WBC RBC Hgb Hct MCV MCH MCHC RDW Plt Count MPV Neutrophils % Lymphocytes % Monocytes % Eosinophils % Basophils % Sodium Potassium Chloride Carbon Dioxide Anion Gap BUN Creatinine Creat Clearance w eGFR Random Glucose Lactic Acid 2.2 H* Calcium Magnesium Cancelled Total Bilirubin AST ALT Alkaline Phosphatase Creatine Kinase Creatine Kinase Index CK-MB (CK-2) Troponin I Total Protein Albumin Lipase Urine Color Yellow Urine Appearance Clear Urine pH 8.0 Urine Protein 1+ H Urine Glucose (UA) Negative Urine Ketones Negative Urine Blood Negative Urine Nitrite Negative Urine Bilirubin Negative Urine Urobilinogen Negative Ur Leukocyte Esterase 1+ H ASSESSMENT/PLAN: 66 yo M with a PMHx of HTN, DM2, HLD who presented with 4 weeks of progressively worsening nausea/vomiting placed on observation for intractable vomiting and ISAAC. Problem List - Problem (1) ISAAC (acute kidney injury) Assessment/Plan: * Most likely 2/2 volume depletion. * Will give IVF @ 125ml/hr * Repeat CMP in AM (2) Hypokalemia Assessment/Plan: * Will replete with IV potassium * repeat CMP in AM (3) Lactic acidosis Assessment/Plan: * Most likely secondary to metformin use. * Will hold metformin for now. * IVF and repeat Lactic acid (4) Vomiting Assessment/Plan: * Given Reglan in ED * No vomiting in ED * May represent Bulimia; Psych consult pending. (5) IDDM (insulin dependent diabetes mellitus) Assessment/Plan: * Metformin held 2/2 lactic acidosis. * BGM Q6h * NPO for now * NISS ACHS (6) HTN (hypertension) Assessment/Plan: * Amlodipine Besylate (Norvasc -) 10 mg PO DAILY * Aspirin (Asa -) 81 mg PO DAILY * Carvedilol (Coreg -) 6.25 mg PO BID. * Enalapril Maleate (Vasotec -) 10 mg PO BID (7) Hyponatremia Assessment/Plan: * Urine sodium and creatinine to determine FeNa * Kidney US pending. Visit type - Emergency Visit Emergency Visit: Yes ED Registration Date: 04/05/17 Care time: The patient presented to the Emergency Department on the above date and was hospitalized for further evaluation of their emergent condition. - New Patient This patient is new to me today: Yes Date on this admission: 04/05/17 - Critical Care Critical Care patient: No
[2017-04-05] MEDS: SODIUM CHLORIDE 0.9%/KCL 1,000 ML IV SCH (20:00)
[2017-04-05] MEDS: CARVEDILOL 6.25 MG TABLET (FP) PO SCH (21:00)
[2017-04-05] MEDS: DORZOLAMIDE 2% HCL OPHTHALMIC SOLUTION 10 ML BOTTLE OU SCH (21:20)
[2017-04-05] MEDS: TIMOLOL 0.5% OPHTHALMIC SOL 5 ML BOTTLE OU SCH (21:21)
[2017-04-05] MEDS: ENALAPRIL MALEATE 10 MG TABLET (FP) PO SCH (21:28)
[2017-04-05] MEDS ORDERED: DOCUSATE SODIUM 100 MG CAPSULE (FP) PO SCH (22:00)
[2017-04-06] MEDS ORDERED: METOCLOPRAMIDE HCL INJECTION 10 MG/2 ML VIAL IVPUSH ONE (02:57)
[2017-04-06] MEDS ORDERED: METOCLOPRAMIDE HCL INJECTION 10 MG/2 ML VIAL IVPB PRN (03:00)
[2017-04-06] MEDS: SODIUM CHLORIDE 0.9%/KCL 1,000 ML IV SCH (05:52)
[2017-04-06 07:43] LABS: BASOPHIL 0.9 % (0-2.0); EOSINOPHIL 5.3 % (0-4.5); MCHC 33.8 g/dl (32.0-35.9); MEAN CELL VOLUME 88.8 fl (80-96); MEAN PLT VOLUME 7.1 fl (7.5-11.1); NEUTROPHILS 52.9 % (42.8-82.8); PLATELET COUNT 208 K/MM3 (134-434); RDW 14.4 % (11.9-15.9); WHITE BLOOD COUNT 7.2 K/mm3 (4.0-10.0)
--- NOTE | 2017-04-06 07:50 | PN ---
Physical Exam: SUBJECTIVE: Patient seen and examined thsi AM. Pt states he did not take any supplements before admission, and states that his "digestive system" is not moving. No abdominal pain. No Cp, no SOB, no fevers, no chills. Pt had an episode of emesis yesterday, non-bloody, non-bilious. Pt is NPO, only ate in the ED. OBJECTIVE: Vital Signs Period Temp Pulse Resp BP Sys/[place] Pulse Ox Last 24 Hr 97.7 F-98.5 F 60-69 18-20 118-137/67-78 96-96 GENERAL: The patient is awake, alert, and fully oriented, in no acute distress. HEENT: PERRLA in R eye, L eye post-surgical changes LUNG: CTABL, no wheezes, no crackles HEART: RRR, S1, S2, no murmurs, no rubs, no gallops ABD: Soft, NT, ND, hypoactive BS EXT: 2+ pulses, warm, well perfused, no edema NEURO: Cranial shasha 2-12 intact, facial symmetry present, sensation was equal and intact in face and body bilaterally, MSK 5+ in all extremities 2+. Laboratory Results - last 24 hr 04/05/17 04/05/17 04/06/17 20:59 21:00 06:28 POC Glucometer 144 108 Serum Osmolality 285 Active Medications Generic Name Dose Route Start Last Admin Trade Name Freq PRN Reason Stop Dose Admin Amlodipine Besylate 10 mg 04/06/17 10:00 Norvasc - PO DAILY SAWYER Aspirin 81 mg 04/06/17 10:00 Asa - PO DAILY SAWYER Carvedilol 6.25 mg 04/05/17 22:00 04/05/17 21:00 Coreg - PO 6.25 mg BID SAWYER Administration Docusate Sodium 300 mg 04/05/17 22:00 04/05/17 21:00 Colace - PO 300 mg HS SAWYER Administration Dorzolamide HCl 1 drop 04/05/17 22:00 04/05/17 21:20 Trusopt 2% OU 1 drop BID SAWYER Administration Enalapril Maleate 10 mg 04/05/17 22:00 04/05/17 21:28 Vasotec - PO 10 mg BID SAWYER Administration Potassium Chloride/Sodium Chloride 1,000 mls @ 100 mls/hr 04/05/17 19:15 05:52 Ns+20 Meq Kcl - IV 100 mls/hr ASDIR SAWYER Administration Metoclopramide HCl 5 mg 04/06/17 03:14 Reglan Injection - IVPB Q6H PRN NAUSEA AND/OR VOMITING Timolol Maleate 1 drop 04/05/17 22:00 04/05/17 21:21 Timoptic 0.5% OU 1 drop BID SAWYER Administration ASSESSMENT/PLAN: 66yo M with PMHx of HTN, DM2, HLD who presented with 4 weeks of progressively worsening nausea + vomiting, placed on obs for ISAAC, lactic acidosis, and electrolyte abnormalities. He was given Reglan in the ED without further episodes of vomiting. # ISAAC (baseline 0.9) - Likely pre-renal, improved with fluids - Continue IVF 100cc/hr w/ 20meq K+ - F/u in AM # Hypokalemia - After multiple runs of potassium IVPB, K+ improving minimally - Consulted Nephrology # Transaminitis - Thought to be hypoperfusion to liver, but rising even w/ fluids - Has hx of transaminitis, U/S prior shows fatty liver, we held statins + rosiglitazone at discharge from last time. - GI consulted # Vomiting - CT scan shows no obstruction, just enlarged pancreas - Patient admitted last admission to intentionally vomiting after meals - Psych consult pending # Lactic Acidosis - Likely secondary to metformin use vs volume depletion - Will hold metformin + continue IVF - Trend lactic acid # Diabetes Mellitus - Hold metformin - BGMs + SSI #Hyponatremia - Likely hypovolemic hyponatremia - Urine lytes pending to determine FeNa - Renal U/S negative #Hx of HTN - Continue Amlodipine 10mg QD - Continue Carvedilol 6.2mg BID - Continue Enalapril 10mg BID # Preventative CAD - Continue ASA 81mg #FEN - Fluids: IVNS 100cc/hr w/ potassium - Electrolytes: Monitor K+ and Na+ - Nutrition: Diabetic diet, assess toleration #Prophylaxis - DVT: SCDs - GI: Not indicated - Deconditioning: PT consulted #Code Status - Full code Visit type - Emergency Visit Emergency Visit: No - New Patient This patient is new to me today: No - Critical Care Critical Care patient: No
[2017-04-06 08:12] LABS: ALBUMIN 3.5 g/dl (3.4-5.0); ANION GAP 7 (8-16); CALCIUM 9.1 mg/dL (8.5-10.1); CO2 42 mmol/L (21-32); GLUCOSE,RANDOM 125 mg/dL (74-106); SGOT/AST 130 U/L (15-37); SGPT/ALT 153 U/L (12-78)
[2017-04-06 08:14] LABS: ALK PHOS 147 U/L (45-117); BILIRUBIN,TOTAL 1.2 mg/dL (0.2-1.0); TOT PROT 6.7 g/dl (6.4-8.2)
[2017-04-06] MEDS: KCL 10 MEQ IVPB 100 ML IVPB SCH ×8 (08:45→23:58)
[2017-04-06] MEDS ORDERED: PT OWN MED DRAWER 7, Y5N ONE ×2 (09:07→20:59)
[2017-04-06] MEDS: amLODIPine BESYLATE 10 MG TABLET (FP) PO SCH (09:12)
[2017-04-06] MEDS: ASPIRIN 81 MG CHEWABLE TABLETS PO SCH (09:12)
[2017-04-06] MEDS: ENALAPRIL MALEATE 10 MG TABLET (FP) PO SCH (09:12)
[2017-04-06] MEDS: CARVEDILOL 6.25 MG TABLET (FP) PO SCH ×2 (09:12→21:02)
[2017-04-06] MEDS: DORZOLAMIDE 2% HCL OPHTHALMIC SOLUTION 10 ML BOTTLE OU SCH ×2 (09:13→21:03)
[2017-04-06] MEDS: TIMOLOL 0.5% OPHTHALMIC SOL 5 ML BOTTLE OU SCH ×2 (09:13→21:03)
--- NOTE | 2017-04-06 09:30 | PN ---
Teaching Attending Note Name of Resident: Ernie Coburn ATTENDING PHYSICIAN STATEMENT I saw and evaluated the patient. I reviewed the resident's note and discussed the case with the resident. I agree with the resident's findings and plan as documented. SUBJECTIVE: Patient continues to have nausea and vomiting. trying to eat his lunch. OBJECTIVE: Vital Signs Temperature 97.8 F 04/06/17 08:17 Pulse Rate 73 04/06/17 08:17 Respiratory Rate 18 04/06/17 08:17 Blood Pressure 119/87 04/06/17 08:17 O2 Sat by Pulse Oximetry (%) 97 04/06/17 08:48 CBCD WBC 7.2 K/mm3 (4.0-10.0) 04/06/17 05:35 RBC 4.64 M/mm3 (4.00-5.60) 04/06/17 05:35 Hgb 13.9 GM/dL (11.7-16.9) 04/06/17 05:35 Hct 41.1 % (35.4-49) 04/06/17 05:35 MCV 88.8 fl (80-96) 04/06/17 05:35 MCHC 33.8 g/dl (32.0-35.9) 04/06/17 05:35 RDW 14.4 % (11.9-15.9) 04/06/17 05:35 Plt Count 208 K/MM3 (134-434) D 04/06/17 05:35 MPV 7.1 fl (7.5-11.1) L 04/06/17 05:35 CMP Sodium 134 mmol/L (136-145) L 04/06/17 05:35 Potassium 2.6 mmol/L (3.5-5.1) L* 04/06/17 05:35 Chloride 85 mmol/L (98-107) L 04/06/17 05:35 Carbon Dioxide 42 mmol/L (21-32) H 04/06/17 05:35 Anion Gap 7 (8-16) L 04/06/17 05:35 BUN 17 mg/dL (7-18) D 04/06/17 05:35 Creatinine 1.0 mg/dL (0.7-1.3) D 04/06/17 05:35 Creat Clearance w eGFR > 60 (>60) 04/06/17 05:35 Random Glucose 125 mg/dL (74-106) H 04/06/17 05:35 Calcium 9.1 mg/dL (8.5-10.1) 04/06/17 05:35 Total Bilirubin 1.2 mg/dL (0.2-1.0) H 04/06/17 05:35 AST 130 U/L (15-37) H D 04/06/17 05:35 ALT 153 U/L (12-78) H D 04/06/17 05:35 Alkaline Phosphatase 147 U/L (45-117) H 04/06/17 05:35 Total Protein 6.7 g/dl (6.4-8.2) 04/06/17 05:35 Albumin 3.5 g/dl (3.4-5.0) 04/06/17 05:35 CARDIAC ENZYMES Creatine Kinase 402 IU/L (39-308) H 04/05/17 10:54 Troponin I < 0.02 ng/ml (0.00-0.05) 04/05/17 10:54 Current Medications Generic Name Dose Route Start Last Admin Trade Name Karthikq PRN Reason Stop Dose Admin Amlodipine Besylate 10 mg 04/06/17 10:00 04/06/17 09:12 Norvasc - PO 10 mg DAILY SAWYER Administration Aspirin 81 mg 04/06/17 10:00 04/06/17 09:12 Asa - PO 81 mg DAILY SAWYER Administration Carvedilol 6.25 mg 04/05/17 22:00 04/06/17 09:12 Coreg - PO 6.25 mg BID SAWYER Administration Docusate Sodium 300 mg 04/05/17 22:00 04/05/17 21:00 Colace - PO 300 mg HS SAWYER Administration Dorzolamide HCl 1 drop 04/05/17 22:00 04/06/17 09:13 Trusopt 2% OU 1 drop BID SAWYER Administration Enalapril Maleate 10 mg 04/05/17 22:00 04/06/17 09:12 Vasotec - PO 10 mg BID SAWYER Administration Potassium Chloride/Sodium Chloride 1,000 mls @ 100 mls/hr 04/05/17 19:15 05:52 Ns+20 Meq Kcl - IV 100 mls/hr ASDIR SAWYER Administration Potassium Chloride 100 mls @ 100 mls/hr 04/06/17 09:00 04/06/17 08:45 Potassium Chloride 10 Meq Premix Ivpb - IVPB 04/06/17 11:59 100 mls/hr Q60M SAWYER Administration Metoclopramide HCl 5 mg 04/06/17 03:14 Reglan Injection - IVPB Q6H PRN NAUSEA AND/OR VOMITING Timolol Maleate 1 drop 04/05/17 22:00 04/06/17 09:13 Timoptic 0.5% OU 1 drop BID SAWYER Administration Home Medications Medication Instructions Recorded Carvedilol 6.25 mg PO BID 12/20/12 Amlodipine Besylate 10 mg PO DAILY 03/24/17 Aspirin [ASA -] 81 mg PO DAILY 03/24/17 Dorzolamide HCl/Timolol Maleat 10 ml OP DAILY 03/24/17 [Cosopt Eye Drops] Enalapril Maleate [Vasotec -] 10 mg PO BID 03/24/17 Insulin NPH Hum/Reg Insulin Hm 20 unit SQ BID 03/24/17 [Humulin 70-30 Vial] Metformin HCl 500 mg PO BID 03/24/17 Docusate Sodium [Colace -] 300 mg PO HS #30 capsule 03/26/17 Clinical history: Rule out obstruction. Comparison: None. Contiguous transaxial images were obtained from the diaphragmatic domes and pubic symphysis after the administration of with oral and without IV contrast. Lung bases: Mild atelectatic changes and small granuloma in the left posterior costophrenic sulcus. Bone: Osteopenia, scoliosis and degenerative changes. Anterior slippage L4 on L5. Liver: Hepatic calcified granuloma. Gallbladder: Possible hyperdense contracted gallbladder. It was seen on prior ultrasound of 2016. Biliary tree: Negative. Spleen: Small splenic calcifications. Small accessory spleen. Pancreas: Enlarged pancreatic head to approximately 4.9 cm in AP dimension x 4.2 cm in width. It is difficult to determine the exact dimensions. Please correlate with additional imaging such as MRI or pancreatic protocol CT. Adrenals: Bilateral hypodense adrenal masses, the right measuring 3.8 x 0.9 cm and the left 4.2 x 1.4 cm. These most likely represent adenomas. Kidneys: Small upper pole medial capsular or subcapsular calcification. Pelvis: Calcification of the vas deferens which is often seen with diabetics. Prostatic enlargement with calcifications. Incompletely distended bladder with prominent bladder wall. Bowel: Negative, including the appendix. No small bowel obstruction or ascites seen.. Other: Prominence of the distal esophageal wall with small hiatal hernia. Small umbilical hernia with fat. Impression: No bowel obstruction seen. Enlarged pancreatic head for which MRI or pancreatic protocol CT scan is needed. Bilateral adrenal adenoma. Hypodense contracted gallbladder. Other findings as above. Clinical correlation advised. US renal: Acute renal insufficiency Renal ultrasound The right kidney measures 10 cm in sagittal length and the left kidney measured 11.7 cm. Both kidneys appear unremarkable. Visualized portion of the liver is slightly hyperechoic. Rule out mild fatty infiltration. Please correlate with liver enzymes. Impression: Both kidneys appear morphologically unremarkable without evidence of hydronephrosis. PE: per resident's note ASSESSMENT AND PLAN: 66 yo M with a PMHx of HTN, DM2, HLD who presented with 4 weeks of progressively worsening nausea/vomiting placed on observation for intractable vomiting and ISAAC. # ISAAC improved due to having dehydration on IVF @ 125ml/hr. Repeat CMP in AM. # Enlarged Pancreatic head on CT scan 4.9cmx 4.2 cm GI consulted. consult for further w/u. # Acute transaminitis CT scan abdomen and pelvis as above. Trend LFTs # T2DM most likely due to a mass on the pancreatic head. Hem/onc consult Ca19.9 , alpha protein, ca125 markers will order # Acute severe Hypokalemia, will replete with IV potassium ,repeat CMP in AM, received 3 riders of IV Potassium , ordered another 3 bags, 40meq po x 1 dose now. Then po 20meq bid. # Acute Lactic acidosis improved. # Intractable Nausea and vomiting will continue IVF, NPO for now, advance diet as tolerated. DVT Px: early ambulation, SCDs
[2017-04-06] MEDS ORDERED: POTASSIUM CHLORIDE TABS 20 MEQ TABLET.ER (FP) PO ONE ×3 (10:00→22:43)
[2017-04-06] MEDS ORDERED: PATIENT'S OWN MEDICATION (NON-FORMULARY) (Dorzolamide Hcl/Timolol Maleat [Cosopt Eye Drops OP SCH (10:00)
[2017-04-06 15:11] LABS: MAGNESIUM 2.4 mg/dL (1.8-2.4)
[2017-04-06] MEDS ORDERED: SODIUM CHLORIDE 0.9%/KCL 1,000 ML IV SCH (15:48)
--- NOTE | 2017-04-06 16:26 | CONSULT ---
Consultation: REQUESTING PROVIDER: CONSULT REQUEST: We have been asked to medically evaluate this patient for ( Nephrology). HISTORY OF PRESENT ILLNESS: 66 yo M with a PMHx of HTN, DM2, HLD who came to ED with a complaint of vomit 4 weeks of progressively worsening nausea/vomiting. He states that he vomits one to two hour after eating. Vomit is yellow color, no blood, contain food particles. He also states some time after eating he feels bloated but denies heart burn. Denies pain in epigastric area. Denies pain after eating. Denies pain in empty stomach. He was admitted approx. 2 weeks ago for same issue and was discharged with instructions to stop supplements he was taking for exercise and constipation. Denies CP, GRIDER, SOB, abdominal pain, palpitations, fevers or chills. states he has also lost weight. But no loss of apatite Never had upper EGD Denies constipation, diarrhoea, blood in stool, blood in urine, burning micturation, change in frequency. social: Former smoker stopped 10-12 year sago, use to smoke 10 to 20 cig. Also use smoke mirijuana but stopped now. No alcohal REVIEW OF SYSTEMS: CONSTITUTIONAL: Absent: fever, chills, diaphoresis, malaise, loss of appetite, weight change HEENT: Absent: rhinorrhea, nasal congestion, throat pain, CARDIOVASCULAR: Absent: chest pain, syncope, palpitations, irregular heart rate, RESPIRATORY: Absent: cough, shortness of breath, dyspnea with exertion, orthopnea, wheezing, stridor, hemoptysis GASTROINTESTINAL: Absent: abdominal pain, abdominal distension, nausea, vomiting, diarrhea, constipation, melena, hematochezia GENITOURINARY: Absent: dysuria, frequency, urgency, hesitancy, hematuria, flank pain, genital pain PHYSICAL EXAMINATION GENERAL: Awake, alert, and fully oriented, in no acute distress. HEAD: Normal with no signs of trauma. EARS, NOSE, THROAT:oropharynx clear without exudates. dry mucous membranes. NECK: Normal range of motion, no JVD, or masses. LUNGS: Breath sounds equal, clear to auscultation bilaterally. No wheezes, and no crackles. No accessory muscle use. HEART: Regular rate normal S1 and S2 without murmur, ABDOMEN: Soft, nontender, not distended, normoactive bowel sounds, no guarding, no rebound, no masses. MUSCULOSKELETAL: Normal range of motion at all joints. No bony deformities or tenderness. No CVA tenderness. UPPER EXTREMITIES: 2+ pulses, warm, well-perfused. No peripheral edema. LOWER EXTREMITIES: warm, well-perfused. No calf tenderness. No peripheral edema. SKIN: Warm, dry, Active Medications Generic Name Dose Route Start Last Admin Trade Name Freq PRN Reason Stop Dose Admin Amlodipine Besylate 10 mg 04/06/17 10:00 04/06/17 09:12 Norvasc - PO 10 mg DAILY SAWYER Administration Aspirin 81 mg 04/06/17 10:00 04/06/17 09:12 Asa - PO 81 mg DAILY SAWYER Administration Carvedilol 6.25 mg 04/05/17 22:00 04/06/17 09:12 Coreg - PO 6.25 mg BID SAWYER Administration Dorzolamide HCl 1 drop 04/05/17 22:00 04/06/17 09:13 Trusopt 2% OU 1 drop BID SAWYER Administration Enalapril Maleate 10 mg 04/05/17 22:00 04/06/17 09:12 Vasotec - PO 10 mg BID SAWYER Administration Potassium Chloride 100 mls @ 100 mls/hr 04/06/17 15:45 04/06/17 16:03 Potassium Chloride 10 Meq Premix Ivpb - IVPB 04/06/17 18:44 100 mls/hr Q60M SAWYER Administration Sodium Chloride 1,000 mls @ 125 mls/hr 04/06/17 16:00 Normal Saline - IV ASDIR SAWYER Metoclopramide HCl 5 mg 04/06/17 03:14 Reglan Injection - IVPB Q6H PRN NAUSEA AND/OR VOMITING Potassium Chloride 20 meq 04/06/17 22:00 K-Dur - PO 04/08/17 21:59 BID SAWYER Timolol Maleate 1 drop 04/05/17 22:00 04/06/17 09:13 Timoptic 0.5% OU 1 drop BID SAWYER Administration ASSESSMENT/PLAN: # ISAAC (baseline 0.9) # Hypokalemia # Transaminitis # Vomiting # Lactic Acidosis # Diabetes Mellitus #Hyponatremia #Hx of HTN Plan: Vomiting could be due to gastroperesis from hypokalemia, DM. Improve Sr k, Keep Sr K between 3.5 to 5 , Patient sr bicarb is 42, could be in metabolic alakalosis from dehydration. Patient clinically appears dehydrated, fluid increaed to 125ml/hr.watch for fluid overload. Monitor and control blood sugar. Monitor sr electrolyte and magnesium. check HbAic Check Urine toxicology: Patient use to smoke marijuana. Monitor intake and out put isaac improved lactic acidosis improved. Dispo: We will continue to follow the patient. Thank you for this consultative opportunity. Visit type - Emergency Visit Emergency Visit: Yes ED Registration Date: 04/06/17 Care time: The patient presented to the Emergency Department on the above date and was hospitalized for further evaluation of their emergent condition. - New Patient This patient is new to me today: Yes Date on this admission: 04/06/17 - Critical Care Critical Care patient: No
[2017-04-06] MEDS: SODIUM CHLORIDE 1,000 ML IV SCH (17:01)
--- NOTE | 2017-04-06 17:26 | CON.PSY ---
Psychiatry Consult Chief Complaint: I am not depressed. I throw up because it comes up. I dont make myself throw up. I did that few times [place] when I was travelling and wanted to eat more. - Previous Psychiatric Treatment Outpatient: None Inpatient: None - Previous Substance Abuse Treatment Outpatient: None Inpatient: None - Current Medications Current Medications: Active Medications Amlodipine Besylate (Norvasc -) 10 mg PO DAILY [facility] Last Admin: 04/06/17 09:12 Dose: 10 mg Aspirin (Asa -) 81 mg PO DAILY [facility] Last Admin: 04/06/17 09:12 Dose: 81 mg Carvedilol (Coreg -) 6.25 mg PO BID [facility] Last Admin: 04/06/17 09:12 Dose: 6.25 mg Docusate Sodium (Colace -) 300 mg PO [facility] Dorzolamide HCl (Trusopt 2%) 1 drop OU BID [facility] Last Admin: 04/06/17 09:13 Dose: 1 drop Enalapril Maleate (Vasotec -) 10 mg PO BID [facility] Last Admin: 04/06/17 09:12 Dose: 10 mg Potassium Chloride (Potassium Chloride 10 Meq Premix Ivpb -) 100 mls @ 100 mls/ hr IVPB Q60M [facility] Stop: 04/06/17 18:44 Last Admin: 04/06/17 16:03 Dose: 100 mls/hr Sodium Chloride (Normal Saline -) 1,000 mls @ 125 mls/hr IV ASDIR [facility] Last Admin: 04/06/17 17:01 Dose: 125 mls/hr Metoclopramide HCl (Reglan Injection -) 5 mg IVPB Q6H PRN PRN Reason: NAUSEA AND/OR VOMITING Potassium Chloride (K-Dur -) 20 meq PO BID [facility] Stop: 04/08/17 21:59 Timolol Maleate (Timoptic 0.5%) 1 drop OU BID [facility] Last Admin: 04/06/17 09:13 Dose: 1 drop - Allergies Allergies: Allergies Allergy/AdvReac Type Severity Reaction Status Date / Time No Known Allergies Allergy Verified 04/05/17 09:45 - Current Living Status Usual Living Arrangement: Alone - Current Mental Status Evaluation Appearance: Well Groomed Attitude: Cooperative - Affect Affect: Full Range Appropriateness: Appropriate to Content - Mood Mood: Euthymic - Speech/Language Expressive: Coherent - Psychomotor Activity Psychomotor Activity: Slowed - Thought Process Thought Process: Intact - Thought Content Hallucinations: Absent Delusions: Absent - Self Perception Self Perception: No Impairment - Cognition Attention: Alert Orientation: Time Memory, Immediate Recall: Intact Memory, Short Term: 3/3 Memory, Remote with Promptin/3 - Concentration Serial Sevens Intact: No Simple Calculations Intact: No - Abstraction Proverb Interpretation: Intact Judgement: Minimally Impaired - Insight Insight: Intact - Impulse Control Impulse Control: Good Control - Suicidal Ideation Suicidal Ideation: No - Homicidal Ideation Homicidal Ideation: No Assessment/Plan 1) Patient does not meet the crieteria for Bulemia or Body Dysmorphic Disorder.
--- NOTE | 2017-04-06 17:55 | PN ---
Teaching Attending Note Name of Resident: Juan Pablo Dang (Nephrology) ATTENDING PHYSICIAN STATEMENT I saw and evaluated the patient. I reviewed the resident's note and discussed the case with the resident. I agree with the resident's findings and plan as documented. Nephrology Consult Pt is a 66 year old male with pmhx of HTN DM and CHol who presents to the ER with vomiting for the last 4 weeks. He also complains of weight loss of about 10 to 15 pounds. He says when he eats he feels pain and discomfort and he has to vomit in order to feel better. He was found to be hypokalemic and we were called to evaluate him. pmhx dm htn chol nkda ros abdominal pain family hx denies social neg Current Medications Generic Name Dose Route Start Last Admin Trade Name Freq PRN Reason Stop Dose Admin Amlodipine Besylate 10 mg 04/06/17 10:00 04/06/17 09:12 Norvasc - PO 10 mg DAILY [facility] Administration Aspirin 81 mg 04/06/17 10:00 04/06/17 09:12 Asa - PO 81 mg DAILY [facility] Administration Carvedilol 6.25 mg 04/05/17 22:00 04/06/17 09:12 Coreg - PO 6.25 mg BID [facility] Administration Docusate Sodium 300 mg 04/06/17 22:00 Colace - PO HS [facility] Dorzolamide HCl 1 drop 04/05/17 22:00 04/06/17 09:13 Trusopt 2% OU 1 drop BID [facility] Administration Enalapril Maleate 10 mg 04/05/17 22:00 04/06/17 09:12 Vasotec - PO 10 mg BID [facility] Administration Potassium Chloride 100 mls @ 100 mls/hr 04/06/17 15:45 04/06/17 17:26 Potassium Chloride 10 Meq Premix Ivpb - IVPB 04/06/17 18:44 100 mls/hr Q60M [facility] Administration Sodium Chloride 1,000 mls @ 125 mls/hr 04/06/17 16:00 04/06/17 17:01 Normal Saline - IV 125 mls/hr ASDIR [facility] Administration Metoclopramide HCl 5 mg 04/06/17 03:14 Reglan Injection - IVPB Q6H PRN NAUSEA AND/OR VOMITING Potassium Chloride 20 meq 04/06/17 22:00 K-Dur - PO 04/08/17 21:59 BID [facility] Timolol Maleate 1 drop 04/05/17 22:00 04/06/17 09:13 Timoptic 0.5% OU 1 drop BID [facility] Administration Last Vital Signs Temp Pulse Resp BP Pulse Ox 98.0 F 70 18 116/57 97 04/06/17 14:40 04/06/17 14:40 04/06/17 08:17 04/06/17 14:40 04/06/17 16:00 Current Active Problems ISAAC (acute kidney injury) (Acute) Elevated liver enzymes (Acute) HTN (hypertension) (Acute) Hypokalemia (Acute) Hyponatremia (Acute) IDDM (insulin dependent diabetes mellitus) (Acute) Lactic acidosis (Acute) Vomiting (Acute) Laboratory Tests 04/05/17 04/05/17 04/06/17 10:54 17:30 05:35 WBC 7.2 Hgb 13.9 Sodium Potassium 2.6 L* D Chloride Carbon Dioxide Anion Gap Urine Color Yellow Urine Appearance Clear Urine pH 8.0 Ur Specific [place] 1.015 Urine Protein 1+ H Urine Glucose (UA) Negative Urine Ketones Negative Urine Blood Negative Urine Nitrite Negative Urine Bilirubin Negative 04/06/17 04/06/17 05:35 14:46 WBC Hgb Sodium 134 L Potassium 2.6 L* 2.8 L* Chloride 85 L Carbon Dioxide 42 H Anion Gap 7 L Urine Color Urine Appearance Urine pH Ur Specific [place] Urine Protein Urine Glucose (UA) Urine Ketones Urine Blood Urine Nitrite Urine Bilirubin Impression 1. dehydration 2. hypokalemia 3. vomiting 4. enlarged pancreatic head 5. adrenal adenoma 6. transaminitis 7. DM 8. hyponatremia 9. HTN Plan - replace potassium, repeat level after the 4 runs are complete - add potassium to fluids - GI evaluation for pancreatic head enlargement - advised pt to eat slowly - will work up adrenal adenomas - cont with fluids, add potassium to fluids - discussed with medical team - pt unlikely has Bulimia Dr Mark
[2017-04-06] MEDS: METOCLOPRAMIDE HCL INJECTION 10 MG/2 ML VIAL IVPB PRN (18:44)
--- NOTE | 2017-04-06 19:45 | CON.GI ---
Consult Consult Specialty:: GASTROENTEROLOGY Reason for Consultation:: VOMITING - History of Present Illness Chief Complaint: VOMITING History of Present Illness: 66 YEAR OLD AFRO GIBRALTARIAN MALE WITH WORSENING VOMITING AFTER EATING FOR LAST 6 MONTHS. THE VOMITING HAS GOTTEN WORSE OVER LAST MONTH. HE NOW VOMITS 3 TIMES A DAY ABOUT 2 HOURS AFTER EATING. HE DOES SEE UNDIGESTED FOOD. IN SEPTEMBER HE WAS ABOUT 300 POUNDS AND ADMISSION WEIGHT IS NOW 230 POUNDS. HE HAS HAD BOWEL MOVEMENTS THIS THESE HAVE DECREASED IN FREQUENCY. HE HAS PROGRESSIVE UPPER ABDOMINAL PAIN AND AFTER VOMITING HE FEELS BETTER. HE IS A DIABETIC AND HIS SUGARS AT HOME RANGE FROM 150 TO 120'S. HE DENIES FEVER, HEMATEMESIS, RECTAL BLEEDING OR MELENA. HIS COLONOSCOPY WAS A FEW YEARS AGO AND HE STATES WAS NORMAL. HE NEVER HAD EGD. HE WAS ADMITTED LAST MONTH FOR SAME AND WORKUP WAS NEGATIVE. ON ADMISSION HE WAS FOUNDN TO HAVE ELECTROLYTE DEPLETION OF SODIUM AND POTASSIUM. CT SCAN SHOWED A ENLARGED HEAD OF PANCREAS AND DILATED STOMACH. - History Source History Provided By: Patient Limitations to Obtaining History: No Limitations - Past Medical History [place]: No: Alzheimer's, CVA, Dementia, Migraine, Multiple Sclerosis, Peripheral Neuropathy, Parkinson's, Seizure, Syncope, TIA, Vertigo, Other Cardio/Vascular: Yes: HTN, Hyperlipdemia Pulmonary: No: Asthma, Bronchitis, Cancer, COPD, O2 Dependent, Pneumonia, Previously Intubated, Pulmonary Embolus, Pulmonary Fibrosis, Sleep Apnea, Other Gastrointestinal: No: Ascites, Cancer, Constipation, Crohn's Disease, Diverticulitis, Diverticulosis, Esophageal Varices, Gastritis, GERD, GI Bleed, Hemorrhoids, Hiatal Hernia, Inflamatory Bowel Disease, Irritable Bowel Disease, Pancreatitis, Peptic Ulcer Disease, Ulcerative Colitis, Other Hepatobiliary: No: Cirrhosis, Cholelithiasis, Cholecystitis, Choledocholithiasis , Hepatitis A, Hepatitis B, Hepatitis C, Other Renal/: No: Renal Failure, Renal Inusuff, BPH, Cancer, Hematuria, Hemodialysis , Neurogenic Bladder, Renal Calculi, UTI, Other Heme/Onc: No: Anemia, B12 Deficiency, Bleeding Disorder, Cancer, Current Chemotherapy, Current Radiation Therapy, Hemochromatosis, Hypercoaguable State, Myeloproliferative Synd, Sickle Cell Disease, Sickle Cell Trait, Thrombocytopenia, Other Psych: No: Addictions, Anxiety, Bipolar, Depression, Panic, Psychosis, Schizophrenia, Other Musculoskeletal: No: Bursitis, Chronic low back pain, Hemiparesis, Hemiplegia, Osteoarthritis, Paraplegia, Other Rheumatology: No: Fibromyalgia, Gout, Lupus, Rheumatoid Arthritis, Sarcoidosis, Vasculitis, Other ENT: No: Allergic Rhinitis, Sinusitis, Other Endocrine: Yes: Diabetes Mellitus (on insulin) - Past Surgical History Past Surgical History: No: None, AAA Repair, AICD, Amputation, Appendectomy, Arthrosocopy, AV Fistula/Graft, Bariatric Surgery, Breast Biopsy, Bypass, CABG, Carotid Endarterectomy, Cataract Removal, Cholecystectomy, Colectomy, Colonoscopy, Colostomy, Craniotomy, , Cystectomy, Hernia Repair, Hysterectomy, Ileal Conduit, Ileosotomy, Joint Replacement, Kidney Transplant, Laminectomy, Liver Transplant, Mastectomy, Nephrectomy, Oopherectomy, Orchiectomy, Permanent Pacemaker, Prostatectomy, Splenectomy, Stent, Thoracotomy , TURP, Tonsillectomy, Tubal Ligation, Upper Endoscopy, Valve Replacement, Vasectomy, Vein Stripping/Ligation - Alcohol/Substance Use Hx Alcohol Use: No - Smoking History Smoking history: Never smoked Have you smoked in the past 12 months: No Aproximately how many cigarettes per day: 0 - Social History Usual Living Arrangement: Alone Home Medications - Allergies Allergies/Adverse Reactions: Allergies Allergy/AdvReac Type Severity Reaction Status Date / Time No Known Allergies Allergy Verified 04/05/17 09:45 - Home Medications Home Medications: Ambulatory Orders Carvedilol 6.25 mg PO BID 12/20/12 Amlodipine Besylate 10 mg PO DAILY 03/24/17 Aspirin [ASA -] 81 mg PO DAILY 03/24/17 Dorzolamide HCl/Timolol Maleat [Cosopt Eye Drops] 10 ml OP DAILY 03/24/17 Enalapril Maleate [Vasotec -] 10 mg PO BID 03/24/17 Insulin NPH Hum/Reg Insulin Hm [Humulin 70-30 Vial] 20 unit SQ BID 03/24/17 Metformin HCl 500 mg PO BID 03/24/17 Docusate Sodium [Colace -] 300 mg PO HS #30 capsule 03/26/17 Family Disease History - Family Disease History Family History: Unremarkable Review of Systems - Review of Systems Constitutional: reports: Loss of Appetite, Unintentional Wgt. Loss, Weakness Eyes: reports: Other (LEFT EYE PARTIAL VISION SECONDARY TO GLAUCOMA) HENT: reports: No Symptoms Neck: reports: No Symptoms Cardiovascular: reports: No Symptoms Respiratory: reports: No Symptoms Gastrointestinal: reports: Abdominal Pain, Nausea, Vomiting Genitourinary: reports: No Symptoms Musculoskeletal: reports: No Symptoms Integumentary: reports: No Symptoms Neurological: reports: No Symptoms Endocrine: reports: No Symptoms Hematology/Lymphatic: reports: No Symptoms Psychiatric: reports: No Symptoms Physical Exam-GI Vital Signs: Vital Signs Temperature 98.0 F 04/06/17 14:40 Pulse Rate 70 04/06/17 14:40 Respiratory Rate 18 04/06/17 08:17 Blood Pressure 116/57 04/06/17 14:40 O2 Sat by Pulse Oximetry (%) 97 04/06/17 16:00 Constitutional: Yes: Calm Eyes: Yes: Conjunctiva Clear HENT: Yes: Normocephalic Neck: Yes: Supple Cardiovascular: Yes: Regular Rate and Rhythm Respiratory: Yes: Regular Gastrointestinal Inspection: Yes: WNL ...Auscultate: Yes: Normoactive Bowel Sounds ...Palpate: Yes: Soft, Other (NO MASS PALPATED) Musculoskeletal: Yes: WNL Extremities: Yes: WNL Neurological: Yes: WNL, Alert, Oriented Labs: Laboratory Tests 04/05/17 04/05/17 04/05/17 10:54 10:54 10:54 WBC 7.7 D RBC 5.27 Hgb 15.4 D Hct 46.8 D MCV 88.9 MCH 29.3 MCHC 33.0 RDW 13.9 Plt Count 265 D MPV 7.1 L Neutrophils % 54.6 Lymphocytes % Monocytes % Eosinophils % 1.1 Basophils % 0.7 Sodium 132 L Potassium 2.6 L* D Chloride 79 L D Carbon Dioxide 42 H D Anion Gap 11 BUN 24 H D Creatinine 1.9 H D Creat Clearance w eGFR 35.64 Random Glucose 151 H D Lactic Acid 4.7 H* Calcium 10.3 H D Magnesium 2.5 H Total Bilirubin 1.3 H AST 66 H ALT 108 H Alkaline Phosphatase 149 H D 04/05/17 04/06/17 04/06/17 17:30 05:35 05:35 WBC 7.2 RBC 4.64 Hgb 13.9 Hct 41.1 MCV 88.8 MCH 30.0 MCHC 33.8 RDW 14.4 Plt Count 208 D MPV 7.1 L Neutrophils % 52.9 Lymphocytes % 32.5 Monocytes % 8.4 Eosinophils % 5.3 H D Basophils % 0.9 Sodium 134 L Potassium 2.6 L* Chloride 85 L Carbon Dioxide 42 H Anion Gap 7 L BUN 17 D Creatinine 1.0 D Creat Clearance w eGFR > 60 Random Glucose 125 H Lactic Acid 2.2 H* Calcium 9.1 Magnesium Total Bilirubin 1.2 H AST 130 H D ALT 153 H D Alkaline Phosphatase 147 H Imaging - Results Cat Scan: Image Reviewed Problem List - Problems (1) Pancreatic enlargement Assessment/Plan: I HAVE REVIEWED CT SCAN AND IT APPEARS THAT THE HEAD OF THE PANCREAS MAY BE CAUSING A PARTIAL OBSTRUCTION. WITH THE CT SCAN FINDING, PROGRESSIVE VOMITING AND UNINTENTIONAL WEIGHT LOSS OF 70 POUNDS IN 6 MONTHS ONE MUST RULE OUT PANCREATIC MALIGNANCY. THIS IS NOT BULEMIA I WILL CHANGE HIS DIET TO FULL LIQUIDS. HE VOMITED DINNER TONIGHT. CA19-9 WAS SENT. HE NEEDS A CONTRAST MRI/AND MRCP OR CONTRAST CT WITH PANCREATIC PROTOCOL. IF THESE ARE NOT DIAGNOSTIC HE WILL NEED AN EUS (WOULD NEED TRANSFER TO [facility]) Code(s): K86.9 - DISEASE OF PANCREAS, UNSPECIFIED (2) Vomiting Code(s): R11.10 - VOMITING, UNSPECIFIED Qualifiers: Vomiting type: unspecified Vomiting Intractability: unspecified Nausea presence: without nausea Qualified Code(s): R11.11 - Vomiting without nausea (3) Elevated liver enzymes Code(s): R74.8 - ABNORMAL LEVELS OF OTHER SERUM ENZYMES
[2017-04-06 20:10] LABS: URINE MARIJUANA THC NEGATIVE ng/ml (CUTOFF=50)
[2017-04-06] MEDS: DOCUSATE SODIUM 100 MG CAPSULE (FP) PO SCH (21:02)
[2017-04-06] MEDS: POTASSIUM CHLORIDE TABS 20 MEQ TABLET.ER (FP) PO SCH (21:03)
[2017-04-06] MEDS ORDERED: DOCUSATE SODIUM 100 MG CAPSULE (FP) PO SCH (22:00)
[2017-04-06 22:29] LABS: ANION GAP 7 (8-16); CALCIUM 8.9 mg/dL (8.5-10.1); CO2 42 mmol/L (21-32); GLUCOSE,RANDOM 117 mg/dL (74-106)
[2017-04-06] MEDS ORDERED: POTASSIUM CHLORIDE 20 MEQ PREMIX IVPB 100 ML IVPB ONE (22:44)
[2017-04-07] MEDS: SODIUM CHLORIDE 1,000 ML IV SCH ×3 (01:03→17:17)
[2017-04-07 08:46] LABS: ALBUMIN 3.6 g/dl (3.4-5.0); ANION GAP 11 (8-16); BILIRUBIN,TOTAL 1.4 mg/dL (0.2-1.0); CALCIUM 8.7 mg/dL (8.5-10.1); CO2 36 mmol/L (21-32); CREATININE 0.9 mg/dL (0.7-1.3); GLUCOSE,RANDOM 118 mg/dL (74-106); MAGNESIUM 2.4 mg/dL (1.8-2.4); PHOSPHOROUS 2.9 mg/dL (2.5-4.9); SGOT/AST 252 U/L (15-37); SGPT/ALT 278 U/L (12-78); TOT PROT 6.9 g/dl (6.4-8.2)
[2017-04-07 08:47] LABS: ALK PHOS 192 U/L (45-117)
--- NOTE | 2017-04-07 08:54 | PN ---
Physical Exam: SUBJECTIVE: Patient seen and examined this AM. Pt did not keep solid food down yesterday, undigested food was vomitted, 6 bags at night, 1 this AM. Normal vitals after the emesis. No abdominal pain, no CP, no SOB, no fevers, no chills. Called Radiology - MRI scheduled for tonight OBJECTIVE: Vital Signs Period Temp Pulse Resp BP Sys/[place] Pulse Ox Last 24 Hr 98.3 F-98.3 F 56-65 18-20 119-150/58-77 97 GENERAL: The patient is awake, alert, and fully oriented, in no acute distress. HEENT: PERRLA in R eye, L eye post-surgical changes LUNG: CTABL, no wheezes, no crackles HEART: RRR, S1, S2, no murmurs, no rubs, no gallops ABD: Soft, NT, ND, hypoactive BS EXT: 2+ pulses, warm, well perfused, no edema NEURO: Cranial shasha 2-12 intact, facial symmetry present, sensation was equal and intact in face and body bilaterally, MSK 5+ in all extremities 2+. Laboratory Results - last 24 hr 04/06/17 04/06/17 04/06/17 16:59 19:43 19:43 Sodium Potassium Chloride Carbon Dioxide Anion Gap BUN Creatinine POC Glucometer 133 Random Glucose Calcium Ur Random Sodium 112 Ur Random Potassium 46.9 Ur Random Chloride 19 Opiates Screen Negative Methadone Screen Negative Barbiturate Screen Negative Phencyclidine Screen Negative Ur Amphetamines Screen Negative MDMA (Ecstasy) Screen Negative Benzodiazepines Screen Negative Cocaine Screen Negative U Marijuana (THC) Screen Negative 04/06/17 04/06/17 04/07/17 21:11 21:45 06:12 Sodium 136 Potassium 2.8 L* Chloride 87 L Carbon Dioxide 42 H Anion Gap 7 L BUN 18 Creatinine 1.0 POC Glucometer 120 110 Random Glucose 117 H Calcium 8.9 Ur Random Sodium Ur Random Potassium Ur Random Chloride Opiates Screen Methadone Screen Barbiturate Screen Phencyclidine Screen Ur Amphetamines Screen MDMA (Ecstasy) Screen Benzodiazepines Screen Cocaine Screen U Marijuana (THC) Screen Active Medications Generic Name Dose Route Start Last Admin Trade Name Freq PRN Reason Stop Dose Admin Amlodipine Besylate 10 mg 04/06/17 10:00 04/06/17 09:12 Norvasc - PO 10 mg DAILY [facility] Administration Aspirin 81 mg 08/03/17 10:00 04/06/17 09:12 Asa - PO 81 mg DAILY [facility] Administration Carvedilol 6.25 mg 04/05/17 22:00 04/06/17 21:02 Coreg - PO 6.25 mg BID [facility] Administration Docusate Sodium 300 mg 04/06/17 22:00 04/06/17 21:02 Colace - PO 300 mg HS [facility] Administration Dorzolamide HCl 1 drop 04/05/17 22:00 04/06/17 21:03 Trusopt 2% OU 1 drop BID [facility] Administration Enalapril Maleate 10 mg 04/05/17 22:00 04/06/17 09:12 Vasotec - PO 10 mg BID [facility] Administration Sodium Chloride 1,000 mls @ 125 mls/hr 04/06/17 16:00 04/07/17 08:43 Normal Saline - IV 125 mls/hr ASDIR [facility] Administration Metoclopramide HCl 5 mg 04/06/17 03:14 04/06/17 18:44 Reglan Injection - IVPB 5 mg Q6H PRN Administration NAUSEA AND/OR VOMITING Potassium Chloride 20 meq 04/06/17 22:00 04/06/17 21:03 K-Dur - PO 04/08/17 21:59 20 meq BID [facility] Administration Timolol Maleate 1 drop 04/05/17 22:00 04/06/17 21:03 Timoptic 0.5% OU 1 drop BID [facility] Administration ASSESSMENT/PLAN: 66yo M with PMHx of HTN, DM2, HLD who presented with 4 weeks of progressively worsening nausea + vomiting, placed on obs for ISAAC, lactic acidosis, and electrolyte abnormalities. He was given Reglan in the ED without further episodes of vomiting. # Vomiting - Likely from pancreatic head compression of distal stomach/duodenum - Less likely gastroparesis from hypokalemia or DM2 - Resulted in loss of 70 lbs in 8 month - No concern for bulimia - Neg Utox - Continue IVF 125cc/hr NS # Enlarged Pancreatic head - CT shows enlarged pancreatic head and distended stomach - F/u MRI w/ contrast and MRCP with pancreatic protocol, if nondiagnostic pt needs EUS at tertiary care center - F/u CA 19-9, CA 125 tumor markers to r/o malignancy - F/u CT chest as per Oncology # Hypokalemia - After multiple runs of potassium IVPB, K+ improving to 3.2, gave 40meq K+ liquid PO this afternoon - CT shows bilateral adrenal adenomas, in setting of HTN and hypoK+, could represent functional adenoma - F/u Serum aldosterone, serum renin, if ratio >20 consider primary hyperaldo - F/u AM cortisol - F/u TSH, T3, T4 - Nephrology on the case # Transaminitis - Thought to be hypoperfusion to liver, but rising even w/ fluids - Possibly due to pancreatic compression of bile ducts - F/u MRI # ISAAC (0.9 baseline) - resolved - Improved with fluids # Lactic Acidosis - resolved - Likely secondary to metformin use vs volume depletion - Held metformin + continue IVF # Diabetes Mellitus (A1C 6.7) - Hold metformin - BGMs + SSI #Hyponatremia - resolved - Likely hypovolemic hyponatremia, resolved w/ fluids - Renal U/S negative #Hx of HTN - Continue Amlodipine 10mg QD - Continue Carvedilol 6.2mg BID - Continue Enalapril 10mg BID # Preventative CAD - Continue ASA 81mg #FEN - Fluids: IVNS 125 cc/hr - Electrolytes: Monitor K+ and Na+ - Nutrition: Diabetic clear diet #Prophylaxis - DVT: SCDs - GI: Not indicated - Deconditioning: PT consulted #Code Status - Full code # Disposition - Await MRI/MRCP, adrenal endocrine w/u, pancreatic tumor marker w/u Visit type - Emergency Visit Emergency Visit: No - New Patient This patient is new to me today: No - Critical Care Critical Care patient: No
[2017-04-07] MEDS ORDERED: PT OWN MED DRAWER 7, Y5N ONE ×2 (09:44→21:18)
[2017-04-07] MEDS: POTASSIUM CHLORIDE TABS 20 MEQ TABLET.ER (FP) PO SCH ×2 (09:47→21:20)
[2017-04-07] MEDS: amLODIPine BESYLATE 10 MG TABLET (FP) PO SCH (09:47)
[2017-04-07] MEDS: DORZOLAMIDE 2% HCL OPHTHALMIC SOLUTION 10 ML BOTTLE OU SCH ×2 (09:47→21:19)
[2017-04-07] MEDS: CARVEDILOL 6.25 MG TABLET (FP) PO SCH ×2 (09:47→21:20)
[2017-04-07] MEDS: KCL 10 MEQ IVPB 100 ML IVPB SCH ×6 (09:47→21:20)
[2017-04-07] MEDS: ASPIRIN 81 MG CHEWABLE TABLETS PO SCH (09:47)
[2017-04-07] MEDS: TIMOLOL 0.5% OPHTHALMIC SOL 5 ML BOTTLE OU SCH ×2 (09:48→21:19)
--- NOTE | 2017-04-07 11:09 | PN ---
GI Progress Note Subjective: GASTROENTEROLOGY AWAITING MRI, NO VOMITING ON FULL LIQUID DIET LABS ABOUT SAME NO PAIN POTASSIUM IMPROVING - Objective Vital Signs: Vital Signs Temperature 98.3 F 04/07/17 07:54 Pulse Rate 58 L 04/07/17 07:54 Respiratory Rate 18 04/07/17 07:54 Blood Pressure 121/69 04/07/17 07:54 O2 Sat by Pulse Oximetry (%) 97 04/07/17 08:00 Constitutional: Obese Eyes: Yes: Conjunctiva Clear HENT: Yes: Normocephalic Neck: Yes: Supple Cardiovascular: Yes: Regular Rate and Rhythm Respiratory: Yes: Regular Gastrointestinal Inspection: Yes: WNL ...Auscultate: Yes: Normoactive Bowel Sounds ...Palpate: Yes: Soft Extremities: Yes: WNL Neurological: Yes: Alert, Oriented Labs: CBC, BMP 04/07/17 05:35 - ....Imaging Ultrasound: Image Reviewed Problem List - Problems (1) Pancreatic enlargement Assessment/Plan: AWAIT MRI/MRCP TO SEE IF PANCREATIC HEAD ENLARGEMENT RELATED TO NEOPLASM AND TO EVLAUTE THE LIVER PARENCHYMA AND BILE DUCTS IF THERE IS A MASS AND CA19-9 ELEVATED SUGGEST SURGICAL AND ONCOLOGICAL REFERRAL Code(s): K86.9 - DISEASE OF PANCREAS, UNSPECIFIED (2) Vomiting Code(s): R11.10 - VOMITING, UNSPECIFIED Qualifiers: Vomiting type: unspecified Vomiting Intractability: unspecified Nausea presence: without nausea Qualified Code(s): R11.11 - Vomiting without nausea (3) Elevated liver enzymes Code(s): R74.8 - ABNORMAL LEVELS OF OTHER SERUM ENZYMES
[2017-04-07] MEDS: METOCLOPRAMIDE HCL INJECTION 10 MG/2 ML VIAL IVPB PRN ×2 (12:24→18:08)
--- NOTE | 2017-04-07 13:42 | PN ---
Physical Exam: SUBJECTIVE: Patient seen and examined. sitting comfartably in bed. Had one episode of vomiting after having breakfast, Was large in quantity, filled 3 bags, contain food particles. no blood. K went upto 3.0. OBJECTIVE: Vital Signs Period Temp Pulse Resp BP Sys/[place] Pulse Ox Last 24 Hr 98.3 F-98.3 F 56-65 18-20 119-150/58-77 97 GENERAL: Awake, alert, and fully oriented, in no acute distress. HEAD: Normal with no signs of trauma. EARS, NOSE, THROAT:oropharynx clear without exudates. NECK: Normal range of motion, no JVD, or masses. LUNGS: Breath sounds equal, clear to auscultation bilaterally. No wheezes, and no crackles. No accessory muscle use. HEART: Regular rate normal S1 and S2 without murmur, ABDOMEN: Soft, nontender, not distended, normoactive bowel sounds, no guarding, no rebound, UPPER EXTREMITIES: 2+ pulses, warm, well-perfused. No peripheral edema. LOWER EXTREMITIES: warm, well-perfused. No calf tenderness. No peripheral edema. SKIN: Warm, dry, Laboratory Results - last 24 hr 04/06/17 04/06/17 04/06/17 16:59 19:43 19:43 Sodium Potassium Chloride Carbon Dioxide Anion Gap BUN Creatinine Creat Clearance w eGFR POC Glucometer 133 Random Glucose Hemoglobin A1c % Calcium Phosphorus Magnesium Total Bilirubin AST ALT Alkaline Phosphatase Total Protein Albumin Ur Random Sodium 112 Ur Random Potassium 46.9 Ur Random Chloride 19 Opiates Screen Negative Methadone Screen Negative Barbiturate Screen Negative Phencyclidine Screen Negative Ur Amphetamines Screen Negative MDMA (Ecstasy) Screen Negative Benzodiazepines Screen Negative Cocaine Screen Negative U Marijuana (THC) Screen Negative 04/06/17 04/06/17 04/07/17 21:11 21:45 05:35 Sodium 136 137 Potassium 2.8 L* 3.0 L Chloride 87 L 90 L Carbon Dioxide 42 H 36 H Anion Gap 7 L 11 BUN 18 15 Creatinine 1.0 0.9 Creat Clearance w eGFR > 60 POC Glucometer 120 Random Glucose 117 H 118 H Hemoglobin A1c % Calcium 8.9 8.7 Phosphorus 2.9 Magnesium 2.4 Total Bilirubin 1.4 H AST 252 H D ALT 278 H D Alkaline Phosphatase 192 H D Total Protein 6.9 Albumin 3.6 Ur Random Sodium Ur Random Potassium Ur Random Chloride Opiates Screen Methadone Screen Barbiturate Screen Phencyclidine Screen Ur Amphetamines Screen MDMA (Ecstasy) Screen Benzodiazepines Screen Cocaine Screen U Marijuana (THC) Screen 04/07/17 04/07/17 04/07/17 05:35 06:12 11:12 Sodium Potassium Chloride Carbon Dioxide Anion Gap BUN Creatinine Creat Clearance w eGFR POC Glucometer 110 132 Random Glucose Hemoglobin A1c % 6.7 H Calcium Phosphorus Magnesium Total Bilirubin AST ALT Alkaline Phosphatase Total Protein Albumin Ur Random Sodium Ur Random Potassium Ur Random Chloride Opiates Screen Methadone Screen Barbiturate Screen Phencyclidine Screen Ur Amphetamines Screen MDMA (Ecstasy) Screen Benzodiazepines Screen Cocaine Screen U Marijuana (THC) Screen Active Medications Generic Name Dose Route Start Last Admin Trade Name Freq PRN Reason Stop Dose Admin Amlodipine Besylate 10 mg 04/06/17 10:00 04/07/17 09:47 Norvasc - PO 10 mg DAILY SAWYER Administration Aspirin 81 mg 04/06/17 10:00 04/07/17 09:47 Asa - PO 81 mg DAILY SAWYER Administration Carvedilol 6.25 mg 04/05/17 22:00 04/07/17 09:47 Coreg - PO 6.25 mg BID SAWYER Administration Docusate Sodium 300 mg 04/06/17 22:00 04/06/17 21:02 Colace - PO 300 mg HS SAWYER Administration Dorzolamide HCl 1 drop 04/05/17 22:00 04/07/17 09:47 Trusopt 2% OU 1 drop BID SAWYER Administration Enalapril Maleate 10 mg 04/05/17 22:00 04/06/17 09:12 Vasotec - PO 10 mg BID SAWYER Administration Sodium Chloride 1,000 mls @ 125 mls/hr 04/06/17 16:00 04/07/17 08:43 Normal Saline - IV 125 mls/hr ASDIR SAWYER Administration Metoclopramide HCl 5 mg 04/06/17 03:14 04/07/17 12:24 Reglan Injection - IVPB 5 mg Q6H PRN Administration NAUSEA AND/OR VOMITING Potassium Chloride 20 meq 04/06/17 22:00 04/07/17 09:47 K-Dur - PO 04/08/17 21:59 20 meq BID SAWYER Administration Timolol Maleate 1 drop 04/05/17 22:00 04/07/17 09:48 Timoptic 0.5% OU 1 drop BID SAWYER Administration Laboratory Tests 04/06/17 04/06/17 06:00 19:43 Ur Random Sodium 112 Ur Random Potassium 46.9 Ur Random Chloride 19 Urine Creatinine 160.0 ASSESSMENT/PLAN: 1. Dehydration 2. hypokalemia 3. vomiting 4. enlarged pancreatic head 5. adrenal adenoma 6. transaminitis 7. DM 8. hyponatremia 9. HTN Plan - Replace potassium, Try to keep between 3.5 to 5. - Monitor Sr. Potassium. - Patient is on full liquid diet. - Gastro consult appreciated. - Work up for adrenal adenoma pending. - Continue Iv fluid _ Serum sodium improved. and bicarb decreased to 36. - Tumor markers pending Visit type - Emergency Visit Emergency Visit: Yes ED Registration Date: 04/06/17 Care time: The patient presented to the Emergency Department on the above date and was hospitalized for further evaluation of their emergent condition. - New Patient This patient is new to me today: No - Critical Care Critical Care patient: No
--- NOTE | 2017-04-07 15:16 | CONSULT ---
Consult Consult Specialty:: Oncology Reason for Consultation:: Pancreatic mass - History of Present Illness History of Present Illness: is a 66 year old AA male with HTN, DM2, HLD who comes to the ER with episodes of intractable vomiting. He was recently discharged with the same complains. This time he underwent a Ct a/p which shows a pancreatic mass. He could not keep solid food and felt that it was "stuck" in the abdomen. States he has also lost weight. But no loss of apatite .Denies constipation, diarrhoea , blood in stool, blood in urine, burning micturation, change in frequency. Ex smoker Denies any family Hx of cancer. 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: Alzheimer's, CVA, Dementia, Migraine, Multiple Sclerosis, Peripheral Neuropathy, Parkinson's, Seizure, Syncope, TIA, Vertigo, Other Cardio/Vascular: Yes: HTN, Hyperlipdemia Pulmonary: No: Asthma, Bronchitis, Cancer, COPD, O2 Dependent, Pneumonia, Previously Intubated, Pulmonary Embolus, Pulmonary Fibrosis, Sleep Apnea, Other Gastrointestinal: No: Ascites, Cancer, Constipation, Crohn's Disease, Diverticulitis, Diverticulosis, Esophageal Varices, Gastritis, GERD, GI Bleed, Hemorrhoids, Hiatal Hernia, Inflamatory Bowel Disease, Irritable Bowel Disease, Pancreatitis, Peptic Ulcer Disease, Ulcerative Colitis, Other Hepatobiliary: No: Cirrhosis, Cholelithiasis, Cholecystitis, Choledocholithiasis , Hepatitis A, Hepatitis B, Hepatitis C, Other Renal/: No: Renal Failure, Renal Inusuff, BPH, Cancer, Hematuria, Hemodialysis , Neurogenic Bladder, Renal Calculi, UTI, Other Psych: No: Addictions, Anxiety, Bipolar, Depression, Panic, Psychosis, Schizophrenia, Other Musculoskeletal: No: Bursitis, Chronic low back pain, Hemiparesis, Hemiplegia, Osteoarthritis, Paraplegia, Other Rheumatology: No: Fibromyalgia, Gout, Lupus, Rheumatoid Arthritis, Sarcoidosis, Vasculitis, Other ENT: No: Allergic Rhinitis, Sinusitis, Other Endocrine: Yes: Diabetes Mellitus (on insulin) - Past Surgical History Past Surgical History: No: None, AAA Repair, AICD, Amputation, Appendectomy, Arthrosocopy, AV Fistula/Graft, Bariatric Surgery, Breast Biopsy, Bypass, CABG, Carotid Endarterectomy, Cataract Removal, Cholecystectomy, Colectomy, Colonoscopy, Colostomy, Craniotomy, , Cystectomy, Hernia Repair, Hysterectomy, Ileal Conduit, Ileosotomy, Joint Replacement, Kidney Transplant, Laminectomy, Liver Transplant, Mastectomy, Nephrectomy, Oopherectomy, Orchiectomy, Permanent Pacemaker, Prostatectomy, Splenectomy, Stent, Thoracotomy , TURP, Tonsillectomy, Tubal Ligation, Upper Endoscopy, Valve Replacement, Vasectomy, Vein Stripping/Ligation - Alcohol/Substance Use Hx Alcohol Use: No - Smoking History Smoking history: Never smoked Have you smoked in the past 12 months: No Aproximately how many cigarettes per day: 0 - Social History Usual Living Arrangement: Alone Home Medications - Allergies Allergies/Adverse Reactions: Allergies Allergy/AdvReac Type Severity Reaction Status Date / Time No Known Allergies Allergy Verified 04/05/17 09:45 - Home Medications Home Medications: Ambulatory Orders Carvedilol 6.25 mg PO BID 12/20/12 Amlodipine Besylate 10 mg PO DAILY 03/24/17 Aspirin [ASA -] 81 mg PO DAILY 03/24/17 Dorzolamide HCl/Timolol Maleat [Cosopt Eye Drops] 10 ml OP DAILY 03/24/17 Enalapril Maleate [Vasotec -] 10 mg PO BID 03/24/17 Insulin NPH Hum/Reg Insulin Hm [Humulin 70-30 Vial] 20 unit SQ BID 03/24/17 Metformin HCl 500 mg PO BID 03/24/17 Docusate Sodium [Colace -] 300 mg PO HS #30 capsule 03/26/17 Family Disease History - Family Disease History Family History: Denies (as per him no family hx of cancer) Review of Systems - Review of Systems Constitutional: reports: Unintentional Wgt. Loss, Weakness Eyes: reports: No Symptoms HENT: reports: Throat Pain Neck: denies: Lumps Cardiovascular: denies: Chest Pain, Edema, Palpitations, Shortness of Breath Respiratory: denies: Cough, Exercise Intolerance, Hemoptysis Gastrointestinal: reports: Bloating, Indigestion, Vomiting. denies: Dysphagia, Vomiting Blood Musculoskeletal: denies: Back Pain, Decreased ROM Integumentary: denies: Bruising Hematology/Lymphatic: denies: Easily Bruised, Swollen Glands Physical Exam Vital Signs: Vital Signs Temperature 98.3 F 04/07/17 07:54 Pulse Rate 65 04/07/17 12:32 Respiratory Rate 18 04/07/17 12:32 Blood Pressure 134/68 04/07/17 12:32 O2 Sat by Pulse Oximetry (%) 97 04/07/17 08:00 Constitutional: Yes: No Distress, Anxious Eyes: Yes: Conjunctiva Clear HENT: Yes: Atraumatic, Normocephalic Neck: Yes: Supple, Trachea Midline, Other (no supraclavicular LAD noted). No: Lymphadenopathy Cardiovascular: Yes: Regular Rate and Rhythm Respiratory: Yes: Regular, CTA Bilaterally Gastrointestinal: Yes: Normal Bowel Sounds, Soft, Abdomen, Obese, Other (could not appreciate any umbilical nodules) Edema: No Psychiatric: Yes: Alert, Oriented Labs: CBC, BMP 04/07/17 14:00 Imaging - Results Cat Scan: Report Reviewed, Image Reviewed Ultrasound: Report Reviewed Problem List - Problems (1) Pancreatic enlargement Code(s): K86.9 - DISEASE OF PANCREAS, UNSPECIFIED (2) Elevated liver enzymes Code(s): R74.8 - ABNORMAL LEVELS OF OTHER SERUM ENZYMES (3) Hypokalemia Code(s): E87.6 - HYPOKALEMIA (4) Adrenal adenoma Code(s): D35.00 - BENIGN NEOPLASM OF UNSPECIFIED ADRENAL GLAND Assessment/Plan is a admitted for intractable vomiting now found to have a pancreatic mass for which we are being consulted for. Pancreatic mass (in the head of the pancreas). Elevated LFTs Adrenal adenomas Hypokalemia -GI evaluation appreciated -MRI pancreas/liver is pending -tumor markers -Order CT chest -pending above results will need hepato-biliary surgical eval and also will need EUS. -adrenal adenomas being worked up. Will follow.
[2017-04-07] MEDS ORDERED: POTASSIUM CHLORIDE ORAL LIQUID 20 MEQ/15 ML PO ONE (16:21)
--- NOTE | 2017-04-07 17:29 | PN ---
Teaching Attending Note Name of Resident: Juan Pablo Dang (Nephrology) ATTENDING PHYSICIAN STATEMENT I saw and evaluated the patient. I reviewed the resident's note and discussed the case with the resident. I agree with the resident's findings and plan as documented. Nephrology Consult Pt still has episodes of vomiting. Current Medications Generic Name Dose Route Start Last Admin Trade Name Freq PRN Reason Stop Dose Admin Amlodipine Besylate 10 mg 04/06/17 10:00 04/07/17 09:47 Norvasc - PO 10 mg DAILY SAWYER Administration Aspirin 81 mg 04/06/17 10:00 04/07/17 09:47 Asa - PO 81 mg DAILY SAWYER Administration Carvedilol 6.25 mg 04/05/17 22:00 04/07/17 09:47 Coreg - PO 6.25 mg BID SAWYER Administration Docusate Sodium 300 mg 04/06/17 22:00 04/06/17 21:02 Colace - PO 300 mg HS SAWYER Administration Dorzolamide HCl 1 drop 04/05/17 22:00 04/07/17 09:47 Trusopt 2% OU 1 drop BID SAWYER Administration Enalapril Maleate 10 mg 04/05/17 22:00 04/06/17 09:12 Vasotec - PO 10 mg BID SAWYER Administration Sodium Chloride 1,000 mls @ 125 mls/hr 04/06/17 16:00 04/07/17 17:17 Normal Saline - IV 125 mls/hr ASDIR SAWYER Administration Potassium Chloride 100 mls @ 100 mls/hr 04/07/17 17:15 04/07/17 17:11 Potassium Chloride 10 Meq Premix Ivpb - IVPB 04/07/17 20:14 100 mls/hr Q60M SAWYER Administration Metoclopramide HCl 5 mg 04/06/17 03:14 04/07/17 12:24 Reglan Injection - IVPB 5 mg Q6H PRN Administration NAUSEA AND/OR VOMITING Potassium Chloride 20 meq 04/06/17 22:00 04/07/17 09:47 K-Dur - PO 04/08/17 21:59 20 meq BID SAWYER Administration Timolol Maleate 1 drop 04/05/17 22:00 04/07/17 09:48 Timoptic 0.5% OU 1 drop BID SAWYER Administration Laboratory Tests 04/07/17 04/07/17 05:35 14:00 Sodium 137 Potassium 3.0 L 3.2 L Chloride 90 L Anion Gap 11 BUN 15 cardio s1s2 reg pulm clear GI soft ext neg edema neuro awake and alert Impression 1. dehydration 2. hypokalemia 3. vomiting 4. enlarged pancreatic head 5. adrenal adenoma 6. transaminitis 7. DM 8. hyponatremia 9. HTN Plan - cont potassium supplements and monitor levels - GI follow up for mass and malignancy workup - discussed with medical scheduler - will work up adrenal adenomas Dr Mark
--- NOTE | 2017-04-07 19:53 | PN ---
Teaching Attending Note Name of Resident: Ernie Coburn ATTENDING PHYSICIAN STATEMENT I saw and evaluated the patient. I reviewed the resident's note and discussed the case with the resident. I agree with the resident's findings and plan as documented. SUBJECTIVE: Patient is comfortable but unable to keep any food down . No shortness of breath. Unable to keep any food down except liquid form. OBJECTIVE: Vital Signs Temperature 98.0 F 04/07/17 19:47 Pulse Rate 61 04/07/17 19:47 Respiratory Rate 20 04/07/17 19:47 Blood Pressure 127/62 04/07/17 19:47 O2 Sat by Pulse Oximetry (%) 97 04/07/17 08:00 CBCD WBC 7.2 K/mm3 (4.0-10.0) 04/06/17 05:35 RBC 4.64 M/mm3 (4.00-5.60) 04/06/17 05:35 Hgb 13.9 GM/dL (11.7-16.9) 04/06/17 05:35 Hct 41.1 % (35.4-49) 04/06/17 05:35 MCV 88.8 fl (80-96) 04/06/17 05:35 MCHC 33.8 g/dl (32.0-35.9) 04/06/17 05:35 RDW 14.4 % (11.9-15.9) 04/06/17 05:35 Plt Count 208 K/MM3 (134-434) D 04/06/17 05:35 MPV 7.1 fl (7.5-11.1) L 04/06/17 05:35 CMP Sodium 137 mmol/L (136-145) 04/07/17 05:35 Potassium 3.2 mmol/L (3.5-5.1) L 04/07/17 14:00 Chloride 90 mmol/L (98-107) L 04/07/17 05:35 Carbon Dioxide 36 mmol/L (21-32) H 04/07/17 05:35 Anion Gap 11 (8-16) 04/07/17 05:35 BUN 15 mg/dL (7-18) 04/07/17 05:35 Creatinine 0.9 mg/dL (0.7-1.3) 04/07/17 05:35 Creat Clearance w eGFR > 60 (>60) 04/07/17 05:35 Random Glucose 118 mg/dL (74-106) H 04/07/17 05:35 Calcium 8.7 mg/dL (8.5-10.1) 04/07/17 05:35 Total Bilirubin 1.4 mg/dL (0.2-1.0) H 04/07/17 05:35 AST 252 U/L (15-37) H D 04/07/17 05:35 ALT 278 U/L (12-78) H D 04/07/17 05:35 Alkaline Phosphatase 192 U/L (45-117) H D 04/07/17 05:35 Total Protein 6.9 g/dl (6.4-8.2) 04/07/17 05:35 Albumin 3.6 g/dl (3.4-5.0) 04/07/17 05:35 CARDIAC ENZYMES Creatine Kinase 402 IU/L (39-308) H 04/05/17 10:54 Troponin I < 0.02 ng/ml (0.00-0.05) 04/05/17 10:54 Current Medications Generic Name Dose Route Start Last Admin Trade Name Karthikq PRN Reason Stop Dose Admin Amlodipine Besylate 10 mg 04/06/17 10:00 04/07/17 09:47 Norvasc - PO 10 mg DAILY SAWYER Administration Aspirin 81 mg 04/06/17 10:00 04/07/17 09:47 Asa - PO 81 mg DAILY SAWYER Administration Carvedilol 6.25 mg 04/05/17 22:00 04/07/17 09:47 Coreg - PO 6.25 mg BID SAWYER Administration Docusate Sodium 300 mg 04/06/17 22:00 04/06/17 21:02 Colace - PO 300 mg HS SAWYER Administration Dorzolamide HCl 1 drop 04/05/17 22:00 04/07/17 09:47 Trusopt 2% OU 1 drop BID SAWYER Administration Enalapril Maleate 10 mg 04/05/17 22:00 04/06/17 09:12 Vasotec - PO 10 mg BID SAWYER Administration Sodium Chloride 1,000 mls @ 125 mls/hr 04/06/17 16:00 04/07/17 17:17 Normal Saline - IV 125 mls/hr ASDIR SAWYER Administration Potassium Chloride 100 mls @ 100 mls/hr 04/07/17 17:15 04/07/17 18:25 Potassium Chloride 10 Meq Premix Ivpb - IVPB 04/07/17 20:14 100 mls/hr Q60M SAWYER Administration Metoclopramide HCl 5 mg 04/06/17 03:14 04/07/17 18:08 Reglan Injection - IVPB 5 mg Q6H PRN Administration NAUSEA AND/OR VOMITING Potassium Chloride 20 meq 04/06/17 22:00 04/07/17 09:47 K-Dur - PO 04/08/17 21:59 20 meq BID SAWYER Administration Timolol Maleate 1 drop 04/05/17 22:00 04/07/17 09:48 Timoptic 0.5% OU 1 drop BID SAWYER Administration Home Medications Medication Instructions Recorded Carvedilol 6.25 mg PO BID 12/20/12 Amlodipine Besylate 10 mg PO DAILY 03/24/17 Aspirin [ASA -] 81 mg PO DAILY 03/24/17 Dorzolamide HCl/Timolol Maleat 10 ml OP DAILY 03/24/17 [Cosopt Eye Drops] Enalapril Maleate [Vasotec -] 10 mg PO BID 03/24/17 Insulin NPH Hum/Reg Insulin Hm 20 unit SQ BID 03/24/17 [Humulin 70-30 Vial] Metformin HCl 500 mg PO BID 03/24/17 Docusate Sodium [Colace -] 300 mg PO HS #30 capsule 03/26/17 Clinical history: Rule out obstruction. Comparison: None. Contiguous transaxial images were obtained from the diaphragmatic domes and pubic symphysis after the administration of with oral and without IV contrast. Lung bases: Mild atelectatic changes and small granuloma in the left posterior costophrenic sulcus. Bone: Osteopenia, scoliosis and degenerative changes. Anterior slippage L4 on L5. Liver: Hepatic calcified granuloma. Gallbladder: Possible hyperdense contracted gallbladder. It was seen on prior ultrasound of 2016. Biliary tree: Negative. Spleen: Small splenic calcifications. Small accessory spleen. Pancreas: Enlarged pancreatic head to approximately 4.9 cm in AP dimension x 4.2 cm in width. It is difficult to determine the exact dimensions. Please correlate with additional imaging such as MRI or pancreatic protocol CT. Adrenals: Bilateral hypodense adrenal masses, the right measuring 3.8 x 0.9 cm and the left 4.2 x 1.4 cm. These most likely represent adenomas. Kidneys: Small upper pole medial capsular or subcapsular calcification. Pelvis: Calcification of the vas deferens which is often seen with diabetics. Prostatic enlargement with calcifications. Incompletely distended bladder with prominent bladder wall. Bowel: Negative, including the appendix. No small bowel obstruction or ascites seen.. Other: Prominence of the distal esophageal wall with small hiatal hernia. Small umbilical hernia with fat. Impression: No bowel obstruction seen. Enlarged pancreatic head for which MRI or pancreatic protocol CT scan is needed. Bilateral adrenal adenoma. Hypodense contracted gallbladder. Other findings as above. Clinical correlation advised. US renal: Acute renal insufficiency Renal ultrasound The right kidney measures 10 cm in sagittal length and the left kidney measured 11.7 cm. Both kidneys appear unremarkable. Visualized portion of the liver is slightly hyperechoic. Rule out mild fatty infiltration. Please correlate with liver enzymes. Impression: Both kidneys appear morphologically unremarkable without evidence of hydronephrosis. PE: per resident's note ASSESSMENT AND PLAN: 66 yo M with a PMHx of HTN, DM2, HLD who presented with 4 weeks of progressively worsening nausea/vomiting placed on observation for intractable vomiting and ISAAC. # Enlarged Pancreatic head on CT scan 4.9cm x 4.2cm GI consult appreciated. Patient is going to for MRI/Mrcp today to further evaluation of the pancreas. Discussed with . # ISAAC improved due to having dehydration on IVF @ 125ml/hr. Repeat CMP in AM. # Acute transaminitis CT scan abdomen and pelvis as above. Trend LFTs # T2DM most likely due to a mass on the pancreatic head. Hem/onc consult Ca19.9 , alpha protein, ca125 markers pending the result # Acute severe Hypokalemia, being repleted with IV potassium s/p IV Potassium riders. # Acute Lactic acidosis improved. # Intractable Nausea and vomiting will continue IVF, NPO for now, advance diet as tolerated. DVT Px: early ambulation, SCDs
[2017-04-07] MEDS: DOCUSATE SODIUM 100 MG CAPSULE (FP) PO SCH (21:20)
[2017-04-08] MEDS: KCL 10 MEQ IVPB 100 ML IVPB SCH ×3 (01:11→03:45)
[2017-04-08] MEDS: SODIUM CHLORIDE 0.9%/KCL 1,000 ML IV SCH ×2 (01:11→09:29)
[2017-04-08 08:07] LABS: INR 1.47 (0.82-1.09); PROTHROMBIN TIME (PATIENT) 16.3 SEC (9.98-11.88)
[2017-04-08 08:09] LABS: ACTIVATED PTT 27.9 SECONDS (26.9-34.4)
[2017-04-08 08:13] LABS: ALBUMIN 3.2 g/dl (3.4-5.0); ANION GAP 10 (8-16); CALCIUM 8.5 mg/dL (8.5-10.1); CO2 33 mmol/L (21-32); GLUCOSE,RANDOM 89 mg/dL (74-106)
[2017-04-08 08:24] LABS: ALK PHOS 202 U/L (45-117); BILIRUBIN,TOTAL 1.6 mg/dL (0.2-1.0); CREATININE 0.8 mg/dL (0.7-1.3); FREE T4 1.29 ng/dl (0.76-1.16); SGOT/AST 316 U/L (15-37); SGPT/ALT 376 U/L (12-78); THYROID STIMULATING HORMONE 0.53 uIU/ml (0.358-3.74); TOT PROT 6.3 g/dl (6.4-8.2)
[2017-04-08] MEDS ORDERED: PT OWN MED DRAWER 7, Y5N ONE ×2 (09:23→21:45)
[2017-04-08] MEDS: DORZOLAMIDE 2% HCL OPHTHALMIC SOLUTION 10 ML BOTTLE OU SCH ×2 (09:29→21:47)
[2017-04-08] MEDS: POTASSIUM CHLORIDE TABS 20 MEQ TABLET.ER (FP) PO SCH (09:30)
[2017-04-08] MEDS: ASPIRIN 81 MG CHEWABLE TABLETS PO SCH (09:30)
[2017-04-08] MEDS: TIMOLOL 0.5% OPHTHALMIC SOL 5 ML BOTTLE OU SCH ×2 (09:30→21:48)
[2017-04-08] MEDS: amLODIPine BESYLATE 10 MG TABLET (FP) PO SCH (09:30)
[2017-04-08] MEDS: CARVEDILOL 6.25 MG TABLET (FP) PO SCH ×2 (09:30→21:47)
--- NOTE | 2017-04-08 10:29 | PN ---
Progress Note, Physician History of Present Illness: Renal F/U Pt still having some vomiting but no diarrhea K better though still low 20 Meq of KCL is in the IVF and additional 20 meqs given orally this am though pt had difficulty swallowing the pill - Current Medication List Current Medications: Active Medications Amlodipine Besylate (Norvasc -) 10 mg PO DAILY [facility] Last Admin: 04/08/17 09:30 Dose: 10 mg Aspirin (Asa -) 81 mg PO DAILY [facility] Last Admin: 04/08/17 09:30 Dose: 81 mg Carvedilol (Coreg -) 6.25 mg PO BID [facility] Last Admin: 04/08/17 09:30 Dose: 6.25 mg Docusate Sodium (Colace -) 300 mg PO HS [facility] Last Admin: 04/07/17 21:20 Dose: 300 mg Dorzolamide HCl (Trusopt 2%) 1 drop OU BID [facility] Last Admin: 04/08/17 09:29 Dose: 1 drop Enalapril Maleate (Vasotec -) 10 mg PO BID [facility] Last Admin: 04/06/17 09:12 Dose: 10 mg Potassium Chloride/Sodium Chloride (Ns+20 Meq Kcl -) 1,000 mls @ 125 mls/hr IV ASDIR [facility] Last Admin: 04/08/17 09:29 Dose: 125 mls/hr Metoclopramide HCl (Reglan Injection -) 5 mg IVPB Q6H PRN PRN Reason: NAUSEA AND/OR VOMITING Last Admin: 04/07/17 18:08 Dose: 5 mg Potassium Chloride (K-Dur -) 20 meq PO BID [facility] Stop: 04/08/17 21:59 Last Admin: 04/08/17 09:30 Dose: 20 meq Timolol Maleate (Timoptic 0.5%) 1 drop OU BID [facility] Last Admin: 04/08/17 09:30 Dose: 1 drop - Objective Vital Signs: Vital Signs Temperature 97.7 F 04/08/17 08:00 Pulse Rate 65 04/08/17 08:00 Respiratory Rate 18 04/08/17 08:00 Blood Pressure 145/82 04/08/17 08:00 O2 Sat by Pulse Oximetry (%) 97 04/07/17 08:00 Constitutional: Yes: No Distress Cardiovascular: Yes: S1, S2 Respiratory: Yes: CTA Bilaterally Gastrointestinal: Yes: Abdomen, Obese. No: Tenderness, Rebound Edema: No Labs: CBC, BMP 04/08/17 07:31 INR, PTT INR 1.47 (0.82-1.09) H 04/08/17 07:31 Laboratory Tests 04/07/17 05:35 Renin Activity Pending Aldosterone Pending Cortisol AM Sample 11.2 Assessment/Plan Impression Hypokalemia in pt with vomiting Pancreatic head lesion in separable from the duodenum Adrenal adenoma Transaminitis DM HTN Plan Change to liquid PO KCL Increase KCL in IVF to 40 meq per liter Romulo level pending Repeat BMP and Magnesium level in am GI W/U in progress Discussed with the Hospitalist Dr Zavaleta
[2017-04-08] MEDS ORDERED: SODIUM CHLORIDE 0.45% 1,000 ML with POTASSIUM CHLORIDE 40 MEQ IVPB SCH (10:45)
[2017-04-08] MEDS ORDERED: POTASSIUM CHLORIDE ORAL LIQUID 20 MEQ/15 ML PO ONE (11:00)
--- NOTE | 2017-04-08 11:01 | PN ---
Physical Exam: SUBJECTIVE: Patient seen and examined OBJECTIVE: Vital Signs Temperature 97.7 F 04/08/17 08:00 Pulse Rate 65 04/08/17 08:00 Respiratory Rate 18 04/08/17 08:00 Blood Pressure 145/82 04/08/17 08:00 O2 Sat by Pulse Oximetry (%) 97 04/07/17 08:00 GENERAL: The patient is awake, alert, and fully oriented, in no acute distress. HEAD: Normal with no signs of trauma. EYES: PERRL, extraocular movements intact, sclera anicteric, conjunctiva clear. No ptosis. ENT: Ears normal, nares patent, oropharynx clear without exudates, moist mucous membranes. NECK: Trachea midline, full range of motion, supple. LUNGS: Breath sounds equal, clear to auscultation bilaterally, no wheezes, no crackles, no accessory muscle use. HEART: Regular rate and rhythm, S1, S2 without murmur, rub or gallop. ABDOMEN: Soft, nontender, nondistended, normoactive bowel sounds, no guarding, no rebound, no hepatosplenomegaly, no masses. EXTREMITIES: 2+ pulses, warm, well-perfused, no edema. NEUROLOGICAL: Cranial nerves II through XII grossly intact. Normal speech, gait not observed. PSYCH: Normal mood, normal affect. SKIN: Warm, dry, normal turgor, no rashes or lesions noted Active Medications Generic Name Dose Route Start Last Admin Trade Name Freq PRN Reason Stop Dose Admin Amlodipine Besylate 10 mg 04/06/17 10:00 04/08/17 09:30 Norvasc - PO 10 mg DAILY SAWYER Administration Aspirin 81 mg 04/06/17 10:00 04/08/17 09:30 Asa - PO 81 mg DAILY SAWYER Administration Carvedilol 6.25 mg 04/05/17 22:00 04/08/17 09:30 Coreg - PO 6.25 mg BID SAWYER Administration Docusate Sodium 300 mg 04/06/17 22:00 04/07/17 21:20 Colace - PO 300 mg HS SAWYER Administration Dorzolamide HCl 1 drop 04/05/17 22:00 04/08/17 09:29 Trusopt 2% OU 1 drop BID SAWYER Administration Enalapril Maleate 10 mg 04/05/17 22:00 04/06/17 09:12 Vasotec - PO 10 mg BID SAWYER Administration Potassium Chloride/Sodium Chloride 1,000 mls @ 125 mls/hr 04/08/17 00:45 09:29 Ns+20 Meq Kcl - IV 125 mls/hr ASDIR SAWYER Administration Potassium Chloride 40 meq/ 1,020 mls @ 150 mls/hr 04/08/17 10:45 Sodium Chloride IVPB 04/09/17 17:32 ASDIR SAWYER Metoclopramide HCl 5 mg 04/06/17 03:14 04/07/17 18:08 Reglan Injection - IVPB 5 mg Q6H PRN Administration NAUSEA AND/OR VOMITING Potassium Chloride 20 meq 04/06/17 22:00 04/08/17 09:30 K-Dur - PO 04/08/17 21:59 20 meq BID SAWYER Administration Potassium Chloride 20 meq 04/08/17 11:00 Potassium Chloride Oral Liquid PO 04/08/17 11:01 ONCE ONE Timolol Maleate 1 drop 04/05/17 22:00 04/08/17 09:30 Timoptic 0.5% OU 1 drop BID SAWYER Administration Laboratory Results - last 24 hr 04/07/17 04/07/17 04/07/17 05:35 05:35 05:35 INR PTT (Actin FS) Sodium Potassium Chloride Carbon Dioxide Anion Gap BUN Creatinine Creat Clearance w eGFR POC Glucometer Random Glucose Calcium Total Bilirubin Direct Bilirubin AST ALT Alkaline Phosphatase Total Protein Albumin Carcinoembryonic Ag 1.2 CA 19-9 Antigen 1074 H CA 125 Antigen 11.5 TSH Free T4 Cortisol AM Sample 11.2 04/07/17 04/07/17 04/07/17 11:12 14:00 16:26 INR PTT (Actin FS) Sodium Potassium 3.2 L Chloride Carbon Dioxide Anion Gap BUN Creatinine Creat Clearance w eGFR POC Glucometer 132 94 Random Glucose Calcium Total Bilirubin Direct Bilirubin AST ALT Alkaline Phosphatase Total Protein Albumin Carcinoembryonic Ag CA 19-9 Antigen CA 125 Antigen TSH Free T4 Cortisol AM Sample 04/07/17 04/07/17 04/08/17 21:24 23:40 07:31 INR PTT (Actin FS) Sodium 139 Potassium 2.9 L* 3.0 L Chloride 96 L Carbon Dioxide 33 H Anion Gap 10 BUN 13 Creatinine 0.8 Creat Clearance w eGFR > 60 POC Glucometer 114 Random Glucose 89 D Calcium 8.5 Total Bilirubin 1.6 H Direct Bilirubin AST 316 H D ALT 376 H D Alkaline Phosphatase 202 H Total Protein 6.3 L Albumin 3.2 L Carcinoembryonic Ag CA 19-9 Antigen CA 125 Antigen TSH 0.53 Free T4 1.29 H Cortisol AM Sample 04/08/17 04/08/17 07:31 07:31 INR 1.47 H PTT (Actin FS) 27.9 Sodium Potassium Chloride Carbon Dioxide Anion Gap BUN Creatinine Creat Clearance w eGFR POC Glucometer Random Glucose Calcium Total Bilirubin Direct Bilirubin 0.8 H AST ALT Alkaline Phosphatase Total Protein Albumin Carcinoembryonic Ag CA 19-9 Antigen CA 125 Antigen TSH Free T4 Cortisol AM Sample Laboratory Tests 04/05/17 04/05/17 04/05/17 10:54 10:54 17:30 Sodium 132 L Hemoglobin A1c % Lactic Acid 4.7 H* 2.2 H* Calcium 10.3 H D Magnesium 2.5 H Total Bilirubin 1.3 H Direct Bilirubin AST 66 H ALT 108 H Alkaline Phosphatase 149 H D Creatine Kinase 402 H Total Protein Albumin Carcinoembryonic Ag CA 19-9 Antigen CA 125 Antigen TSH Free T4 04/06/17 04/07/17 04/07/17 05:35 05:35 05:35 Sodium Hemoglobin A1c % 6.7 H Lactic Acid Calcium Magnesium Total Bilirubin 1.2 H 1.4 H Direct Bilirubin AST 130 H D 252 H D ALT 153 H D 278 H D Alkaline Phosphatase 147 H 192 H D Creatine Kinase Total Protein Albumin Carcinoembryonic Ag CA 19-9 Antigen CA 125 Antigen TSH Free T4 04/07/17 04/07/17 04/08/17 05:35 05:35 07:31 Sodium Hemoglobin A1c % Lactic Acid Calcium Magnesium Total Bilirubin 1.6 H Direct Bilirubin AST 316 H D ALT 376 H D Alkaline Phosphatase 202 H Creatine Kinase Total Protein 6.3 L Albumin 3.2 L Carcinoembryonic Ag 1.2 CA 19-9 Antigen 1074 H CA 125 Antigen 11.5 TSH 0.53 Free T4 1.29 H 04/08/17 07:31 Sodium Hemoglobin A1c % Lactic Acid Calcium Magnesium Total Bilirubin Direct Bilirubin 0.8 H AST ALT Alkaline Phosphatase Creatine Kinase Total Protein Albumin Carcinoembryonic Ag CA 19-9 Antigen CA 125 Antigen TSH Free T4 Clinical history: Rule out obstruction. Comparison: None. Contiguous transaxial images were obtained from the diaphragmatic domes and pubic symphysis after the administration of with oral and without IV contrast. Lung bases: Mild atelectatic changes and small granuloma in the left posterior costophrenic sulcus. Bone: Osteopenia, scoliosis and degenerative changes. Anterior slippage L4 on L5. Liver: Hepatic calcified granuloma. Gallbladder: Possible hyperdense contracted gallbladder. It was seen on prior ultrasound of 2016. Biliary tree: Negative. Spleen: Small splenic calcifications. Small accessory spleen. Pancreas: Enlarged pancreatic head to approximately 4.9 cm in AP dimension x 4.2 cm in width. It is difficult to determine the exact dimensions. Please correlate with additional imaging such as MRI or pancreatic protocol CT. Adrenals: Bilateral hypodense adrenal masses, the right measuring 3.8 x 0.9 cm and the left 4.2 x 1.4 cm. These most likely represent adenomas. Kidneys: Small upper pole medial capsular or subcapsular calcification. Pelvis: Calcification of the vas deferens which is often seen with diabetics. Prostatic enlargement with calcifications. Incompletely distended bladder with prominent bladder wall. Bowel: Negative, including the appendix. No small bowel obstruction or ascites seen.. Other: Prominence of the distal esophageal wall with small hiatal hernia. Small umbilical hernia with fat. Impression: No bowel obstruction seen. Enlarged pancreatic head for which MRI or pancreatic protocol CT scan is needed. Bilateral adrenal adenoma. Hypodense contracted gallbladder. Other findings as above. Clinical correlation advised. US renal: Acute renal insufficiency Renal ultrasound The right kidney measures 10 cm in sagittal length and the left kidney measured 11.7 cm. Both kidneys appear unremarkable. Visualized portion of the liver is slightly hyperechoic. Rule out mild fatty infiltration. Please correlate with liver enzymes. Impression: Both kidneys appear morphologically unremarkable without evidence of hydronephrosis. ASSESSMENT AND PLAN: 66 yo M with a PMHx of HTN, DM2, HLD who presented with 4 weeks of progressively worsening nausea/vomiting placed on observation for intractable vomiting and ISAAC. # Enlarged Pancreatic head on CT scan 4.9cm x 4.2cm ,GI consult appreciated. MRCP result: confirmed suspected pancreatic mass with involvement of duodenum / vascular involvement as well. Stomach described as fluid filled as well suggestive of gastric outlet obstruction. Discussed with The patient the result of MRCP, discussed with GI regarding to transfer to tertiary care center to [facility] for further evaluation / Treatment including possible surgery or stenting to alleviate obstrusction. Discussed with Oncologist ,will arrange the transfer. # Persistent Intermittent vomiting will place the patient to clear liquid diet, if patient does not tolerate then NGT,npo , IV hydration # ISAAC improved due to having dehydration on IVF @ 125ml/hr. Repeat CMP in AM. # Acute transaminitis CT scan abdomen and pelvis as above. Trend LFTs # T2DM most likely due to a mass on the pancreatic head. Hem/onc consult Ca19.9 1074,, CEA 1.2 , ca125 11.5 # Acute severe Hypokalemia, being repleted with IV potassium s/p IV Potassium riders. # Acute Lactic acidosis improved. # Intractable Nausea and vomiting will continue IVF, NPO for now, advance diet as tolerated. DVT Px: early ambulation, SCDs Possible Tx to [facility] today or tomorrow. Discussed with oncologist Visit type - Emergency Visit Emergency Visit: Yes ED Registration Date: 04/06/17 Care time: The patient presented to the Emergency Department on the above date and was hospitalized for further evaluation of their emergent condition. - New Patient This patient is new to me today: No - Critical Care Critical Care patient: No
--- NOTE | 2017-04-08 11:38 | PN ---
Progress Note (short form) - Note Progress Note: Vomited this AM around 4:30 No abdominal pain MRI confirmed suspected pancreatic mass with involvement of duodenum / vascular involvement as well. Stomach described as fluid filled as well suggestive of gastric outlet obstruction Discussed MRI findings with Mr. Mckeon. I explained that it is highly suggestive of a pancreatic cancer involving his small intestine Plan: Oncology follow-up Transfer to tertiary care center for further evaluation / Treatment including possible surgery or stenting to alleviate obstrusction (ie [facility]). D/W Dr. Leiva as well and agreed with plan Downgraded diet to clear liquids. If persistent intermittent vomiting, NGT, NPO , IV hydration. Discussed the possibility of NGT with Mr. Mckeon
[2017-04-08] MEDS: SODIUM CHLORIDE 0.45% 1,000 ML with POTASSIUM CHLORIDE 40 MEQ IVPB SCH ×2 (12:15→17:23)
--- NOTE | 2017-04-08 12:20 | PN ---
Progress Note (short form) - Note Progress Note: Consult Consult Specialty:: Oncology Reason for Consultation:: Pancreatic mass - History of Present Illness History of Present Illness: is a 66 year old AA male with HTN, DM2, HLD who comes to the ER with episodes of intractable vomiting. He is undergoing workup for a pancreatic mass and the MRCP also confirmed this with minimal localised lymph nodes. -No abdominal pain -He is doing ok -some appetite Physical Exam Vital Signs: Vital Signs Period Temp Pulse Resp BP Sys/Christianson Pulse Ox Last 24 Hr 97.7 F-98.2 F 61-65 18-20 127-145/62-82 Constitutional: Yes: No Distress, Anxious Eyes: Yes: Conjunctiva Clear HENT: Yes: Atraumatic, Normocephalic Neck: Yes: Supple, Trachea Midline, Other (no supraclavicular LAD noted). No: Lymphadenopathy Cardiovascular: Yes: Regular Rate and Rhythm Respiratory: Yes: Regular, CTA Bilaterally Gastrointestinal: Yes: Normal Bowel Sounds, Soft, Abdomen, Obese, Other (could not appreciate any umbilical nodules) Edema: No Psychiatric: Yes: Alert, Oriented Labs: CBC, BMP 04/06/17 05:35 04/08/17 07:31 Imaging - Results Cat Scan: Report Reviewed, Image Reviewed Ultrasound: Report Reviewed MRCP : Report reviewed Problem List - Problems (1) Pancreatic enlargement Code(s): K86.9 - DISEASE OF PANCREAS, UNSPECIFIED (2) Elevated liver enzymes Code(s): R74.8 - ABNORMAL LEVELS OF OTHER SERUM ENZYMES (3) Hypokalemia Code(s): E87.6 - HYPOKALEMIA (4) Adrenal adenoma Code(s): D35.00 - BENIGN NEOPLASM OF UNSPECIFIED ADRENAL GLAND Assessment/Plan is a admitted for intractable vomiting now found to have a pancreatic mass for which we are being consulted for. Pancreatic mass (in the head of the pancreas). Elevated LFTs Adrenal adenomas Hypokalemia -GI evaluation appreciated -MRCP done -I saw the GI note and will discuss with regarding further workup and possible transfer -tumor markers
[2017-04-08] MEDS: DOCUSATE SODIUM 100 MG CAPSULE (FP) PO SCH (21:47)
[2017-04-09] MEDS ORDERED: PT OWN MED DRAWER 7, Y5N ONE (09:47)
[2017-04-09] MEDS: DORZOLAMIDE 2% HCL OPHTHALMIC SOLUTION 10 ML BOTTLE OU SCH ×2 (09:52→21:40)
[2017-04-09] MEDS: ASPIRIN 81 MG CHEWABLE TABLETS PO SCH (09:52)
[2017-04-09] MEDS: amLODIPine BESYLATE 10 MG TABLET (FP) PO SCH (09:52)
[2017-04-09] MEDS: TIMOLOL 0.5% OPHTHALMIC SOL 5 ML BOTTLE OU SCH ×2 (09:52→21:40)
[2017-04-09] MEDS: ENALAPRIL MALEATE 10 MG TABLET (FP) PO SCH ×2 (09:52→21:40)
[2017-04-09] MEDS: CARVEDILOL 6.25 MG TABLET (FP) PO SCH ×2 (09:52→21:40)
--- NOTE | 2017-04-09 10:34 | PN ---
Progress Note, Physician History of Present Illness: Renal F/U Pt still having some vomiting Awaiting transfer to [facility] Pt refused labs today - Current Medication List Current Medications: Active Medications Amlodipine Besylate (Norvasc -) 10 mg PO DAILY [facility] Last Admin: 04/09/17 09:52 Dose: 10 mg Aspirin (Asa -) 81 mg PO DAILY [facility] Last Admin: 04/09/17 09:52 Dose: 81 mg Carvedilol (Coreg -) 6.25 mg PO BID [facility] Last Admin: 04/09/17 09:52 Dose: 6.25 mg Docusate Sodium (Colace -) 300 mg PO HS [facility] Last Admin: 04/08/17 21:47 Dose: 300 mg Dorzolamide HCl (Trusopt 2%) 1 drop OU BID [facility] Last Admin: 04/09/17 09:52 Dose: 1 drop Enalapril Maleate (Vasotec -) 10 mg PO BID [facility] Last Admin: 04/09/17 09:52 Dose: 10 mg Metoclopramide HCl (Reglan Injection -) 5 mg IVPB Q6H PRN PRN Reason: NAUSEA AND/OR VOMITING Last Admin: 04/07/17 18:08 Dose: 5 mg Timolol Maleate (Timoptic 0.5%) 1 drop OU BID [facility] Last Admin: 04/09/17 09:52 Dose: 1 drop - Objective Vital Signs: Vital Signs Temperature 99.2 F 04/09/17 08:00 Pulse Rate 62 04/09/17 08:00 Respiratory Rate 18 04/09/17 08:00 Blood Pressure 140/85 04/09/17 08:00 O2 Sat by Pulse Oximetry (%) 97 04/08/17 16:00 Constitutional: Yes: No Distress Cardiovascular: Yes: S1, S2 Respiratory: Yes: CTA Bilaterally Gastrointestinal: Yes: Soft, Distention. No: Tenderness, Rebound Edema: No Labs: CBC, BMP 04/08/17 07:31 INR, PTT INR 1.47 (0.82-1.09) H 04/08/17 07:31 Assessment/Plan Impression Hypokalemia in pt with vomiting from gastric outlet obstruction Pancreatic head mass inseparable from the duodenum Adrenal adenoma Transaminitis DM HTN Plan Being transferred to [facility] for further management Aldosterone level still pending Repeat if and when pt agrees- Since he his being transfered this am they will likely be done at the receiving hospital Dr Zavaleta
--- NOTE | 2017-04-09 11:47 | PN ---
Progress Note (short form) - Note Progress Note: Consult Consult Specialty:: Oncology Reason for Consultation:: Pancreatic mass - History of Present Illness History of Present Illness: is a 66 year old AA male with HTN, DM2, HLD who comes to the ER with episodes of intractable vomiting. He is undergoing workup for a pancreatic mass and the MRCP also confirmed this with minimal localised lymph nodes. -No abdominal pain -He is doing ok -some appetite loss Physical Exam Vital Signs: Vital Signs Period Temp Pulse Resp BP Sys/Christianson Pulse Ox Last 24 Hr 97.7 F-99.2 F 60-73 18-20 136-150/59-86 97 Constitutional: Yes: No Distress, Anxious Eyes: Yes: Conjunctiva Clear HENT: Yes: Atraumatic, Normocephalic Neck: Yes: Supple, Trachea Midline, Other (no supraclavicular LAD noted). No: Lymphadenopathy Cardiovascular: Yes: Regular Rate and Rhythm Respiratory: Yes: Regular, CTA Bilaterally Gastrointestinal: Yes: Normal Bowel Sounds, Soft, Abdomen, Obese, Other (could not appreciate any umbilical nodules) Edema: No Psychiatric: Yes: Alert, Oriented Labs: CBC, BMP 04/06/17 05:35 Imaging - Results Cat Scan: Report Reviewed, Image Reviewed Ultrasound: Report Reviewed MRCP : Report reviewed Problem List - Problems (1) Pancreatic enlargement Code(s): K86.9 - DISEASE OF PANCREAS, UNSPECIFIED (2) Elevated liver enzymes Code(s): R74.8 - ABNORMAL LEVELS OF OTHER SERUM ENZYMES (3) Hypokalemia Code(s): E87.6 - HYPOKALEMIA (4) Adrenal adenoma Code(s): D35.00 - BENIGN NEOPLASM OF UNSPECIFIED ADRENAL GLAND Assessment/Plan is a admitted for intractable vomiting now found to have a pancreatic mass for which we are being consulted for. Pancreatic mass (in the head of the pancreas). Elevated LFTs Adrenal adenomas Hypokalemia -we are awaiting transfer to [facility]] to [facility] under GI oncologist Dr.Andreas Zimmer -I touched base with the team there this morning and they are waiting for an open bed which should be available later today -I have explained this to the patient and he understands the situation
[2017-04-09 11:55] LABS: ANION GAP 6 (8-16); CALCIUM 9.1 mg/dL (8.5-10.1); CO2 37 mmol/L (21-32); CREATININE 1.1 mg/dL (0.7-1.3); GLUCOSE,RANDOM 121 mg/dL (74-106); MAGNESIUM 2.1 mg/dL (1.8-2.4)
--- NOTE | 2017-04-09 12:07 | PN ---
Progress Note (short form) - Note Progress Note: Patient vomited this morning and refused blood work Discussed with Mr. Mckeon: He is amenable to NGT and blood work
--- NOTE | 2017-04-09 13:18 | PN ---
Progress Note (short form) - Note Progress Note: Patient is tolerating only the ice chips. Patient is on clear diet now. no pain , no nausea, vomiting only when you advance his diet. Vital Signs Temperature 99.2 F 04/09/17 08:00 Pulse Rate 62 04/09/17 08:00 Respiratory Rate 18 04/09/17 08:00 Blood Pressure 140/85 04/09/17 08:00 O2 Sat by Pulse Oximetry (%) 98 04/09/17 08:00 ENERAL: The patient is awake, alert, and fully oriented, in no acute distress. Very nice gentleman HEAD: Normal with no signs of trauma. EYES: PERRL, extraocular movements intact, sclera anicteric, conjunctiva clear. No ptosis. ENT: Ears normal, nares patent, oropharynx clear without exudates, moist mucous membranes. NECK: Trachea midline, full range of motion, supple. LUNGS: Breath sounds equal, clear to auscultation bilaterally, no wheezes, no crackles, no accessory muscle use. HEART: Regular rate and rhythm, S1, S2 without murmur, rub or gallop. ABDOMEN: Soft, nontender, nondistended, normoactive bowel sounds, no guarding, no rebound, no hepatosplenomegaly, no masses appreciated. EXTREMITIES: 2+ pulses, warm, well-perfused, no edema. NEUROLOGICAL: Cranial nerves II through XII grossly intact. Normal speech, gait not observed. PSYCH: Normal mood, normal affect. SKIN: Warm, dry, normal turgor, no rashes or lesions noted CBCD WBC 7.2 K/mm3 (4.0-10.0) 04/06/17 05:35 RBC 4.64 M/mm3 (4.00-5.60) 04/06/17 05:35 Hgb 13.9 GM/dL (11.7-16.9) 04/06/17 05:35 Hct 41.1 % (35.4-49) 04/06/17 05:35 MCV 88.8 fl (80-96) 04/06/17 05:35 MCHC 33.8 g/dl (32.0-35.9) 04/06/17 05:35 RDW 14.4 % (11.9-15.9) 04/06/17 05:35 Plt Count 208 K/MM3 (134-434) D 04/06/17 05:35 MPV 7.1 fl (7.5-11.1) L 04/06/17 05:35 CMP Sodium 139 mmol/L (136-145) 04/09/17 11:10 Potassium 3.1 mmol/L (3.5-5.1) L 04/09/17 11:10 Chloride 96 mmol/L (98-107) L 04/09/17 11:10 Carbon Dioxide 37 mmol/L (21-32) H 04/09/17 11:10 Anion Gap 6 (8-16) L 04/09/17 11:10 BUN 15 mg/dL (7-18) 04/09/17 11:10 Creatinine 1.1 mg/dL (0.7-1.3) D 04/09/17 11:10 Creat Clearance w eGFR > 60 (>60) 04/08/17 07:31 Random Glucose 121 mg/dL (74-106) H D 04/09/17 11:10 Calcium 9.1 mg/dL (8.5-10.1) 04/09/17 11:10 Total Bilirubin 1.6 mg/dL (0.2-1.0) H 04/08/17 07:31 AST 316 U/L (15-37) H D 04/08/17 07:31 ALT 376 U/L (12-78) H D 04/08/17 07:31 Alkaline Phosphatase 202 U/L (45-117) H 04/08/17 07:31 Total Protein 6.3 g/dl (6.4-8.2) L 04/08/17 07:31 Albumin 3.2 g/dl (3.4-5.0) L 04/08/17 07:31 CARDIAC ENZYMES Creatine Kinase 402 IU/L (39-308) H 04/05/17 10:54 Troponin I < 0.02 ng/ml (0.00-0.05) 04/05/17 10:54 Current Medications Generic Name Dose Route Start Last Admin Trade Name Freq PRN Reason Stop Dose Admin Amlodipine Besylate 10 mg 04/06/17 10:00 04/09/17 09:52 Norvasc - PO 10 mg DAILY SAWYER Administration Aspirin 81 mg 04/06/17 10:00 04/09/17 09:52 Asa - PO 81 mg DAILY SAWYER Administration Carvedilol 6.25 mg 04/05/17 22:00 04/09/17 09:52 Coreg - PO 6.25 mg BID SAWYER Administration Docusate Sodium 300 mg 04/06/17 22:00 04/08/17 21:47 Colace - PO 300 mg HS SAWYER Administration Dorzolamide HCl 1 drop 04/05/17 22:00 04/09/17 09:52 Trusopt 2% OU 1 drop BID SAWYER Administration Enalapril Maleate 10 mg 04/05/17 22:00 04/09/17 09:52 Vasotec - PO 10 mg BID SAWYER Administration Metoclopramide HCl 5 mg 04/06/17 03:14 04/07/17 18:08 Reglan Injection - IVPB 5 mg Q6H PRN Administration NAUSEA AND/OR VOMITING Timolol Maleate 1 drop 04/05/17 22:00 04/09/17 09:52 Timoptic 0.5% OU 1 drop BID SAWYER Administration Home Medications Medication Instructions Recorded Carvedilol 6.25 mg PO BID 12/20/12 Amlodipine Besylate 10 mg PO DAILY 03/24/17 Aspirin [ASA -] 81 mg PO DAILY 03/24/17 Dorzolamide HCl/Timolol Maleat 10 ml OP DAILY 03/24/17 [Cosopt Eye Drops] Enalapril Maleate [Vasotec -] 10 mg PO BID 03/24/17 Insulin NPH Hum/Reg Insulin Hm 20 unit SQ BID 03/24/17 [Humulin 70-30 Vial] Metformin HCl 500 mg PO BID 03/24/17 Docusate Sodium [Colace -] 300 mg PO HS #30 capsule 03/26/17 Clinical history: Rule out obstruction. Comparison: None. Contiguous transaxial images were obtained from the diaphragmatic domes and pubic symphysis after the administration of with oral and without IV contrast. Lung bases: Mild atelectatic changes and small granuloma in the left posterior costophrenic sulcus. Bone: Osteopenia, scoliosis and degenerative changes. Anterior slippage L4 on L5. Liver: Hepatic calcified granuloma. Gallbladder: Possible hyperdense contracted gallbladder. It was seen on prior ultrasound of 2016. Biliary tree: Negative. Spleen: Small splenic calcifications. Small accessory spleen. Pancreas: Enlarged pancreatic head to approximately 4.9 cm in AP dimension x 4.2 cm in width. It is difficult to determine the exact dimensions. Please correlate with additional imaging such as MRI or pancreatic protocol CT. Adrenals: Bilateral hypodense adrenal masses, the right measuring 3.8 x 0.9 cm and the left 4.2 x 1.4 cm. These most likely represent adenomas. Kidneys: Small upper pole medial capsular or subcapsular calcification. Pelvis: Calcification of the vas deferens which is often seen with diabetics. Prostatic enlargement with calcifications. Incompletely distended bladder with prominent bladder wall. Bowel: Negative, including the appendix. No small bowel obstruction or ascites seen.. Other: Prominence of the distal esophageal wall with small hiatal hernia. Small umbilical hernia with fat. Impression: No bowel obstruction seen. Enlarged pancreatic head for which MRI or pancreatic protocol CT scan is needed. Bilateral adrenal adenoma. Hypodense contracted gallbladder. Other findings as above. Clinical correlation advised. US renal: Acute renal insufficiency Renal ultrasound The right kidney measures 10 cm in sagittal length and the left kidney measured 11.7 cm. Both kidneys appear unremarkable. Visualized portion of the liver is slightly hyperechoic. Rule out mild fatty infiltration. Please correlate with liver enzymes. Impression: Both kidneys appear morphologically unremarkable without evidence of hydronephrosis. ASSESSMENT AND PLAN: 66 yo M with a PMHx of HTN, DM2, HLD who presented with 4 weeks of progressively worsening nausea/vomiting placed on observation for intractable vomiting and ISAAC. Patient is getting transferred to [facility] either today or in am. # Enlarged Pancreatic head on CT scan 4.9cm x 4.2cm ,GI consult appreciated. MRCP result: confirmed suspected pancreatic mass with involvement of duodenum / vascular involvement as well. Stomach described as fluid filled as well suggestive of gastric outlet obstruction. Discussed with The patient the result of MRCP, discussed with GI regarding to transfer to tertiary care center to [facility] for further evaluation / Treatment including possible surgery or stenting to alleviate obstrusction. Discussed with Oncologist ,will arrange the transfer. # Persistent Intermittent vomiting will place the patient to clear liquid diet, if patient does not tolerate then NGT,npo , IV hydration # ISAAC improved due to having dehydration on IVF @ 125ml/hr. Repeat CMP in AM. # Acute transaminitis CT scan abdomen and pelvis as above. Trend LFTs # T2DM most likely due to a mass on the pancreatic head. Hem/onc consult Ca19.9 1074,, CEA 1.2 , ca125 11.5 # Acute severe Hypokalemia, being repleted with IV potassium s/p IV Potassium riders. # Acute Lactic acidosis improved. # Intractable Nausea and vomiting will continue IVF, NPO for now, advance diet as tolerated. DVT Px: early ambulation, SCDs Possible Tx to [facility] today or tomorrow. Discussed with oncologist Visit type - Emergency Visit Emergency Visit: Yes ED Registration Date: 04/06/17 Care time: The patient presented to the Emergency Department on the above date and was hospitalized for further evaluation of their emergent condition. - New Patient This patient is new to me today: No - Critical Care Critical Care patient: No - Discharge Referral Referred to [facility] No
--- NOTE | 2017-04-09 13:25 | DS ---
Physical Exam: SUBJECTIVE: Patient seen and examined Patient is tolerating only the ice chips. Patient is on clear diet now. no pain , no nausea, vomiting only when you advance his diet. Vital Signs Temperature 99.2 F 04/09/17 08:00 Pulse Rate 62 04/09/17 08:00 Respiratory Rate 18 04/09/17 08:00 Blood Pressure 140/85 04/09/17 08:00 O2 Sat by Pulse Oximetry (%) 98 04/09/17 08:00 ENERAL: The patient is awake, alert, and fully oriented, in no acute distress. Very nice gentleman HEAD: Normal with no signs of trauma. EYES: PERRL, extraocular movements intact, sclera anicteric, conjunctiva clear. No ptosis. ENT: Ears normal, nares patent, oropharynx clear without exudates, moist mucous membranes. NECK: Trachea midline, full range of motion, supple. LUNGS: Breath sounds equal, clear to auscultation bilaterally, no wheezes, no crackles, no accessory muscle use. HEART: Regular rate and rhythm, S1, S2 without murmur, rub or gallop. ABDOMEN: Soft, nontender, nondistended, normoactive bowel sounds, no guarding, no rebound, no hepatosplenomegaly, no masses appreciated. EXTREMITIES: 2+ pulses, warm, well-perfused, no edema. NEUROLOGICAL: Cranial nerves II through XII grossly intact. Normal speech, gait not observed. PSYCH: Normal mood, normal affect. SKIN: Warm, dry, normal turgor, no rashes or lesions noted CBCD WBC 7.2 K/mm3 (4.0-10.0) 04/06/17 05:35 RBC 4.64 M/mm3 (4.00-5.60) 04/06/17 05:35 Hgb 13.9 GM/dL (11.7-16.9) 04/06/17 05:35 Hct 41.1 % (35.4-49) 04/06/17 05:35 MCV 88.8 fl (80-96) 04/06/17 05:35 MCHC 33.8 g/dl (32.0-35.9) 04/06/17 05:35 RDW 14.4 % (11.9-15.9) 04/06/17 05:35 Plt Count 208 K/MM3 (134-434) D 04/06/17 05:35 MPV 7.1 fl (7.5-11.1) L 04/06/17 05:35 CMP Sodium 139 mmol/L (136-145) 04/09/17 11:10 Potassium 3.1 mmol/L (3.5-5.1) L 04/09/17 11:10 Chloride 96 mmol/L (98-107) L 04/09/17 11:10 Carbon Dioxide 37 mmol/L (21-32) H 04/09/17 11:10 Anion Gap 6 (8-16) L 04/09/17 11:10 BUN 15 mg/dL (7-18) 04/09/17 11:10 Creatinine 1.1 mg/dL (0.7-1.3) D 04/09/17 11:10 Creat Clearance w eGFR > 60 (>60) 04/08/17 07:31 Random Glucose 121 mg/dL (74-106) H D 04/09/17 11:10 Calcium 9.1 mg/dL (8.5-10.1) 04/09/17 11:10 Total Bilirubin 1.6 mg/dL (0.2-1.0) H 04/08/17 07:31 AST 316 U/L (15-37) H D 04/08/17 07:31 ALT 376 U/L (12-78) H D 04/08/17 07:31 Alkaline Phosphatase 202 U/L (45-117) H 04/08/17 07:31 Total Protein 6.3 g/dl (6.4-8.2) L 04/08/17 07:31 Albumin 3.2 g/dl (3.4-5.0) L 04/08/17 07:31 CARDIAC ENZYMES Creatine Kinase 402 IU/L (39-308) H 04/05/17 10:54 Troponin I < 0.02 ng/ml (0.00-0.05) 04/05/17 10:54 Current Medications Generic Name Dose Route Start Last Admin Trade Name Freq PRN Reason Stop Dose Admin Amlodipine Besylate 10 mg 04/06/17 10:00 04/09/17 09:52 Norvasc - PO 10 mg DAILY SAWYER Administration Aspirin 81 mg 04/06/17 10:00 04/09/17 09:52 Asa - PO 81 mg DAILY SAWYER Administration Carvedilol 6.25 mg 04/05/17 22:00 04/09/17 09:52 Coreg - PO 6.25 mg BID SAWYER Administration Docusate Sodium 300 mg 04/06/17 22:00 04/08/17 21:47 Colace - PO 300 mg HS SAWYER Administration Dorzolamide HCl 1 drop 04/05/17 22:00 04/09/17 09:52 Trusopt 2% OU 1 drop BID SAWYER Administration Enalapril Maleate 10 mg 04/05/17 22:00 04/09/17 09:52 Vasotec - PO 10 mg BID SAWYER Administration Metoclopramide HCl 5 mg 04/06/17 03:14 04/07/17 18:08 Reglan Injection - IVPB 5 mg Q6H PRN Administration NAUSEA AND/OR VOMITING Timolol Maleate 1 drop 04/05/17 22:00 04/09/17 09:52 Timoptic 0.5% OU 1 drop BID SAWYER Administration Home Medications Medication Instructions Recorded Carvedilol 6.25 mg PO BID 12/20/12 Amlodipine Besylate 10 mg PO DAILY 03/24/17 Aspirin [ASA -] 81 mg PO DAILY 03/24/17 Dorzolamide HCl/Timolol Maleat 10 ml OP DAILY 03/24/17 [Cosopt Eye Drops] Enalapril Maleate [Vasotec -] 10 mg PO BID 03/24/17 Insulin NPH Hum/Reg Insulin Hm 20 unit SQ BID 03/24/17 [Humulin 70-30 Vial] Metformin HCl 500 mg PO BID 03/24/17 Docusate Sodium [Colace -] 300 mg PO HS #30 capsule 03/26/17 Clinical history: Rule out obstruction. Comparison: None. Contiguous transaxial images were obtained from the diaphragmatic domes and pubic symphysis after the administration of with oral and without IV contrast. Lung bases: Mild atelectatic changes and small granuloma in the left posterior costophrenic sulcus. Bone: Osteopenia, scoliosis and degenerative changes. Anterior slippage L4 on L5. Liver: Hepatic calcified granuloma. Gallbladder: Possible hyperdense contracted gallbladder. It was seen on prior ultrasound of 2016. Biliary tree: Negative. Spleen: Small splenic calcifications. Small accessory spleen. Pancreas: Enlarged pancreatic head to approximately 4.9 cm in AP dimension x 4.2 cm in width. It is difficult to determine the exact dimensions. Please correlate with additional imaging such as MRI or pancreatic protocol CT. Adrenals: Bilateral hypodense adrenal masses, the right measuring 3.8 x 0.9 cm and the left 4.2 x 1.4 cm. These most likely represent adenomas. Kidneys: Small upper pole medial capsular or subcapsular calcification. Pelvis: Calcification of the vas deferens which is often seen with diabetics. Prostatic enlargement with calcifications. Incompletely distended bladder with prominent bladder wall. Bowel: Negative, including the appendix. No small bowel obstruction or ascites seen.. Other: Prominence of the distal esophageal wall with small hiatal hernia. Small umbilical hernia with fat. Impression: No bowel obstruction seen. Enlarged pancreatic head for which MRI or pancreatic protocol CT scan is needed. Bilateral adrenal adenoma. Hypodense contracted gallbladder. Other findings as above. Clinical correlation advised. US renal: Acute renal insufficiency Renal ultrasound The right kidney measures 10 cm in sagittal length and the left kidney measured 11.7 cm. Both kidneys appear unremarkable. Visualized portion of the liver is slightly hyperechoic. Rule out mild fatty infiltration. Please correlate with liver enzymes. Impression: Both kidneys appear morphologically unremarkable without evidence of hydronephrosis. HOSPITAL COURSE: Date of Admission:04/06/17 Date of Discharge: 04/09/17 66 yo M with a PMHx of HTN, DM2, HLD who presented with 4 weeks of progressively worsening nausea/vomiting placed on observation for intractable vomiting and ISAAC. Patient is getting transferred to [facility] today. # Enlarged Pancreatic head on CT scan 4.9cm x 4.2cm ,GI consult appreciated. MRCP result: confirmed suspected pancreatic mass with involvement of duodenum / vascular involvement as well. Stomach described as fluid filled as well suggestive of gastric outlet obstruction. Discussed with The patient the result of MRCP, discussed with GI regarding to transfer to tertiary care center to [facility] for further evaluation / Treatment including possible surgery or stenting to alleviate obstrusction. Discussed with Oncologist ,will arrange the transfer. # Persistent Intermittent vomiting will place the patient to clear liquid diet, if patient does not tolerate then NGT,npo , IV hydration # ISAAC improved due to having dehydration on IVF @ 125ml/hr. Repeat CMP in AM. # Acute transaminitis CT scan abdomen and pelvis as above. Trend LFTs # T2DM most likely due to a mass on the pancreatic head. Hem/onc consult Ca19.9 1074,, CEA 1.2 , ca125 11.5 # Acute severe Hypokalemia, being repleted with IV potassium s/p IV Potassium riders. # Acute Lactic acidosis improved. # Intractable Nausea and vomiting will continue IVF, NPO for now, advance diet as tolerated. DVT Px: early ambulation, SCDs Possible Tx to [facility] today or tomorrow. Discussed with oncologist Discharge Summary Reason For Visit: VOMITING,HYPOKALEMIA,ACUTE KIDNEY INJURY Current Active Problems ISAAC (acute kidney injury) (Acute) Adrenal adenoma (Acute) Elevated liver enzymes (Acute) HTN (hypertension) (Acute) Hypokalemia (Acute) Hyponatremia (Acute) IDDM (insulin dependent diabetes mellitus) (Acute) Lactic acidosis (Acute) Pancreatic enlargement (Acute) Vomiting (Acute) Condition: Stable - Instructions Referrals: Jose Diaz MD, MD [Primary Care Provider] - - Home Medications Comprehensive Discharge Medication List: Ambulatory Orders Carvedilol 6.25 mg PO BID 12/20/12 Amlodipine Besylate 10 mg PO DAILY 03/24/17 Aspirin [ASA -] 81 mg PO DAILY 03/24/17 Dorzolamide HCl/Timolol Maleat [Cosopt Eye Drops] 10 ml OP DAILY 03/24/17 Enalapril Maleate [Vasotec -] 10 mg PO BID 03/24/17 Insulin NPH Hum/Reg Insulin Hm [Humulin 70-30 Vial] 20 unit SQ BID 03/24/17 Metformin HCl 500 mg PO BID 03/24/17 Docusate Sodium [Colace -] 300 mg PO HS #30 capsule 03/26/17
[2017-04-09] MEDS: KCL 10 MEQ IVPB 100 ML IVPB SCH ×2 (13:59→15:51)
[2017-04-09] MEDS: DOCUSATE SODIUM 100 MG CAPSULE (FP) PO SCH (21:40)
[2017-04-10] MEDS ORDERED: SODIUM CHLORIDE 1,000 ML IV SCH (02:45)
[2017-04-10] MEDS: SODIUM CHLORIDE 1,000 ML IV SCH ×2 (09:29→14:08)
[2017-04-10] MEDS ORDERED: PT OWN MED DRAWER 7, Y5N ONE (10:13)
[2017-04-10] MEDS: DORZOLAMIDE 2% HCL OPHTHALMIC SOLUTION 10 ML BOTTLE OU SCH (10:28)
[2017-04-10] MEDS: CARVEDILOL 6.25 MG TABLET (FP) PO SCH (10:28)
[2017-04-10] MEDS: ASPIRIN 81 MG CHEWABLE TABLETS PO SCH (10:28)
[2017-04-10] MEDS: ENALAPRIL MALEATE 10 MG TABLET (FP) PO SCH (10:28)
[2017-04-10] MEDS: TIMOLOL 0.5% OPHTHALMIC SOL 5 ML BOTTLE OU SCH (10:28)
[2017-04-10] MEDS: amLODIPine BESYLATE 10 MG TABLET (FP) PO SCH (10:28)
--- NOTE | 2017-04-10 11:48 | PN ---
Physical Exam: SUBJECTIVE: Patient seen and examined. sitting comfortably in bed. Sr. K improving. 3.3 OBJECTIVE: Vital Signs Period Temp Pulse Resp BP Sys/[place] Pulse Ox Last 24 Hr 97.4 F-98.5 F 60-78 18-20 113-138/74-79 96-97 GENERAL: Awake, alert, and fully oriented, in no acute distress. HEAD: Normal with no signs of trauma. EARS, NOSE, THROAT:oropharynx clear without exudates. NECK: Normal range of motion, no JVD, or masses. LUNGS: Breath sounds equal, clear to auscultation bilaterally. No wheezes, and no crackles. No accessory muscle use. HEART: Regular rate normal S1 and S2 without murmur, ABDOMEN: Soft, nontender, not distended, normoactive bowel sounds, no guarding, no rebound, UPPER EXTREMITIES: 2+ pulses, warm, well-perfused. No peripheral edema. LOWER EXTREMITIES: warm, well-perfused. No calf tenderness. No peripheral edema. SKIN: Warm, dry, Laboratory Results - last 24 hr 04/09/17 04/09/17 04/10/17 11:10 22:26 06:33 Sodium 139 Potassium 3.1 L Chloride 96 L Carbon Dioxide 37 H Anion Gap 6 L BUN 15 Creatinine 1.1 D POC Glucometer 110 163 Random Glucose 121 H D Calcium 9.1 Magnesium 2.1 04/10/17 09:45 Sodium Potassium 3.3 L Chloride Carbon Dioxide Anion Gap BUN Creatinine POC Glucometer Random Glucose Calcium Magnesium Active Medications Generic Name Dose Route Start Last Admin Trade Name Freq PRN Reason Stop Dose Admin Amlodipine Besylate 10 mg 04/06/17 10:00 04/10/17 10:28 Norvasc - PO 10 mg DAILY SAWYER Administration Aspirin 81 mg 04/06/17 10:00 04/10/17 10:28 Asa - PO 81 mg DAILY SAWYER Administration Carvedilol 6.25 mg 04/05/17 22:00 04/10/17 10:28 Coreg - PO 6.25 mg BID SAWYER Administration Docusate Sodium 300 mg 04/06/17 22:00 04/09/17 21:40 Colace - PO 300 mg HS SAWYER Administration Dorzolamide HCl 1 drop 04/05/17 22:00 04/10/17 10:28 Trusopt 2% OU 1 drop BID SAWYER Administration Enalapril Maleate 10 mg 04/05/17 22:00 04/10/17 10:28 Vasotec - PO 10 mg BID SAWYER Administration Sodium Chloride 1,000 mls @ 100 mls/hr 04/10/17 08:22 04/10/17 09:29 Normal Saline - IV Not Given ASDIR SAWYER Metoclopramide HCl 5 mg 04/06/17 03:14 04/07/17 18:08 Reglan Injection - IVPB 5 mg Q6H PRN Administration NAUSEA AND/OR VOMITING Timolol Maleate 1 drop 04/05/17 22:00 04/10/17 10:28 Timoptic 0.5% OU 1 drop BID SAWYER Administration ASSESSMENT/PLAN: 1. Dehydration 2. hypokalemia 3. vomiting 4. Pancreatic mass with involvement o Duodenum 5. adrenal adenoma 6. transaminitis 7. DM 8. hyponatremia 9. HTN Plan - Replace potassium, IV 30 meq ordered. Try to keep between 3.5 to 5. - Monitor Sr. Potassium. - Gastro consult appreciated. - Work up for adrenal adenoma pending. - Continue Iv fluid - Patient has been transferred to [facility] for further management. Visit type - Emergency Visit Emergency Visit: Yes ED Registration Date: 04/06/17 Care time: The patient presented to the Emergency Department on the above date and was hospitalized for further evaluation of their emergent condition. - New Patient This patient is new to me today: No - Critical Care Critical Care patient: No
[2017-04-10] MEDS: KCL 10 MEQ IVPB 100 ML IVPB SCH ×3 (11:56→15:08)
--- NOTE | 2017-04-10 12:39 | PN ---
Teaching Attending Note Name of Resident: Juan Pablo Dang (Nephrology) ATTENDING PHYSICIAN STATEMENT I saw and evaluated the patient. I reviewed the resident's note and discussed the case with the resident. I agree with the resident's findings and plan as documented. Renal Follow UP Pt seen and examined at bedside. Current Medications Generic Name Dose Route Start Last Admin Trade Name Freq PRN Reason Stop Dose Admin Amlodipine Besylate 10 mg 04/06/17 10:00 04/10/17 10:28 Norvasc - PO 10 mg DAILY SAWYER Administration Aspirin 81 mg 04/06/17 10:00 04/10/17 10:28 Asa - PO 81 mg DAILY SAWYER Administration Carvedilol 6.25 mg 04/05/17 22:00 04/10/17 10:28 Coreg - PO 6.25 mg BID SAWYER Administration Docusate Sodium 300 mg 04/06/17 22:00 04/09/17 21:40 Colace - PO 300 mg HS SAWYER Administration Dorzolamide HCl 1 drop 04/05/17 22:00 04/10/17 10:28 Trusopt 2% OU 1 drop BID SAWYER Administration Enalapril Maleate 10 mg 04/05/17 22:00 04/10/17 10:28 Vasotec - PO 10 mg BID SAWYER Administration Sodium Chloride 1,000 mls @ 100 mls/hr 04/10/17 08:22 04/10/17 09:29 Normal Saline - IV Not Given ASDIR SAWYER Potassium Chloride 100 mls @ 100 mls/hr 04/10/17 12:00 04/10/17 11:56 Potassium Chloride 10 Meq Premix Ivpb - IVPB 04/10/17 14:59 100 mls/hr Q60M SAWYER Administration Metoclopramide HCl 5 mg 04/06/17 03:14 04/07/17 18:08 Reglan Injection - IVPB 5 mg Q6H PRN Administration NAUSEA AND/OR VOMITING Timolol Maleate 1 drop 04/05/17 22:00 04/10/17 10:28 Timoptic 0.5% OU 1 drop BID SAWYER Administration Laboratory Tests 04/07/17 04/09/17 04/10/17 05:35 11:10 09:45 Potassium 3.1 L 3.3 L Renin Activity Pending Aldosterone Pending cardio s1s2 reg pulm clear GI soft ext neg edema neuro awake and alert skin neg rash Impression 1. dehydration 2. hypokalemia 3. vomiting 4. enlarged pancreatic head 5. adrenal adenoma 6. transaminitis 7. DM 8. hyponatremia 9. HTN Plan - renal function is stable - replace potassium - pt is being transferred to [facility] today - if not transferred sent plasma and urine osm along with urine potassium - monitor lytes - workup in progress Dr Mark
[2017-04-10] MEDS ORDERED: SODIUM CHLORIDE 0.9%/KCL 1,000 ML IV SCH (14:45)
--- NOTE | 2017-04-10 16:10 | PN ---
Progress Note (short form) - Note Progress Note: transfer to [facility] today at 5pm. RN of the pt and Hospitalist team aware. Problem List - Problems (1) Pancreatic enlargement Code(s): K86.9 - DISEASE OF PANCREAS, UNSPECIFIED (2) Elevated liver enzymes Code(s): R74.8 - ABNORMAL LEVELS OF OTHER SERUM ENZYMES (3) Hypokalemia Code(s): E87.6 - HYPOKALEMIA (4) Adrenal adenoma Code(s): D35.00 - BENIGN NEOPLASM OF UNSPECIFIED ADRENAL GLAND
[2017-04-10 17:01] VITALS: BP 120/70; PULSE 66; TEMP 98.1
--- NOTE | 2017-04-10 20:52 | DS ---
Physical Exam: SUBJECTIVE: Patient seen and examined Unable to keep anything down. No fever or chills, no shortness of breath. OBJECTIVE: Vital Signs Temperature 98.1 F 04/10/17 17:00 Pulse Rate 66 04/10/17 17:00 Respiratory Rate 20 04/10/17 17:00 Blood Pressure 120/70 04/10/17 17:00 O2 Sat by Pulse Oximetry (%) 97 04/10/17 16:00 GENERAL: The patient is awake, alert, and fully oriented, in no acute distress. Very nice gentleman HEAD: Normal with no signs of trauma. EYES: PERRL, extraocular movements intact, sclera anicteric, conjunctiva clear. No ptosis. ENT: Ears normal, nares patent, oropharynx clear without exudates, moist mucous membranes. NECK: Trachea midline, full range of motion, supple. LUNGS: Breath sounds equal, clear to auscultation bilaterally, no wheezes, no crackles, no accessory muscle use. HEART: Regular rate and rhythm, S1, S2 without murmur, rub or gallop. ABDOMEN: Soft, nontender, nondistended, normoactive bowel sounds, no guarding, no rebound, no hepatosplenomegaly, no masses appreciated. EXTREMITIES: 2+ pulses, warm, well-perfused, no edema. NEUROLOGICAL: Cranial nerves II through XII grossly intact. Normal speech, gait not observed. PSYCH: Normal mood, normal affect. SKIN: Warm, dry, normal turgor, no rashes or lesions noted LABS Laboratory Results - last 24 hr 04/09/17 04/10/17 04/10/17 22:26 06:33 09:45 Potassium 3.3 L POC Glucometer 110 163 04/10/17 11:39 Potassium POC Glucometer 123 CBCD WBC 7.2 K/mm3 (4.0-10.0) 04/06/17 05:35 RBC 4.64 M/mm3 (4.00-5.60) 04/06/17 05:35 Hgb 13.9 GM/dL (11.7-16.9) 04/06/17 05:35 Hct 41.1 % (35.4-49) 04/06/17 05:35 MCV 88.8 fl (80-96) 04/06/17 05:35 MCHC 33.8 g/dl (32.0-35.9) 04/06/17 05:35 RDW 14.4 % (11.9-15.9) 04/06/17 05:35 Plt Count 208 K/MM3 (134-434) D 04/06/17 05:35 MPV 7.1 fl (7.5-11.1) L 04/06/17 05:35 CMP Sodium 139 mmol/L (136-145) 04/09/17 11:10 Potassium 3.3 mmol/L (3.5-5.1) L 04/10/17 09:45 Chloride 96 mmol/L (98-107) L 04/09/17 11:10 Carbon Dioxide 37 mmol/L (21-32) H 04/09/17 11:10 Anion Gap 6 (8-16) L 04/09/17 11:10 BUN 15 mg/dL (7-18) 04/09/17 11:10 Creatinine 1.1 mg/dL (0.7-1.3) D 04/09/17 11:10 Creat Clearance w eGFR > 60 (>60) 04/08/17 07:31 Random Glucose 121 mg/dL (74-106) H D 04/09/17 11:10 Calcium 9.1 mg/dL (8.5-10.1) 04/09/17 11:10 Total Bilirubin 1.6 mg/dL (0.2-1.0) H 04/08/17 07:31 AST 316 U/L (15-37) H D 04/08/17 07:31 ALT 376 U/L (12-78) H D 04/08/17 07:31 Alkaline Phosphatase 202 U/L (45-117) H 04/08/17 07:31 Total Protein 6.3 g/dl (6.4-8.2) L 04/08/17 07:31 Albumin 3.2 g/dl (3.4-5.0) L 04/08/17 07:31 CARDIAC ENZYMES Creatine Kinase 402 IU/L (39-308) H 04/05/17 10:54 Troponin I < 0.02 ng/ml (0.00-0.05) 04/05/17 10:54 Home Medications Medication Instructions Recorded Carvedilol 6.25 mg PO BID 12/20/12 Amlodipine Besylate 10 mg PO DAILY 03/24/17 Dorzolamide HCl/Timolol Maleat 10 ml OP DAILY 03/24/17 [Cosopt Eye Drops] Enalapril Maleate [Vasotec -] 10 mg PO BID 03/24/17 Docusate Sodium [Colace -] 300 mg PO HS #30 capsule 03/26/17 Docusate Sodium [Colace -] 300 mg PO HS #100 cap 04/09/17 Metoclopramide HCl Injection 5 mg IVPB Q6H PRN #0 vial 04/09/17 [Reglan Injection -] Clinical history: Rule out obstruction. Comparison: None. Contiguous transaxial images were obtained from the diaphragmatic domes and pubic symphysis after the administration of with oral and without IV contrast. Lung bases: Mild atelectatic changes and small granuloma in the left posterior costophrenic sulcus. Bone: Osteopenia, scoliosis and degenerative changes. Anterior slippage L4 on L5. Liver: Hepatic calcified granuloma. Gallbladder: Possible hyperdense contracted gallbladder. It was seen on prior ultrasound of 2016. Biliary tree: Negative. Spleen: Small splenic calcifications. Small accessory spleen. Pancreas: Enlarged pancreatic head to approximately 4.9 cm in AP dimension x 4.2 cm in width. It is difficult to determine the exact dimensions. Please correlate with additional imaging such as MRI or pancreatic protocol CT. Adrenals: Bilateral hypodense adrenal masses, the right measuring 3.8 x 0.9 cm and the left 4.2 x 1.4 cm. These most likely represent adenomas. Kidneys: Small upper pole medial capsular or subcapsular calcification. Pelvis: Calcification of the vas deferens which is often seen with diabetics. Prostatic enlargement with calcifications. Incompletely distended bladder with prominent bladder wall. Bowel: Negative, including the appendix. No small bowel obstruction or ascites seen.. Other: Prominence of the distal esophageal wall with small hiatal hernia. Small umbilical hernia with fat. Impression: No bowel obstruction seen. Enlarged pancreatic head for which MRI or pancreatic protocol CT scan is needed. Bilateral adrenal adenoma. Hypodense contracted gallbladder. Other findings as above. Clinical correlation advised. US renal: Acute renal insufficiency Renal ultrasound The right kidney measures 10 cm in sagittal length and the left kidney measured 11.7 cm. Both kidneys appear unremarkable. Visualized portion of the liver is slightly hyperechoic. Rule out mild fatty infiltration. Please correlate with liver enzymes. Impression: Both kidneys appear morphologically unremarkable without evidence of hydronephrosis. HOSPITAL COURSE: Date of Admission:04/06/17 Date of Discharge: 04/10/17 Patient is a 66 yo M with a PMHx of HTN, DM2, HLD who presented with 4 weeks of progressively worsening nausea/vomiting placed on observation for intractable vomiting and ISAAC. Patient is being transferred to [facility] today. # Enlarged Pancreatic head on CT scan 4.9cm x 4.2cm ,GI consult appreciated. MRCP result: confirmed suspected pancreatic mass with involvement of duodenum / vascular involvement as well. Stomach described as fluid filled as well suggestive of gastric outlet obstruction. Discussed with The patient the result of MRCP, discussed with GI regarding to transfer to tertiary care center to [facility] for further evaluation / Treatment including possible surgery or stenting to alleviate obstrusction. Discussed with Oncologist ,will arrange the transfer. # Persistent Intermittent vomiting will place the patient to clear liquid diet, if patient does not tolerate then NGT,npo , IV hydration # ISAAC improved due to having dehydration on IVF @ 125ml/hr. Repeat CMP in AM. # Acute transaminitis CT scan abdomen and pelvis as above. Trend LFTs # T2DM most likely due to a mass on the pancreatic head. Hem/onc consult Ca19.9 1074,, CEA 1.2 , ca125 11.5 # Acute severe Hypokalemia, being repleted with IV potassium s/p IV Potassium riders. # Acute Lactic acidosis improved. # Intractable Nausea and vomiting will continue IVF, NPO for now, advance diet as tolerated. DVT Px: early ambulation, SCDs Tx to [facility].Discussed with oncologist Minutes to complete discharge: 40 Discharge Summary Reason For Visit: VOMITING,HYPOKALEMIA,ACUTE KIDNEY INJURY Current Active Problems ISAAC (acute kidney injury) (Acute) Adrenal adenoma (Acute) Elevated liver enzymes (Acute) HTN (hypertension) (Acute) Hypokalemia (Acute) Hyponatremia (Acute) IDDM (insulin dependent diabetes mellitus) (Acute) Lactic acidosis (Acute) Pancreatic enlargement (Acute) Vomiting (Acute) - Instructions Referrals: Henrique Akers DO [Staff Physician] - Jose Diaz MD, MD [Primary Care Provider] - Disposition: TRANSFER ACUTE CARE/OTHER HOSP - Home Medications Comprehensive Discharge Medication List: Ambulatory Orders Carvedilol 6.25 mg PO BID 12/20/12 Amlodipine Besylate 10 mg PO DAILY 03/24/17 Dorzolamide HCl/Timolol Maleat [Cosopt Eye Drops] 10 ml OP DAILY 03/24/17 Enalapril Maleate [Vasotec -] 10 mg PO BID 03/24/17 Docusate Sodium [Colace -] 300 mg PO HS #30 capsule 03/26/17 Docusate Sodium [Colace -] 300 mg PO HS #100 cap 04/09/17 Metoclopramide HCl Injection [Reglan Injection -] 5 mg IVPB Q6H PRN #0 vial 02/18 This patient is new to me today: No Emergency Visit: Yes ED Registration Date: 04/06/17 Care time: The patient presented to the Emergency Department on the above date and was hospitalized for further evaluation of their emergent condition. Critical Care patient: No - Discharge Referral Referred to [facility] No
[2017-04-13 16:30] LABS: RENIN ACTIVITY(PRA) 1.34 ng/mL/hr (0.167-5.380)
== END 2017-04-10 17:28 | disposition short-term general hospital (02) | DRG 375 ==
LOC: JER 09:42 → JERBED 15:13 → INTOOBSV 15:13 → UNDOADMOB 15:13 → JERBED 18:22 → J6S 19:10 → OBSVTOIN 04-06 16:00
PROVIDERS: ADMIT Internal Medicine; ATTEND Internal Medicine
DX: D49.0 Neoplasm of unspecified behavior of digestive system (principal); N17.9 Acute kidney failure, unspecified; E87.2 Acidosis; E87.1 Hypo-osmolality and hyponatremia; E11.9 Type 2 diabetes mellitus without complications; R74.0 Nonspecific elevation of levels of transaminase and lactic acid dehydrogenase [LDH]; K86.9 Disease of pancreas, unspecified; E87.6 Hypokalemia; R11.2 Nausea with vomiting, unspecified; Z79.4 Long term (current) use of insulin; I10 Essential (primary) hypertension; E86.0 Dehydration; E78.5 Hyperlipidemia, unspecified
CPT/HCPCS: 36415; 71250-TC; 74020-TC; 74176-TC; 74182-TC; 76775-TC; 80048; 80053; 80307; 81003; 81015; 82088; 82248; 82378; 82436; 82533; 82553; 82570; 83036; 83605; 83690; 83735; 83930; 84100; 84132; 84133; 84244; 84300; 84439; 84443; 84481; 84484; 85025; 85610; 85730; 86301; 86304; 87040; 87086; 93005; 93010; 97116-GP; 97161-GP; 99285-25; G0378; Q9967

== ENCOUNTER 2017-05-30 07:34 | Day surgery (SDC) | payer OTHER ==
[2017-05-30] MEDS ORDERED: SODIUM CHLORIDE 1,000 ML IV ONE (08:00)
[2017-05-30] MEDS ORDERED: SODIUM CHLORIDE 250 ML IV ONE ×2 (08:00→09:30)
[2017-05-30] MEDS ORDERED: DEXAMETHASONE INJECTION 10 MG in SODIUM CHLORIDE 50 ML IVPB ONE (08:30)
[2017-05-30] MEDS ORDERED: ONDANSETRON INJECTION 12 MG in SODIUM CHLORIDE 50 ML IVPB ONE (08:30)
[2017-05-30] MEDS ORDERED: PALONOSETRON HCL 0.25 MG in SODIUM CHLORIDE 50 ML IVPB ONE (08:30)
[2017-05-30] MEDS ORDERED: SODIUM CHLORIDE IV ONE ×2 (09:00)
[2017-05-30] MEDS ORDERED: GEMCITABINE HCL IV ONE ×2 (09:00)
[2017-05-30 12:11] LABS: BASOPHIL 0.9 % (0-2.0); EOSINOPHIL 3.7 % (0-4.5); MCH 30.5 pg (25.7-33.7); MCHC 34.3 g/dl (32.0-35.9); NEUTROPHILS 58.4 % (42.8-82.8); PLATELET COUNT 545 K/MM3 (134-434); RDW 15.3 % (11.9-15.9); WHITE BLOOD COUNT 9.2 K/mm3 (4.0-10.0)
[2017-05-30 13:21] LABS: ALBUMIN 3.1 g/dl (3.4-5.0); ANION GAP 7 (8-16); BILIRUBIN,DIRECT 1.5 mg/dL (0.0-0.2); CALCIUM 9.2 mg/dL (8.5-10.1); CO2 27 mmol/L (21-32); CREATININE 0.8 mg/dL (0.7-1.3); GLUCOSE,RANDOM 172 mg/dL (74-106); MAGNESIUM 1.7 mg/dL (1.8-2.4); SGOT/AST 45 U/L (15-37); SGPT/ALT 49 U/L (12-78)
[2017-05-30 13:23] LABS: ALK PHOS 173 U/L (45-117); BILIRUBIN,TOTAL 1.6 mg/dL (0.2-1.0); TOT PROT 7.2 g/dl (6.4-8.2)
[2017-05-30 16:08] VITALS: TEMP 98.2
[2017-05-30] MEDS ORDERED: PORTA CATH FLUSH 10 ML IVPUSH ONE (16:08)
[2017-05-30 16:23] VITALS: BP 152/81; PULSE 62
== END 2017-05-30 16:25 | disposition home or self-care (01) ==
LOC: JONCCHEMO 07:34 → J7W 13:04 → JONCCHEMO 16:25
PROVIDERS: ATTEND Internal Medicine Hematology & Oncology
DX: Z51.11 Encounter for antineoplastic chemotherapy (principal); C25.9 Malignant neoplasm of pancreas, unspecified
CPT/HCPCS: 36415; 80053; 80076; 82378; 83735; 85025; 86304; 96361; 96367; 96375; 96413

== ENCOUNTER 2017-06-06 07:27 | Day surgery (SDC) | payer OTHER ==
[2017-06-06] MEDS ORDERED: ONDANSETRON INJECTION 12 MG in SODIUM CHLORIDE 50 ML IVPB ONE (10:00)
[2017-06-06] MEDS ORDERED: DEXAMETHASONE INJECTION 10 MG in SODIUM CHLORIDE 50 ML IVPB ONE (10:00)
[2017-06-06] MEDS ORDERED: SODIUM CHLORIDE 1,000 ML IV ONE (10:00)
[2017-06-06] MEDS ORDERED: SODIUM CHLORIDE IV ONE (10:30)
[2017-06-06] MEDS ORDERED: GEMCITABINE HCL IV ONE (10:30)
[2017-06-06 10:51] LABS: BASOPHIL 0.6 % (0-2.0); MCH 30.3 pg (25.7-33.7); MCHC 33.8 g/dl (32.0-35.9); MEAN CELL VOLUME 89.5 fl (80-96); PLATELET COUNT 359 K/MM3 (134-434); RDW 15.6 % (11.9-15.9); WHITE BLOOD COUNT 6.3 K/mm3 (4.0-10.0)
[2017-06-06 11:23] LABS: ALK PHOS 138 U/L (45-117); ANION GAP 6 (8-16); BILIRUBIN,DIRECT 1.2 mg/dL (0.0-0.2); BILIRUBIN,TOTAL 1.3 mg/dL (0.2-1.0); CALCIUM 8.9 mg/dL (8.5-10.1); CO2 29 mmol/L (21-32); CPK 55 IU/L (39-308); CREATININE 0.8 mg/dL (0.7-1.3); GLUCOSE,RANDOM 155 mg/dL (74-106); SGOT/AST 30 U/L (15-37); SGPT/ALT 35 U/L (12-78); TOT PROT 7.3 g/dl (6.4-8.2)
[2017-06-06 15:50] VITALS: BP 124/78; PULSE 78; TEMP 97.5
== END 2017-06-06 13:45 | disposition home or self-care (01) ==
LOC: JONCCHEMO 07:27 → J7W 11:19 → JONCCHEMO 13:45
PROVIDERS: ATTEND Internal Medicine Hematology & Oncology
DX: Z51.11 Encounter for antineoplastic chemotherapy (principal); C25.9 Malignant neoplasm of pancreas, unspecified
CPT/HCPCS: 36415; 80053; 80076; 83735; 85025; 96361; 96367; 96375; 96413

== ENCOUNTER 2017-06-13 07:37 | Day surgery (SDC) | payer OTHER ==
[2017-06-13] MEDS ORDERED: SODIUM CHLORIDE 1,000 ML IV ONE (08:00)
[2017-06-13] MEDS ORDERED: DEXAMETHASONE INJECTION 10 MG in SODIUM CHLORIDE 50 ML IVPB ONE (08:30)
[2017-06-13] MEDS ORDERED: ONDANSETRON INJECTION 12 MG in SODIUM CHLORIDE 50 ML IVPB ONE (08:30)
[2017-06-13] MEDS ORDERED: GEMCITABINE HCL IV ONE (09:00)
[2017-06-13] MEDS ORDERED: SODIUM CHLORIDE IV ONE (09:00)
[2017-06-13 11:40] LABS: BASOPHIL 0.2 % (0-2.0); EOSINOPHIL 0.3 % (0-4.5); MCHC 33.6 g/dl (32.0-35.9); MEAN CELL VOLUME 89.4 fl (80-96); NEUTROPHILS 44.2 % (42.8-82.8); PLATELET COUNT 205 K/MM3 (134-434); RDW 15.8 % (11.9-15.9); WHITE BLOOD COUNT 6.1 K/mm3 (4.0-10.0)
[2017-06-13 11:41] LABS: MEAN PLT VOLUME 5.4 fl (7.5-11.1)
[2017-06-13 12:01] LABS: INR 1.44 (0.82-1.09); PROTHROMBIN TIME (PATIENT) 15.8 SEC (9.98-11.88)
[2017-06-13 12:07] LABS: ALBUMIN 3.1 g/dl (3.4-5.0); ALK PHOS 151 U/L (45-117); ANION GAP 11 (8-16); BILIRUBIN,DIRECT 0.9 mg/dL (0.0-0.2); CALCIUM 8.8 mg/dL (8.5-10.1); CO2 25 mmol/L (21-32); CREATININE 0.9 mg/dL (0.7-1.3); GLUCOSE,RANDOM 147 mg/dL (74-106); SGOT/AST 34 U/L (15-37); SGPT/ALT 53 U/L (12-78); TOT PROT 7.3 g/dl (6.4-8.2)
[2017-06-13 13:21] VITALS: TEMP 97.4
[2017-06-13] MEDS ORDERED: PORTA CATH FLUSH 10 ML IVPUSH ONE (13:24)
[2017-06-13 17:12] VITALS: BP 123/67; PULSE 66
== END 2017-06-13 15:43 | disposition home or self-care (01) ==
LOC: JONCCHEMO 07:37 → J7W 12:28 → JONCCHEMO 15:43
PROVIDERS: ATTEND Internal Medicine Hematology & Oncology
DX: Z51.11 Encounter for antineoplastic chemotherapy (principal); C25.9 Malignant neoplasm of pancreas, unspecified
CPT/HCPCS: 36415; 80053; 80076; 83735; 85025; 85610; 85730; 86301; 96361; 96375; 96413; 97163-GP

== ENCOUNTER 2017-06-27 07:40 | Day surgery (SDC) | payer OTHER ==
[2017-06-27] MEDS ORDERED: SODIUM CHLORIDE 1,000 ML IV ONE (10:00)
[2017-06-27] MEDS ORDERED: ONDANSETRON INJECTION 12 MG in SODIUM CHLORIDE 50 ML IVPUSH ONE (10:00)
[2017-06-27] MEDS ORDERED: DEXAMETHASONE INJECTION 10 MG in SODIUM CHLORIDE 50 ML IVPUSH ONE (10:00)
[2017-06-27] MEDS ORDERED: GEMCITABINE HCL IV ONE (10:30)
[2017-06-27] MEDS ORDERED: SODIUM CHLORIDE IV ONE (10:30)
[2017-06-27 11:03] VITALS: TEMP 98.2
[2017-06-27 11:17] LABS: BASOPHIL 1.3 % (0-2.0); EOSINOPHIL 1.4 % (0-4.5); MCHC 33.4 g/dl (32.0-35.9); MEAN CELL VOLUME 89.7 fl (80-96); MEAN PLT VOLUME 5.9 fl (7.5-11.1); NEUTROPHILS 58.7 % (42.8-82.8); PLATELET COUNT 554 K/MM3 (134-434); RDW 16.2 % (11.9-15.9); WHITE BLOOD COUNT 9.3 K/mm3 (4.0-10.0)
[2017-06-27 11:48] LABS: ANION GAP 9 (8-16); BILIRUBIN,DIRECT 0.5 mg/dL (0.0-0.2); BILIRUBIN,TOTAL 0.5 mg/dL (0.2-1.0); CALCIUM 8.8 mg/dL (8.5-10.1); CO2 27 mmol/L (21-32); CREATININE 0.7 mg/dL (0.7-1.3); GLUCOSE,RANDOM 153 mg/dL (74-106); MAGNESIUM 2.1 mg/dL (1.8-2.4); SGOT/AST 21 U/L (15-37); SGPT/ALT 33 U/L (12-78); TOT PROT 6.7 g/dl (6.4-8.2)
[2017-06-27 11:49] LABS: ALK PHOS 150 U/L (45-117)
[2017-06-27] MEDS ORDERED: PORTA CATH FLUSH 10 ML IVPUSH PRN (12:34)
[2017-06-27] MEDS ORDERED: ALTEPLASE 2 MG VIAL ONE (14:18)
[2017-06-27] MEDS ORDERED: ALTEPLASE 2 MG VIAL CVP ONE (15:15)
[2017-06-27 17:28] VITALS: BP 132/57; PULSE 77
== END 2017-06-27 15:35 | disposition home or self-care (01) ==
LOC: JONCCHEMO 07:40 → J7W 11:47 → JONCCHEMO 15:35
PROVIDERS: ATTEND Internal Medicine Hematology & Oncology
DX: Z51.11 Encounter for antineoplastic chemotherapy (principal); C25.9 Malignant neoplasm of pancreas, unspecified
CPT/HCPCS: 36415; 80053; 80076; 83735; 85025; 96361; 96375; 96413; J2997

== ENCOUNTER 2017-07-06 07:07 | Day surgery (SDC) | payer OTHER ==
[2017-07-06] MEDS ORDERED: SODIUM CHLORIDE 1,000 ML IV ONE (10:00)
[2017-07-06] MEDS ORDERED: ONDANSETRON INJECTION 12 MG in SODIUM CHLORIDE 50 ML IVPB ONE (10:00)
[2017-07-06] MEDS ORDERED: DEXAMETHASONE INJECTION 10 MG in SODIUM CHLORIDE 50 ML IVPB ONE (10:00)
[2017-07-06] MEDS ORDERED: GEMCITABINE HCL IV ONE (10:30)
[2017-07-06] MEDS ORDERED: SODIUM CHLORIDE IV ONE (10:30)
[2017-07-06 12:11] LABS: BASOPHIL 0.6 % (0-2.0); EOSINOPHIL 2.7 % (0-4.5); MCH 29.6 pg (25.7-33.7); MCHC 33.2 g/dl (32.0-35.9); MEAN CELL VOLUME 89.3 fl (80-96); NEUTROPHILS 53.7 % (42.8-82.8); PLATELET COUNT 391 K/MM3 (134-434); RDW 16.6 % (11.9-15.9); WHITE BLOOD COUNT 8.2 K/mm3 (4.0-10.0)
[2017-07-06 12:15] LABS: MEAN PLT VOLUME 5.7 fl (7.5-11.1)
[2017-07-06 12:37] LABS: ALBUMIN 3.1 g/dl (3.4-5.0); ALK PHOS 128 U/L (45-117); ANION GAP 8 (8-16); BILIRUBIN,DIRECT 0.4 mg/dL (0.0-0.2); BILIRUBIN,TOTAL 0.5 mg/dL (0.2-1.0); CALCIUM 8.7 mg/dL (8.5-10.1); CO2 27 mmol/L (21-32); CREATININE 0.7 mg/dL (0.7-1.3); GLUCOSE,RANDOM 141 mg/dL (74-106); MAGNESIUM 2.1 mg/dL (1.8-2.4); SGOT/AST 22 U/L (15-37); SGPT/ALT 33 U/L (12-78); TOT PROT 6.6 g/dl (6.4-8.2)
[2017-07-06 15:49] VITALS: TEMP 97.9
[2017-07-06 16:03] VITALS: BP 126/69; PULSE 64
[2017-07-06] MEDS ORDERED: PORTA CATH FLUSH 10 ML IVPUSH ONE (16:03)
== END 2017-07-06 15:45 | disposition home or self-care (01) ==
LOC: JONCCHEMO 07:07 → J7W 13:07 → JONCCHEMO 15:45
PROVIDERS: ATTEND Internal Medicine Hematology & Oncology
DX: Z51.11 Encounter for antineoplastic chemotherapy (principal); C25.9 Malignant neoplasm of pancreas, unspecified
CPT/HCPCS: 36415; 80053; 80076; 83735; 85025; 96361; 96375; 96413

== ENCOUNTER 2017-08-15 08:15 | Day surgery (SDC) | payer OTHER ==
[2017-08-11 15:39] VITALS: BMI 30.5
[2017-08-15 08:44] VITALS: TEMP 97.3
[2017-08-15 16:20] VITALS: PULSE 60
[2017-08-15 17:07] VITALS: BP 132/75
--- NOTE | 2017-08-16 15:54 | PATH ---
Surgical Pathology Report Patient Name: EVELYN CHAUDHRY Med. Rec. #: [id number] /Age/Gender: 1950 (Age: 66) / M Account: [id number] Location: RADIOLOGY Taken: 08/15/2017 Received: 08/15/2017 Reported: 08/16/2017 Physicians: Skinny Mcnamara M.D. Specimen(s) Received LIVER BIOPSY Clinical History 66-year-old male with pancreatic cancer and status post duodenal and biliary stent now with hepatic lesions Final Diagnosis LIVER, CT GUIDED NEEDLE CORE BIOPSY: MACROVESICULAR STEATOHEPATITIS, MODERATE (GRADE 2 OF 3). TRICHROME STAIN HIGHLIGHTS PERISINUSOIDAL/PERICELLULAR FIBROSIS WITH FOCAL PERIPORTAL FIBROSIS (STAGE 2 OF 4). NO SIDEROSIS IDENTIFIED WITH IRON STAIN. AREAS SUGGESTIVE OF BILIARY OBSTRUCTION PRESENT. NO METASTASIS FROM THE PATIENT'S PREVIOUSLY DIAGNOSED PANCREATIC ADENOCARCINOMA IDENTIFIED. Comment: This case was discussed with Dr. Mendez on August 16, 2017. Electronically Signed Federico Lara M.D. Gross Description Received in formalin labeled "liver biopsy," are 3 keen, cylindrical portions of soft tissue ranging from 0.3-1.1 cm in length and averaging 0.1 cm diameter. The specimens are submitted in toto in one cassette. 08/15/201708/15/2017
== END 2017-08-15 17:00 | disposition home or self-care (01) ==
LOC: JRADIR 08:15
PROVIDERS: ATTEND Internal Medicine Hematology & Oncology
PROC: BF2 Imaging, Hepatobiliary System and Pancreas, Computerized Tomography (CT Scan) (ICD-10-PCS; principal; 2017-08-15)
PROC: 0FB03ZX Excision of Liver, Percutaneous Approach, Diagnostic (ICD-10-PCS; 2017-08-15)
DX: K76.0 Fatty (change of) liver, not elsewhere classified (principal); C25.9 Malignant neoplasm of pancreas, unspecified
CPT/HCPCS: 47000; 76705-TC; 88307-TC; 88313-TC

== ENCOUNTER 2017-12-14 07:27 | Day surgery (SDC) | payer OTHER ==
[2017-12-14] MEDS ORDERED: DEXAMETHASONE SOD PHOSPHATE 10 MG/1 ML VIAL IVPUSH ONE (08:00)
[2017-12-14] MEDS ORDERED: PALONOSETRON HCL 0.25 MG/5 ML VIAL IVPUSH ONE (08:00)
[2017-12-14] MEDS ORDERED: PACLITAXEL PROTEIN BOUND IVPB ONE (08:30)
[2017-12-14] MEDS ORDERED: SODIUM CHLORIDE IVPB ONE (08:30)
[2017-12-14] MEDS ORDERED: GEMCITABINE HCL IV ONE (09:00)
[2017-12-14] MEDS ORDERED: SODIUM CHLORIDE IV ONE (09:00)
[2017-12-14 10:43] LABS: BASO % 0.9 % (0-2.0); EOS % 3.9 % (0-4.5); HEMATOCRIT 38.9 % (35.4-49); LYMPH % 27.5 % (8-40); MCH 29.7 pg (25.7-33.7); MCHC 33.5 g/dl (32.0-35.9); MEAN CELL VOLUME 88.7 fl (80-96); MEAN PLT VOLUME 6.1 fl (7.5-11.1); MONO % 8.2 % (3.8-10.2); NEUT % 59.5 % (42.8-82.8); PLATELET COUNT 331 K/MM3 (134-434); RBC 4.39 M/mm3 (4.00-5.60); RDW 15.1 % (11.9-15.9)
[2017-12-14 11:11] LABS: ALBUMIN 3.3 g/dl (3.4-5.0); ALK PHOS 148 U/L (45-117); ANION GAP 7 (8-16); BILIRUBIN,DIRECT 0.2 mg/dL (0.0-0.2); BILIRUBIN,TOTAL 0.6 mg/dL (0.2-1.0); BLOOD UREA NITROGEN 8 mg/dL (7-18); CALCIUM 9.3 mg/dL (8.5-10.1); CHLORIDE 101 mmol/L (98-107); CO2 31 mmol/L (21-32); CREATININE 0.8 mg/dL (0.7-1.3); GLUCOSE,RANDOM 133 mg/dL (74-106); MAGNESIUM 2.4 mg/dL (1.8-2.4); SGOT/AST 31 U/L (15-37); SGPT/ALT 27 U/L (12-78); SODIUM 139 mmol/L (136-145); TOT PROT 7.5 g/dl (6.4-8.2)
[2017-12-14 15:04] VITALS: BP 131/70; PULSE 62; TEMP 97.8
== END 2017-12-14 14:20 | disposition home or self-care (01) ==
LOC: JONCCHEMO 07:27 → J7W 11:42 → JONCCHEMO 14:20
PROVIDERS: ATTEND Internal Medicine Hematology & Oncology
DX: Z51.11 Encounter for antineoplastic chemotherapy (principal); C25.9 Malignant neoplasm of pancreas, unspecified
CPT/HCPCS: 36415; 80053; 80076; 83735; 85025; 86301; 96367; 96375; 96413; 96417; J1100; J2469; J9264

== ENCOUNTER 2017-12-21 07:31 | Day surgery (SDC) | payer OTHER ==
[2017-12-21] MEDS ORDERED: DEXAMETHASONE SOD PHOSPHATE 10 MG/1 ML VIAL IVPUSH ONE (10:00)
[2017-12-21] MEDS ORDERED: PALONOSETRON HCL 0.25 MG/5 ML VIAL IVPUSH ONE (10:00)
[2017-12-21] MEDS ORDERED: PACLITAXEL PROTEIN BOUND IVPB ONE (10:30)
[2017-12-21] MEDS ORDERED: SODIUM CHLORIDE IVPB ONE (10:30)
[2017-12-21] MEDS ORDERED: GEMCITABINE HCL IV ONE (11:00)
[2017-12-21] MEDS ORDERED: SODIUM CHLORIDE IV ONE (11:00)
[2017-12-21 11:39] LABS: BASO % 0.4 % (0-2.0); HEMATOCRIT 37.1 % (35.4-49); HEMOGLOBIN 12.4 GM/dL (11.7-16.9); LYMPH % 31.8 % (8-40); MCH 29.4 pg (25.7-33.7); MCHC 33.4 g/dl (32.0-35.9); MEAN CELL VOLUME 88.1 fl (80-96); MEAN PLT VOLUME 6.5 fl (7.5-11.1); MONO % 6.9 % (3.8-10.2); NEUT % 59.9 % (42.8-82.8); PLATELET COUNT 171 K/MM3 (134-434); RBC 4.22 M/mm3 (4.00-5.60); RDW 14.3 % (11.9-15.9)
[2017-12-21 11:59] LABS: ALBUMIN 2.9 g/dl (3.4-5.0); ALK PHOS 135 U/L (45-117); ANION GAP 6 (8-16); BILIRUBIN,DIRECT 0.3 mg/dL (0.0-0.2); BILIRUBIN,TOTAL 0.5 mg/dL (0.2-1.0); BLOOD UREA NITROGEN 8 mg/dL (7-18); CALCIUM 8.4 mg/dL (8.5-10.1); CHLORIDE 102 mmol/L (98-107); CO2 28 mmol/L (21-32); CREATININE 0.7 mg/dL (0.7-1.3); GLUCOSE,RANDOM 148 mg/dL (74-106); MAGNESIUM 1.9 mg/dL (1.8-2.4); POTASSIUM 3.9 mmol/L (3.5-5.1); SGOT/AST 27 U/L (15-37); SGPT/ALT 26 U/L (12-78); SODIUM 136 mmol/L (136-145); TOT PROT 6.9 g/dl (6.4-8.2)
[2017-12-21 15:35] VITALS: TEMP 98.5
[2017-12-21 15:38] VITALS: BP 150/87; PULSE 65
[2017-12-21] MEDS ORDERED: PORTA CATH FLUSH 10 ML IVPUSH ONE (15:45)
== END 2017-12-21 14:30 | disposition home or self-care (01) ==
LOC: JONCCHEMO 07:31 → J7W 12:07 → JONCCHEMO 14:30
PROVIDERS: ATTEND Internal Medicine Hematology & Oncology
DX: Z51.11 Encounter for antineoplastic chemotherapy (principal); C25.9 Malignant neoplasm of pancreas, unspecified
CPT/HCPCS: 36415; 80053; 80076; 83735; 85025; 86301; 96375; 96413; 96417; J1100; J2469; J9264

== ENCOUNTER 2017-12-28 07:20 | Day surgery (SDC) | payer OTHER ==
[2017-12-28] MEDS ORDERED: PALONOSETRON HCL 0.25 MG/5 ML VIAL IVPUSH ONE (10:00)
[2017-12-28] MEDS ORDERED: DEXAMETHASONE SOD PHOSPHATE 10 MG/1 ML VIAL IVPUSH ONE (10:00)
[2017-12-28 10:16] LABS: BASO % 0.2 % (0-2.0); EOS % 1.5 % (0-4.5); HEMATOCRIT 33.7 % (35.4-49); HEMOGLOBIN 11.4 GM/dL (11.7-16.9); LYMPH % 32.5 % (8-40); MCH 29.8 pg (25.7-33.7); MCHC 33.9 g/dl (32.0-35.9); MEAN CELL VOLUME 88.1 fl (80-96); MEAN PLT VOLUME 6.5 fl (7.5-11.1); MONO % 9.4 % (3.8-10.2); NEUT % 56.4 % (42.8-82.8); PLATELET COUNT 118 K/MM3 (134-434); RBC 3.83 M/mm3 (4.00-5.60); RDW 14.3 % (11.9-15.9); WHITE BLOOD COUNT 2.9 K/mm3 (4.0-10.0)
[2017-12-28] MEDS ORDERED: PACLITAXEL PROTEIN BOUND IVPB ONE ×3 (10:30→12:00)
[2017-12-28] MEDS ORDERED: SODIUM CHLORIDE IVPB ONE ×3 (10:30→12:00)
[2017-12-28 10:44] LABS: CHLORIDE 97 mmol/L (98-107); POTASSIUM 3.9 mmol/L (3.5-5.1); SODIUM 133 mmol/L (136-145)
[2017-12-28 10:48] LABS: ALBUMIN 2.7 g/dl (3.4-5.0); ANION GAP 9 (8-16); BILIRUBIN,DIRECT 0.3 mg/dL (0.0-0.2); BLOOD UREA NITROGEN 7 mg/dL (7-18); CALCIUM 7.9 mg/dL (8.5-10.1); CO2 27 mmol/L (21-32); CREATININE 0.8 mg/dL (0.7-1.3); GLUCOSE,RANDOM 197 mg/dL (74-106); MAGNESIUM 1.8 mg/dL (1.8-2.4); SGOT/AST 33 U/L (15-37)
[2017-12-28 10:50] LABS: ALK PHOS 140 U/L (45-117); BILIRUBIN,TOTAL 0.6 mg/dL (0.2-1.0); SGPT/ALT 31 U/L (12-78); TOT PROT 6.6 g/dl (6.4-8.2)
[2017-12-28] MEDS ORDERED: GEMCITABINE HCL IV ONE ×2 (11:00→12:30)
[2017-12-28] MEDS ORDERED: SODIUM CHLORIDE IV ONE ×2 (11:00→12:30)
[2017-12-28 12:05] VITALS: TEMP 97.6
[2017-12-28] MEDS ORDERED: PORTA CATH FLUSH 10 ML IVPUSH ONE (12:15)
[2017-12-28 14:42] VITALS: BP 127/73; PULSE 70
== END 2017-12-28 13:50 | disposition home or self-care (01) ==
LOC: JONCCHEMO 07:20 → J7W 11:37 → JONCCHEMO 13:50
PROVIDERS: ATTEND Internal Medicine Hematology & Oncology
DX: Z51.11 Encounter for antineoplastic chemotherapy (principal); C25.9 Malignant neoplasm of pancreas, unspecified
CPT/HCPCS: 36415; 80053; 80076; 83735; 85025; 96367; 96375; 96413; 96417; J1100; J2469; J9264

== ENCOUNTER 2017-12-29 07:38 | Day surgery (SDC) | payer OTHER ==
[2017-12-29] MEDS ORDERED: PEGFILGRASTIM 6 MG/0.6 ML DISP.SYRIN SQ ONE (11:00)
[2017-12-29 14:46] VITALS: BP 137/79; PULSE 91; TEMP 98
== END 2017-12-29 11:10 | disposition home or self-care (01) ==
LOC: JONCCHEMO 07:38 → J7W 10:31 → JONCCHEMO 11:10
PROVIDERS: ATTEND Internal Medicine Hematology & Oncology
PROC: 3E013GC Introduction of Other Therapeutic Substance into Subcutaneous Tissue, Percutaneous Approach (ICD-10-PCS; principal; 2017-12-29)
DX: C25.9 Malignant neoplasm of pancreas, unspecified (principal); Z76.89 Persons encountering health services in other specified circumstances
CPT/HCPCS: 96372; J2505

== ENCOUNTER 2018-07-07 16:57 | Inpatient (IN) | payer OTHER ==
--- NOTE | 2018-07-07 17:13 | PDOC ---
History of Present Illness - General Chief Complaint: Blood Pressure Problem Stated Complaint: BLOOD PRESSURE PROBLEM Time Seen by Provider: 07/07/18 17:12 - History of Present Illness Initial Comments: 07/07/18 17:36 The patient is a 67 year old male with a history of HTN, HLD, DM, Metastatic Pancreatic Cancer who presents for evaluation of lightheadedness and generalized weakness. The patient reports a 2 week history of worsening lightheadedness and generalized weakness. He notes that he has not been able to tolerated PO intake over the past 2 weeks and states that when he eats he gets extremely nauseated and vomits. He checked his blood pressure today and noted it to be 70s/50s prompting his presentation to the ED for further evaluation. He notes that he is currently not undergoing any chemotherapy or radiation. He also endorses some intermittent epigastric abdominal pain but otherwise denies fevers, chills, SOB, chest pain, or changes with urination or bowel movements. Past History - Past Medical History Allergies/Adverse Reactions: Allergies Allergy/AdvReac Type Severity Reaction Status Date / Time No Known Allergies Allergy Verified 07/07/18 17:03 Home Medications: Ambulatory Orders Ondansetron [Zofran -] 8 mg PO TID PRN 07/07/18 Oxycodone HCl 10 mg PO TID 07/07/18 Tamsulosin HCl [Flomax] 0.4 mg PO DAILY 07/07/18 Anemia: No Asthma: No Cancer: Yes (pancreatic 2017) CVA: No COPD: Yes Dementia: No Diabetes: Yes GI Disorders: Yes (chronic constipation) Disorders: No HTN: Yes Hypercholesterolemia: Yes Liver Disease: Yes (elevated) Seizures: No Thyroid Disease: No - Suicide/Smoking/Psychosocial Hx Smoking Status: Yes Smoking History: Unknown if ever smoked Have you smoked in the past 12 months: No Number of Cigarettes Smoked Daily: 0 If you are a former smoker, when did you quit?: 2003 Hx Alcohol Use: Yes (occasional) Drug/Substance Use Hx: No Substance Use Type: Marijuana Review of Systems - Review of Systems Comments:: 07/07/18 17:40 Constitutional: Fatigue. No fevers, chills, malaise HEENT: No Rhinorrhea, nasal congestion, visual changes Cardiovascular: Lightheadedness. No chest pain, syncope, palpitations Respiratory: No Cough, SOB, Hemoptysis, Gastrointestinal: Abdominal pain, nausea, vomiting. No Constipation, Diarrhea, Melena Genitourinary: No Dysuria, Frequency, Urgency, Hesitancy, Hematuria, Flank pain Musculoskeletal: No Myalgia, arthralgia Skin: No rashes, itching, bruising, pallor Neurologic: No Headache, Dizziness, Numbness, Weakness, or Tingling Psychiatric: No Hallucinations. No SI or HI *Physical Exam - Vital Signs Last Vital Signs Temp Pulse Resp BP Pulse Ox 97.8 F 89 18 97/57 L 99 07/07/18 17:06 07/07/18 17:06 07/07/18 17:06 07/07/18 17:06 07/07/18 17:06 - Physical Exam Comments: 07/07/18 17:41 General Appearance: Nourished. No Apparent Distress HEENT: No Pharyngeal Erythema, Tonsillar Exudate, Tonsillar Erythema Neck: No Cervical Lymphadenopathy Respiratory/Chest: Lungs Clear, Normal Breath Sounds. No Crackles, Rales, Rhonchi, Wheezing Cardiovascular: Regular Rhythm, Regular Rate. No Murmur, Gallops, Rubs Gastrointestinal/Abdominal: Normal Bowel Sounds, Soft. Epigastric tenderness to palpation on exam. No Guarding, Rebound Musculoskeletal: No CVA Tenderness Extremity: Normal Capillary Refill Integumentary: Normal Color, Dry, Warm Neurologic: Fully Oriented, Alert, Normal Mood/Affect, Normal Response, ED Treatment Course - LABORATORY CBC & Chemistry Diagram: 07/07/18 18:00 07/07/18 19:00 Medical Decision Making - Medical Decision Making 07/07/18 17:46 The patient is a 67 year old male with a history of HTN, HLD, DM, Metastatic Pancreatic Cancer who presents for evaluation of lightheadedness and generalized weakness. Differential includes but is not limited to: Hypotension , Dehydration, Obstruction, Worsening metastatic disease, Infectious, Metabolic Derangement. Given the patient's history and physical exam, we will obtain a cbc, cmp, lipase, ammonia, ekg, CT abdomen pelvis to evaluate further for possible etiologies. We will treat the patient with iv fluids in the meantime and continue to monitor while here in the ED. 07/07/18 23:56 CBC is unremarkable. CMP demonstrates hypokalemia to 2.3. UA is unremarkable. There are no ekg changes related to the hypokalemia. CT abdomen/pelvis does not demonstrate any acute pathology as preliminarily read by our director of compensation radiologist. We will continue to replete the patient's potassium through iv. The patient will require observation admission for further management. *DC/Admit/Observation/Transfer Diagnosis at time of Disposition: Hypokalemia Vomiting Qualifiers: Vomiting type: unspecified Vomiting Intractability: unspecified Nausea presence : unspecified Qualified Code(s): R11.10 - Vomiting, unspecified - Discharge Dispostion Condition at time of disposition: Stable Decision to Admit order: Yes - Referrals Referrals: Jose Diaz MD, MD [Primary Care Provider] - - Patient Instructions - Post Discharge Activity
[2018-07-07] MEDS ORDERED: SODIUM CHLORIDE 1,000 ML IV STA (17:22)
[2018-07-07 18:13] LABS: BASO % 0.5 % (0-2.0); EOS % 0.4 % (0-4.5); HEMATOCRIT 42.6 % (35.4-49); HEMOGLOBIN 14.8 GM/dL (11.7-16.9); LYMPH % 24.8 % (8-40); MCHC 34.7 g/dl (32.0-35.9); MEAN CELL VOLUME 86.4 fl (80-96); MEAN PLT VOLUME 6.2 fl (7.5-11.1); MONO % 7.7 % (3.8-10.2); NEUT % 66.6 % (42.8-82.8); PLATELET COUNT 129 K/MM3 (134-434); RBC 4.93 M/mm3 (4.00-5.60); RDW 14.3 % (11.9-15.9); WHITE BLOOD COUNT 5.1 K/mm3 (4.0-10.0)
--- NOTE | 2018-07-07 18:51 | PDOC ---
Attending Attestation - HPI HPI: 07/07/18 19:09 The patient is a 67-year-old male with past medical history significant for HTN , HLD, DM, Metastatic pancreatic CA (initially stage 3, currently Stage 4, chemo last year, stopped treatment about 4 months ago) presents to the emergency department with lightheadedness and weakness. The patient presents with 3 weeks of generalized weakness, with an associated concern of decreased food intake secondary to nausea and vomiting and intermittent abdominal pain. The patient states hes BP at home was 70/50. Denies fever, chills, chest pain, shortness of breath, urinary complaints or changes in bowel habits. Allergies: NKA Social history: Former smoker. Social use of alcohol. Marijuana use reported. PCP: Dr. Jose Diaz - Medical Decision Making 07/07/18 19:09 Documentation prepared by Aileen Seay, acting as emergency medical technician for Keri Menard MD. <Aileen Seay - Last Filed: 07/07/18 19:09> - Resident Resident Name: Ren Trejo - ED Attending Attestation I have performed the following: I have examined & evaluated the patient, The case was reviewed & discussed with the resident, I agree w/resident's findings & plan, Exceptions are as noted - Physicial Exam PE: 07/07/18 20:48 awake alert lungs clear bilaterally heart rrr no mrg. abd soft nt nd. ext wwp no edema. skin warm and dry. nuero alert oriented x 3. - Medical Decision Making 67 yo male with h/o pancreatic cancer here with intractable vomiting, inability to tolerate po. was hypotensive at home. in 70's. here bp normal/ low. differential gastric outlet obstruction, electrolyte abnormality anemia, dehydration. infection . plan labs iv hydration, antiemetics, pain control as needed. ct a/p. pt with hypokalemia, likely secondary to intractable vomiting. will replenish. admit to tele. ekg sinus, 73, no dysrhtymia. pr 156. 07/07/18 20:48 <Keri Menard - Last Filed: 07/07/18 20:51> Heart Score/ECG Review #1 General ECG Interpretation: Sinus Rhythm, Normal Rate (73), Normal Intervals, No acute ischemic changes <Keri Menard - Last Filed: 07/07/18 20:51>
[2018-07-07 19:49] LABS: ALBUMIN 2.6 g/dl (3.4-5.0); ALK PHOS 201 U/L (45-117); BILIRUBIN,TOTAL 0.7 mg/dL (0.2-1); BLOOD UREA NITROGEN 11 mg/dL (7-18); CALCIUM 8.4 mg/dL (8.5-10.1); CHLORIDE 72 mmol/L (98-107); CREATININE 0.7 mg/dL (0.55-1.3); GLUCOSE,RANDOM 180 mg/dL (74-106); LIPASE 34 U/L (73-393); SGOT/AST 39 U/L (15-37); SGPT/ALT 35 U/L (13-61); SODIUM 131 mmol/L (136-145)
[2018-07-07 20:04] LABS: ANION GAP 13 MMOL/L (8-16); CO2 46 mmol/L (21-32)
[2018-07-07 20:07] LABS: POTASSIUM 2.3 mmol/L (3.5-5.1)
[2018-07-07] MEDS ORDERED: KCL 10 MEQ IVPB 30 MEQ/300 ML INFUS.BAG IVPB ONE (21:04)
[2018-07-07] MEDS: KCL 10 MEQ IVPB 10 MEQ/100 ML INFUS.BAG IVPB SCH ×3 (21:14→23:06)
[2018-07-07 22:54] LABS: URINE APPEARANCE CLEAR; URINE BILIRUBIN NEGATIVE (<2.0 mg/dL); URINE COLOR LTYELLOW; URINE GLUCOSE (UA) NEGATIVE (NEGATIVE); URINE KETONE NEGATIVE (NEGATIVE); URINE LEUK ESTERASE TRACE (NEGATIVE); URINE NITRITE NEGATIVE (NEGATIVE); URINE PROTEIN NEGATIVE (NEGATIVE); URINE UROBILINOGEN 4.0 E.U/dl mg/dL (0.2-1.0)
[2018-07-08] MEDS ORDERED: LACTATED RINGERS SOLUTION 1,000 ML IV SCH (01:00)
[2018-07-08] MEDS ORDERED: POTASSIUM CHLORIDE 20 MEQ PREMIX IVPB 100 ML IVPB SCH (01:00)
--- NOTE | 2018-07-08 01:18 | HP ---
CHIEF COMPLAINT: Dizziness + Vomiting PCP: Dr. Jose Diaz ([facility]) HISTORY OF PRESENT ILLNESS: 67 y/o M with PMHx of Metastatic Pancreatic Cancer, HTN, HLD, DM (diet controlled), COPD, Chronic constipation, presents after feeling dizziness. Patient says he woke up at his baseline and later in the morning, while standing up from a supine position, he began to feel dizzy and lightheaded. At this time he took his BP which was 70/50 and his blood sugar which was low ( patient and his at bedside could not pinpoint the exact measurement). At this time his daughter instructed the patient and his to visit the ED. Patient has felt dizzy in the past and mentions having gotten lightheaded to the point where hes lost consciousness many years ago. The patient visited the hospital after his most recent episode of dizziness and was diagnosed with Pancreatic Ca with transfer to [facility]. Patient says he has not been worked up for this dizziness in the past. Denies any accompanying Palpitations, Chest pain or SOB. Patient has had decreased PO intake since his cancer tx (Surgical resection, Chemo) and has only been able to tolerate Ensure Shakes and not solid food. He has had multiple episodes of NBNB vomiting since his cancer tx, and has not had any increase in the amount of vomit or number of episodes. Denies any sick contacts , Tick Bites, Recent medication changes. ER course was notable for: (1) NS 1L (2) CT A/P (3) KCl 10mEq x 3 bags Recent Travel: Denies PAST MEDICAL HISTORY: Metastatic Pancreatic Cancer HTN HLD DM (diet controlled) COPD Chronic constipation PAST SURGICAL HISTORY: L eye glaucoma surgery Abdominal surgery for Cancer Social History: Smoking: Former Smoker Alcohol: Socially Drugs: Occasional Marijuana use Family History: Allergies No Known Allergies Allergy (Verified 07/07/18 17:03) HOME MEDICATIONS: Home Medications Medication Instructions Recorded Ondansetron [Zofran -] 8 mg PO TID PRN 07/07/18 Oxycodone HCl 10 mg PO TID 07/07/18 Tamsulosin HCl [Flomax] 0.4 mg PO DAILY 07/07/18 REVIEW OF SYSTEMS As Per HPI PHYSICAL EXAMINATION Vital Signs - 24 hr 07/07/18 07/07/18 17:06 22:26 Temperature 97.8 F 98.1 F Pulse Rate 89 Pulse Rate [ 76 Apical] Respiratory 18 20 Rate Blood Pressure 97/57 L Blood Pressure 115/76 [Right Arm] O2 Sat by Pulse 99 100 Oximetry (%) GENERAL: A&Ox3, NAD, Lying comfortably HEAD: NCAT EYES: Right Pupil round and reactive to light, L eye post-surgical changes, EOMI EARS, NOSE, THROAT: Oropharynx clear without exudates. MMM NECK: No JVD LUNGS: Breath sounds equal, clear to auscultation bilaterally. No wheezes HEART: Regular rate and rhythm, normal S1 and S2 without murmur ABDOMEN: Large Surgical scar over the mid-abdomen, Soft, nontender, not distended, + bowel sounds, no guarding EXTREMITIES: 2+ pulses, No calf tenderness. No peripheral edema. NEUROLOGICAL: Cranial nerves II-XII intact. Normal speech. Normal gait. SKIN: Warm, dry Laboratory Results - last 24 hr 07/07/18 07/07/18 07/07/18 18:00 18:00 18:00 WBC 5.1 RBC 4.93 Hgb 14.8 Hct 42.6 D MCV 86.4 MCH 30.0 MCHC 34.7 RDW 14.3 Plt Count 129 L MPV 6.2 L Absolute Neuts (auto) 3.4 Neutrophils % 66.6 Lymphocytes % 24.8 D Monocytes % 7.7 Eosinophils % 0.4 Basophils % 0.5 Nucleated RBC % 0 Sodium Cancelled Potassium Cancelled Chloride Cancelled Carbon Dioxide Cancelled Anion Gap Cancelled BUN Cancelled Creatinine Cancelled Creat Clearance w eGFR Cancelled Random Glucose Cancelled Calcium Cancelled Total Bilirubin Cancelled AST Cancelled ALT Cancelled Alkaline Phosphatase Cancelled Ammonia 35.47 H Total Protein Cancelled Albumin Cancelled Lipase Cancelled Urine Color Urine Appearance Urine pH Ur Specific Lynn Urine Protein Urine Glucose (UA) Urine Ketones Urine Blood Urine Nitrite Urine Bilirubin Urine Urobilinogen Ur Leukocyte Esterase Urine WBC (Auto) Urine RBC (Auto) 07/07/18 07/07/18 19:00 22:45 WBC RBC Hgb Hct MCV MCH MCHC RDW Plt Count MPV Absolute Neuts (auto) Neutrophils % Lymphocytes % Monocytes % Eosinophils % Basophils % Nucleated RBC % Sodium 131 L Potassium 2.3 L* Chloride 72 L Carbon Dioxide 46 H Anion Gap 13 BUN 11 Creatinine 0.7 Creat Clearance w eGFR > 60 Random Glucose 180 H Calcium 8.4 L Total Bilirubin 0.7 AST 39 H ALT 35 Alkaline Phosphatase 201 H Ammonia Total Protein 7.0 Albumin 2.6 L Lipase 34 L Urine Color Ltyellow Urine Appearance Clear Urine pH 9.0 H Ur Specific Lynn 1.044 H Urine Protein Negative Urine Glucose (UA) Negative Urine Ketones Negative Urine Blood 2+ H Urine Nitrite Negative Urine Bilirubin Negative Urine Urobilinogen 4.0 e.u/dl Ur Leukocyte Esterase Trace Urine WBC (Auto) 3 Urine RBC (Auto) <1 Active Medications Enoxaparin Sodium (Lovenox -) 40 mg SQ DAILY SAWYER Lactated Ringer's (Lactated Ringers Solution) 1,000 mls @ 100 mls/hr IV ASDIR SAWYER Last Admin: 07/08/18 01:36 EDT Dose: 100 mls/hr Potassium Chloride (Potassium Chloride 20 Meq Premix Ivpb -) 40 meq IVPB Q4H SAWYER Stop: 07/08/18 09:01 Last Admin: 07/08/18 01:10 EST Dose: 40 meq ASSESSMENT/PLAN: 67 y/o M with PMHx of Metastatic Pancreatic Cancer, HTN, HLD, DM (diet controlled), COPD, Chronic constipation, presents after feeling dizziness with vomiting and is found to have Hypokalemia. #Hypokalemia -Possibly due to Intractable Vomiting -KCl 10 mEq x 3 bags given in ED -KCl 40 mEq Q4H x 3 bags ordered -LR @ 100 mls/hr #Protien Calorie Malnutrition -Likely due yo metastatic cancer -Palliative care consult -Consider dietary consult for supplemental diet (glucerna/ensure) -IVF hydration with LR for now; consider appetite stimulation #Metastatic Pancreatic Cancer -Stable, Continue to Monitor #HTN -115/76 here, Continue to monitor -Will need med rec to restart home meds #HLD -Will need med rec to restart home meds #DM -Patient says is controlled with Diet -Continue to monitor, Can conside ISS if BG remains consistently elevated #FEN -LR @ 100 mls/hr -Replete K+ -Clear liquid diet, Supplement with Ensure #PPx -Lovenox Dispo: Tele, Obs Visit type - Emergency Visit Emergency Visit: Yes ED Registration Date: 07/07/18 Care time: The patient presented to the Emergency Department on the above date and was hospitalized for further evaluation of their emergent condition. - New Patient This patient is new to me today: Yes Date on this admission: 07/09/18 - Critical Care Critical Care patient: No
[2018-07-08] MEDS ORDERED: KCL 10 MEQ IVPB 10 MEQ/100 ML INFUS.BAG IVPB ONE (01:54)
--- NOTE | 2018-07-08 01:55 | PN ---
Teaching Attending Note Name of Resident: Michelle Peres ATTENDING PHYSICIAN STATEMENT I saw and evaluated the patient. I reviewed the resident's note and discussed the case with the resident. I agree with the resident's findings and plan as documented. SUBJECTIVE: OBJECTIVE: ASSESSMENT AND PLAN: 67 y/o M with PMHx of Metastatic Pancreatic Cancer, HTN, HLD, DM (diet controlled), COPD, Chronic constipation, admitted for intractable vomiting, failure to thrive, ahd hypokalemia #Hypokalemia -Possibly due to Intractable Vomiting -KCl 10 mEq x 3 bags given in ED -KCl 40 mEq PO q4 hrs x 3 doses -LR @ 100 mls/hr failure to thrive and wasting - 2/2 metastatic cancer palliative care evaluation marketing professional evaluation supplemental diet (glucerna/ensure) appetite stimulation GI evaluation if needed IVF hydration with LR #Metastatic Pancreatic Cancer -Stable, Continue to Monitor #HTN -115/76 here, Continue to monitor -Will need med rec to restart home meds #HLD -Will need med rec to restart home meds #DM -Patient says is controlled with Diet -Continue to monitor, Can conside ISS if BG remains consistently elevated
[2018-07-08] MEDS ORDERED: POTASSIUM CHLORIDE 40 MEQ in SODIUM CHLORIDE 500 ML IVPB SCH (05:00)
[2018-07-08] MEDS ORDERED: POTASSIUM CHLORIDE TABS 20 MEQ TABLET.ER (FP) PO ONE ×3 (06:03→14:55)
[2018-07-08] MEDS: POTASSIUM CHLORIDE TABS 20 MEQ TABLET.ER (FP) PO SCH ×4 (06:12→21:49)
[2018-07-08 06:20] LABS: BASO % 0.3 % (0-2.0); EOS % 0.9 % (0-4.5); HEMOGLOBIN 13.4 GM/dL (11.7-16.9); LYMPH % 15.7 % (8-40); MCH 30.3 pg (25.7-33.7); MCHC 35.2 g/dl (32.0-35.9); MEAN PLT VOLUME 6.3 fl (7.5-11.1); MONO % 7.8 % (3.8-10.2); NEUT % 75.3 % (42.8-82.8); PLATELET COUNT 284 K/MM3 (134-434); RBC 4.41 M/mm3 (4.00-5.60); RDW 14.1 % (11.9-15.9); WHITE BLOOD COUNT 5.6 K/mm3 (4.0-10.0)
[2018-07-08 06:41] LABS: ALBUMIN 2.4 g/dl (3.4-5.0); ALK PHOS 168 U/L (45-117); ANION GAP 6 MMOL/L (8-16); BILIRUBIN,TOTAL 0.8 mg/dL (0.2-1); BLOOD UREA NITROGEN 7 mg/dL (7-18); CALCIUM 8.1 mg/dL (8.5-10.1); CHLORIDE 82 mmol/L (98-107); CO2 43 mmol/L (21-32); CREATININE 0.5 mg/dL (0.55-1.3); GLUCOSE,RANDOM 109 mg/dL (74-106); MAGNESIUM 1.9 mg/dL (1.8-2.4); PHOSPHOROUS 3.3 mg/dL (2.5-4.9); SGOT/AST 33 U/L (15-37); SGPT/ALT 29 U/L (13-61); SODIUM 131 mmol/L (136-145); TOT PROT 6.2 g/dl (6.4-8.2)
[2018-07-08 06:48] LABS: POTASSIUM 2.4 mmol/L (3.5-5.1)
[2018-07-08] MEDS ORDERED: ONDANSETRON 8 MG TABLET (FP) PO PRN (08:16)
--- NOTE | 2018-07-08 08:18 | PN ---
Progress Note, Physician Chief Complaint: feels less Dizzy not in distress - Current Medication List Current Medications: Active Medications Active Medications Home Medication List Medication Instructions Recorded Confirmed Type Ondansetron [Zofran -] 8 mg PO TID PRN 07/07/18 07/07/18 History Oxycodone HCl 10 mg PO TID 07/07/18 07/07/18 History Tamsulosin HCl [Flomax] 0.4 mg PO DAILY 07/07/18 07/07/18 History Active Medications Active Medications Enoxaparin Sodium (Lovenox -) 40 mg SQ DAILY [facility] Last Admin: 07/08/18 09:10 Dose: 40 mg Potassium Chloride/Dextrose/Sod Cl (D5-1/2ns+10 Meq Kcl -) 10 meq in 1,000 mls @ 100 mls/hr IV ASDIR [facility] Last Admin: 07/08/18 11:51 Dose: 100 mls/hr Ondansetron HCl (Zofran -) 8 mg PO TID PRN PRN Reason: NAUSEA Oxycodone HCl (Roxicodone -) 10 mg PO TID PRN PRN Reason: PAIN LEVEL 6-10 Potassium Chloride (K-Dur -) 40 meq PO Q4HWA [facility] Stop: 07/08/18 18:00 Last Admin: 07/08/18 11:51 Dose: 40 meq Tamsulosin HCl (Flomax -) 0.4 mg PO DAILY@0830 [facility] Last Admin: 07/08/18 09:07 Dose: 0.4 mg - Objective Vital Signs: Vital Signs Temperature 98.5 F 07/08/18 07:53 Pulse Rate 71 07/08/18 07:53 Respiratory Rate 17 07/08/18 07:53 Blood Pressure 110/53 L 07/08/18 07:53 O2 Sat by Pulse Oximetry (%) 99 07/08/18 07:53 Constitutional: Yes: No Distress, Calm HENT: Yes: Normocephalic Neck: Yes: Supple, Trachea Midline. No: Lymphadenopathy, Rigid Cardiovascular: Yes: Regular Rate and Rhythm, S1, S2. No: JVD, Gallop, Murmur, Rub Respiratory: Yes: CTA Bilaterally Gastrointestinal: Yes: Normal Bowel Sounds, Soft, Other (S?p abd surgery in the pat) Extremities: No: Calf Tenderness Edema: No Peripheral Pulses: Left Doralis Pedis: 1+, Right Dorsalis Pedis: 1+ Neurological: Yes: Alert, Oriented ...Motor Strength: WNL, LUE, LLE, RUE, RLE Labs: CBC, BMP 07/08/18 06:05 07/08/18 06:05 - ....Imaging Cat Scan: Report Reviewed (abd: report pending) Problem List - Problems (1) Hypokalemia Assessment/Plan: Due to nause and vomiting recived repletion will F/U BMP in after noon Code(s): E87.6 - HYPOKALEMIA (2) ISAAC (acute kidney injury) Assessment/Plan: Resolving with Hydration Code(s): N17.9 - ACUTE KIDNEY FAILURE, UNSPECIFIED (3) HTN (hypertension) Assessment/Plan: Well controlled Code(s): I10 - ESSENTIAL (PRIMARY) HYPERTENSION Qualifiers: Hypertension type: essential hypertension Qualified Code(s): I10 - Essential (primary) hypertension (4) Pancreatic cancer Assessment/Plan: S/p surgery and chemotherapy current not on any treatment F/U at [facility] Code(s): C25.9 - MALIGNANT NEOPLASM OF PANCREAS, UNSPECIFIED (5) Chronic pain Assessment/Plan: cont Oxycodone PRN Code(s): G89.29 - OTHER CHRONIC PAIN (6) Nausea & vomiting Assessment/Plan: Cont Zofran and PPI advance as tolerates IV Hydration Code(s): R11.2 - NAUSEA WITH VOMITING, UNSPECIFIED
[2018-07-08] MEDS ORDERED: TAMSULOSIN HCL 0.4 MG CAP ONE (09:02)
[2018-07-08] MEDS: TAMSULOSIN HCL 0.4 MG CAP PO SCH (09:07)
[2018-07-08] MEDS: ENOXAPARIN NA (PORCINE) 40 MG/0.4 ML DISP.SYRIN SQ SCH (09:10)
[2018-07-08] MEDS ORDERED: oxyCODONE HCL 5 MG TABLET PO PRN (09:28)
--- NOTE | 2018-07-08 11:42 | EKG ---
Test Reason : Blood Pressure : / mmHG Vent. Rate : 073 BPM Atrial Rate : 073 BPM P-R Int : 156 ms QRS Dur : 114 ms QT Int : 426 ms P-R-T Axes : 067 024 046 degrees QTc Int : 469 ms SINUS RHYTHM WITH MARKED SINUS ARRHYTHMIA SEPTAL INFARCT (CITED ON OR BEFORE 24-MAR-2017) NONSPECIFIC ST ABNORMALITY ABNORMAL ECG Confirmed by ANICETO KEATING MD ([id number]) on 07/08/2018 11:42:33 AM Referred By: Confirmed By:ANICETO KEATING MD
[2018-07-08] MEDS: D5-1/2NS+10 MEQ KCL - 10 MEQ/1,000 ML INFUS.BAG IV SCH (11:51)
[2018-07-08] MEDS ORDERED: oxyCODONE HCL 5 MG TABLET PO SCH (14:00)
[2018-07-08] MEDS ORDERED: PANTOPRAZOLE SODIUM 40 MG VIAL ONE (15:13)
[2018-07-08] MEDS: PANTOPRAZOLE SODIUM 40 MG VIAL IVPUSH SCH (15:18)
[2018-07-08 15:36] LABS: ANION GAP 7 MMOL/L (8-16); BLOOD UREA NITROGEN 6 mg/dL (7-18); CALCIUM 8.4 mg/dL (8.5-10.1); CHLORIDE 84 mmol/L (98-107); CO2 39 mmol/L (21-32); CREATININE 0.5 mg/dL (0.55-1.3); GLUCOSE,RANDOM 133 mg/dL (74-106); SODIUM 130 mmol/L (136-145)
[2018-07-08 15:38] LABS: POTASSIUM 2.9 mmol/L (3.5-5.1)
[2018-07-08] MEDS ORDERED: POTASSIUM CHLORIDE ORAL LIQUID 20 MEQ/15 ML PO ONE (16:10)
[2018-07-08] MEDS ORDERED: MAGNESIUM 1GM/D5W - 1 GM/100 ML IVPB IVPB ONE ×2 (16:21→18:40)
[2018-07-08] MEDS ORDERED: POTASSIUM CHLORIDE TABS 10 MEQ TABLET.ER (FP) ONE (18:40)
[2018-07-09 00:33] VITALS: BMI 20.9
[2018-07-09 06:31] LABS: BASO % 0.4 % (0-2.0); EOS % 0.8 % (0-4.5); HEMATOCRIT 37.3 % (35.4-49); HEMOGLOBIN 13.3 GM/dL (11.7-16.9); LYMPH % 18.3 % (8-40); MCH 30.7 pg (25.7-33.7); MCHC 35.6 g/dl (32.0-35.9); MEAN CELL VOLUME 86.1 fl (80-96); MEAN PLT VOLUME 6.8 fl (7.5-11.1); MONO % 8.3 % (3.8-10.2); NEUT % 72.2 % (42.8-82.8); PLATELET COUNT 311 K/MM3 (134-434); RBC 4.34 M/mm3 (4.00-5.60); RDW 14.3 % (11.9-15.9); WHITE BLOOD COUNT 5.3 K/mm3 (4.0-10.0)
[2018-07-09 07:03] LABS: ALBUMIN 2.6 g/dl (3.4-5.0); ALK PHOS 159 U/L (45-117); ANION GAP 10 MMOL/L (8-16); BILIRUBIN,TOTAL 0.9 mg/dL (0.2-1); BLOOD UREA NITROGEN 4 mg/dL (7-18); CHLORIDE 88 mmol/L (98-107); CO2 36 mmol/L (21-32); CREATININE 0.4 mg/dL (0.55-1.3); GLUCOSE,RANDOM 119 mg/dL (74-106); MAGNESIUM 1.9 mg/dL (1.8-2.4); POTASSIUM 3.3 mmol/L (3.5-5.1); SGOT/AST 31 U/L (15-37); SGPT/ALT 28 U/L (13-61); SODIUM 134 mmol/L (136-145); TOT PROT 6.5 g/dl (6.4-8.2)
[2018-07-09] MEDS ORDERED: ONDANSETRON 4 MG TABLET PO ONE (10:59)
[2018-07-09] MEDS: ENOXAPARIN NA (PORCINE) 40 MG/0.4 ML DISP.SYRIN SQ SCH (11:59)
[2018-07-09] MEDS: TAMSULOSIN HCL 0.4 MG CAP PO SCH (12:00)
[2018-07-09] MEDS: D5-1/2NS+10 MEQ KCL - 10 MEQ/1,000 ML INFUS.BAG IV SCH (12:00)
[2018-07-09] MEDS: POTASSIUM CHLORIDE TABS 20 MEQ TABLET.ER (FP) PO SCH ×2 (12:00→21:41)
[2018-07-09] MEDS: PANTOPRAZOLE SODIUM 40 MG VIAL IVPUSH SCH (12:01)
--- NOTE | 2018-07-09 12:26 | PN ---
Progress Note, Physician Chief Complaint: DIZZINESS History of Present Illness: NAD Dizziness improving electrolytes improving IVF Seen by Nephrology self ambulatory - Current Medication List Current Medications: Active Medications Enoxaparin Sodium (Lovenox -) 40 mg SQ DAILY [facility] Last Admin: 07/09/18 11:59 Dose: 40 mg Potassium Chloride/Dextrose/Sod Cl (D5-1/2ns+10 Meq Kcl -) 10 meq in 1,000 mls @ 100 mls/hr IV ASDIR [facility] Last Admin: 07/09/18 12:00 Dose: 100 mls/hr Ondansetron HCl (Zofran -) 8 mg PO TID PRN PRN Reason: NAUSEA Last Admin: 07/09/18 12:01 Dose: 8 mg Oxycodone HCl (Roxicodone -) 10 mg PO TID PRN PRN Reason: PAIN LEVEL 6-10 Pantoprazole Sodium (Protonix Iv) 40 mg IVPUSH DAILY [facility] Last Admin: 07/09/18 12:01 Dose: 40 mg Potassium Chloride (K-Dur -) 40 meq PO BID [facility] Last Admin: 07/09/18 12:00 Dose: 40 meq Tamsulosin HCl (Flomax -) 0.4 mg PO DAILY@0830 [facility] Last Admin: 07/09/18 12:00 Dose: 0.4 mg - Objective Vital Signs: Vital Signs Temperature 98.1 F 07/09/18 06:00 Pulse Rate 92 H 07/09/18 09:58 Respiratory Rate 18 07/09/18 09:58 Blood Pressure 128/79 07/09/18 09:58 O2 Sat by Pulse Oximetry (%) 98 07/09/18 00:44 Constitutional: Yes: No Distress, Calm, Thin Cardiovascular: Yes: Regular Rate and Rhythm Respiratory: Yes: Regular Gastrointestinal: Yes: Normal Bowel Sounds, Soft Musculoskeletal: Yes: WNL Extremities: Yes: WNL Edema: No Peripheral Pulses WNL: Yes Neurological: Yes: Alert, Oriented Psychiatric: Yes: Alert, Oriented Labs: CBC, BMP 07/09/18 05:30 07/09/18 05:30 Problem List - Problems (1) ISAAC (acute kidney injury) Assessment/Plan: Nephrology on board Code(s): N17.9 - ACUTE KIDNEY FAILURE, UNSPECIFIED (2) Hypokalemia Assessment/Plan: -resolved -IV-D5+NS+KCl20 meq -KCl 40 meq BID PO-would decrease it to 40 meq once a day Code(s): E87.6 - HYPOKALEMIA (3) Pancreatic cancer Assessment/Plan: -GI consult -CT abd/pelvis: Slightly nodular contour of the liver that may represent liver cirrhosis. Correlate clinically. A biliary stent is present in place with moderate pneumobilia. Atrophic body and tail of the pancreas with a prominent pancreatic head. Clinical history of pancreatic mass. Small amount of free fluid/ascites in the right upper abdomen around the liver and gallbladder that is only partially distended limiting its evaluation. A duodenal stent is present within second portion of the duodenum with significant thickening of its wall. There is no evidence of small bowel obstruction. Focal thickening of the distal sigmoid colon wall best visualized on axial image 133 and coronal image 68 for which further evaluation is recommended to rule out an infiltrative process. Left adrenal nodule measuring 2.6 cm. Enlarged prostate gland Code(s): C25.9 - MALIGNANT NEOPLASM OF PANCREAS, UNSPECIFIED (4) Nausea & vomiting Assessment/Plan: -now resolving -Reglan PRN Code(s): R11.2 - NAUSEA WITH VOMITING, UNSPECIFIED (5) Dehydration Assessment/Plan: -2/2 to decreased PO intake and N&V -IVF Code(s): E86.0 - DEHYDRATION (6) Abdominal pain Assessment/Plan: -CT abd/pel reviewed -GI consult -On clear liquid diet-advance as tolerated Code(s): R10.9 - UNSPECIFIED ABDOMINAL PAIN Assessment/Plan see problem list DVT prophylaxis Physical therapy
[2018-07-09] MEDS ORDERED: D5-1/2NS+20 MEQ KCL - 20 MEQ/1,000 ML INFUS.BAG IV SCH (12:30)
--- NOTE | 2018-07-09 16:05 | CONSULT ---
Consult Consult Specialty:: Nephrology Reason for Consultation:: hypokalemia - History of Present Illness Chief Complaint: nausea and vomiting History of Present Illness: Pt is a 67 year old male with pmhx of HTN, HLD, DM, and metastatic pancreatic cancer who presents to the ER with light-headedness, nausea and vomiting. He says that he has not been able to tolerate PO intake and that his weakness has been getting worse. He was found to be hypokalemic. He was given supplements and the potassium is slowly improving. I was called to evalaute him for hypokalemia. He checked his bp at home and found his systolic pressure to be in the 70s. He denies chest pain or palpitations. - History Source History Provided By: Patient, Medical Record - Past Medical History Cardio/Vascular: Yes: HTN, Hyperlipdemia Heme/Onc: Yes: Other (metastatic pancreatic cancer) Endocrine: Yes: Diabetes Mellitus (on insulin) - Alcohol/Substance Use Hx Alcohol Use: Yes (occasional) - Smoking History Smoking history: Former smoker Have you smoked in the past 12 months: No Aproximately how many cigarettes per day: 0 If you are a former smoker, when did you quit?: 2007 - Social History Usual Living Arrangement: Alone Home Medications - Allergies Allergies/Adverse Reactions: Allergies Allergy/AdvReac Type Severity Reaction Status Date / Time No Known Allergies Allergy Verified 07/07/18 17:03 - Home Medications Home Medications: Ambulatory Orders Ondansetron [Zofran -] 8 mg PO TID PRN 07/07/18 Oxycodone HCl 10 mg PO TID 07/07/18 Tamsulosin HCl [Flomax] 0.4 mg PO DAILY 07/07/18 Family Disease History - Family Disease History Family History: Denies Review of Systems - Review of Systems Constitutional: reports: Malaise Eyes: reports: No Symptoms HENT: reports: No Symptoms Neck: reports: No Symptoms Cardiovascular: reports: No Symptoms Respiratory: reports: No Symptoms Gastrointestinal: reports: Nausea, Vomiting Genitourinary: reports: No Symptoms Musculoskeletal: reports: Muscle Weakness Neurological: reports: No Symptoms Endocrine: reports: No Symptoms Hematology/Lymphatic: reports: No Symptoms Psychiatric: reports: No Symptoms Physical Exam Vital Signs: Vital Signs Temperature 97.3 F L 07/09/18 15:32 Pulse Rate 80 11/05/18 15:32 Respiratory Rate 20 07/09/18 15:32 Blood Pressure 141/83 07/09/18 15:32 O2 Sat by Pulse Oximetry (%) 98 07/09/18 00:44 Constitutional: Yes: Calm Eyes: Yes: Conjunctiva Clear HENT: Yes: Atraumatic Neck: Yes: Supple Cardiovascular: Yes: S1, S2 Respiratory: Yes: CTA Bilaterally Gastrointestinal: Yes: Soft Renal/: Yes: WNL Musculoskeletal: Yes: WNL Edema: No Neurological: Yes: Oriented Psychiatric: Yes: Oriented Labs: CBC, BMP 07/09/18 05:30 07/09/18 05:30 Laboratory Tests 07/07/18 07/07/18 07/08/18 19:00 22:45 06:05 Sodium Potassium 2.3 L* 2.4 L* Carbon Dioxide 46 H BUN Creatinine Albumin Ur Specific Ayr 1.044 H Urine Protein Negative Urine Blood 2+ H 07/08/18 07/09/18 15:00 05:30 Sodium 134 L Potassium 2.9 L* 3.3 L Carbon Dioxide BUN 4 L Creatinine 0.4 L Albumin 2.6 L Ur Specific [place] Urine Protein Urine Blood Imaging - Results Cat Scan: Report Reviewed Problem List - Problems (1) Hypokalemia Code(s): E87.6 - HYPOKALEMIA (2) Nausea & vomiting Code(s): R11.2 - NAUSEA WITH VOMITING, UNSPECIFIED (3) Pancreatic cancer Code(s): C25.9 - MALIGNANT NEOPLASM OF PANCREAS, UNSPECIFIED Assessment/Plan Current Medications Generic Name Dose Route Start Last Admin Trade Name Freq PRN Reason Stop Dose Admin Amino Acids 30 ml 07/09/18 17:30 Prosource No Carb Liquid Pkt PO BID@0800,1730 [facility] Enoxaparin Sodium 40 mg 07/08/18 10:00 07/09/18 11:59 Lovenox - SQ 40 mg DAILY [facility] Administration Potassium Chloride/Dextrose/Sod Cl 20 meq in 1,000 mls @ 75 mls/hr 07/09/18 12 :30 D5-1/2ns+20 Meq Kcl - IV ASDIR [facility] Ondansetron HCl 8 mg 07/08/18 08:16 07/09/18 12:01 Zofran - PO 8 mg TID PRN Administration NAUSEA Pantoprazole Sodium 40 mg 07/08/18 15:00 07/09/18 12:01 Protonix Iv IVPUSH 40 mg DAILY [facility] Administration Potassium Chloride 40 meq 07/08/18 22:00 07/09/18 12:00 K-Dur - PO 40 meq BID [facility] Administration Tamsulosin HCl 0.4 mg 07/08/18 08:30 07/09/18 12:00 Flomax - PO 0.4 mg DAILY@0830 [facility] Administration Impression 1. dehydration 2. hypokalemia 3. vomiting 4. metastatic pancreatic cancer 5. adrenal adenoma 6. hypotension 7. DM 8. hyponatremia Plan - replace potassium - monitor mag - change fluids to d5ns with potassium - urine sg was high, pt likley dehydrated as well - monitor bp
--- NOTE | 2018-07-09 16:23 | CON.CARD ---
Consult Consult Specialty:: Cardiology Reason for Consultation:: Dizziness - History of Present Illness History of Present Illness: 67 M metastatic pancreatic cancer had multiple bouts of vomiting unable to tolerate PO and hypotensive falling with dizziness and significant electrolyte imbalance. No prior cardiac history. No heart failure. Feeling better after repletion. - History Source History Provided By: Patient, Medical Record - Past Medical History Cardio/Vascular: Yes: HTN, Hyperlipdemia Endocrine: Yes: Diabetes Mellitus (on insulin) - Alcohol/Substance Use Hx Alcohol Use: Yes (occasional) - Smoking History Smoking history: Former smoker Have you smoked in the past 12 months: No Aproximately how many cigarettes per day: 0 If you are a former smoker, when did you quit?: 2007 - Social History Usual Living Arrangement: Alone Home Medications - Allergies Allergies/Adverse Reactions: Allergies Allergy/AdvReac Type Severity Reaction Status Date / Time No Known Allergies Allergy Verified 07/07/18 17:03 - Home Medications Home Medications: Ambulatory Orders Ondansetron [Zofran -] 8 mg PO TID PRN 07/07/18 Oxycodone HCl 10 mg PO TID 07/07/18 Tamsulosin HCl [Flomax] 0.4 mg PO DAILY 07/07/18 Review of Systems - Review of Systems Constitutional: reports: Lethargy, Malaise. denies: Chills, Fever, Night Sweats Eyes: reports: No Symptoms HENT: reports: No Symptoms Neck: reports: No Symptoms Cardiovascular: denies: Chest Pain, Edema, Palpitations, Shortness of Breath Respiratory: denies: Cough, Exercise Intolerance, Hemoptysis, SOB, SOB on Exertion Gastrointestinal: reports: Vomiting. denies: Diarrhea, Dysphagia Genitourinary: reports: No Symptoms Vital Signs: Vital Signs Temperature 97.3 F L 07/09/18 15:32 Pulse Rate 80 07/09/18 15:32 Respiratory Rate 20 07/09/18 15:32 Blood Pressure 141/83 07/09/18 15:32 O2 Sat by Pulse Oximetry (%) 98 07/09/18 00:44 Constitutional: Yes: No Distress, Thin Eyes: Yes: Conjunctiva Clear, EOM Intact HENT: Yes: Atraumatic, Normocephalic Neck: Yes: Supple, Trachea Midline Respiratory: Yes: Regular, CTA Bilaterally Gastrointestinal: Yes: Normal Bowel Sounds, Soft Cardiovascular: Yes: Regular Rate and Rhythm PMI: Non-Displaced Heart Sounds: Yes: S1, S2 Murmur: No: Systolic Murmur, Diastolic Murmur Edema: No - Other Data Labs, Other Data: CBC, BMP 07/09/18 05:30 07/09/18 05:[address] T changes. Problem List - Problems (1) Chronic pain Code(s): G89.29 - OTHER CHRONIC PAIN (2) Nausea & vomiting Code(s): R11.2 - NAUSEA WITH VOMITING, UNSPECIFIED (3) Vomiting Code(s): R11.10 - VOMITING, UNSPECIFIED Qualifiers: Vomiting type: unspecified Vomiting Intractability: unspecified Nausea presence: unspecified Qualified Code(s): R11.10 - Vomiting, unspecified Assessment/Plan Admitted with poor PO intake, frequent vomiting and hypotension with significant electrolyte imbalance. Telemetry shows no arrhythmias. Due to dehydration and electrolyte abnormalities. Slowly imptroving after replacement. COntinue to replace K Will see as needed.
[2018-07-09] MEDS: AMINO ACIDS/PROTEIN HYDROLYS 30 ML LIQUID.PKT PO SCH (17:53)
[2018-07-09] MEDS: D5-NS + 20 MEQ KCL - 20 MEQ/1,000 ML INFUS.BAG IV SCH (21:41)
[2018-07-10 07:11] LABS: BASO % 0.6 % (0-2.0); EOS % 1.4 % (0-4.5); HEMATOCRIT 38.3 % (35.4-49); HEMOGLOBIN 13.5 GM/dL (11.7-16.9); LYMPH % 27.5 % (8-40); MCH 30.4 pg (25.7-33.7); MCHC 35.3 g/dl (32.0-35.9); MEAN CELL VOLUME 86.3 fl (80-96); MEAN PLT VOLUME 6.6 fl (7.5-11.1); MONO % 6.8 % (3.8-10.2); NEUT % 63.7 % (42.8-82.8); PLATELET COUNT 335 K/MM3 (134-434); RBC 4.44 M/mm3 (4.00-5.60); RDW 14.7 % (11.9-15.9); WHITE BLOOD COUNT 4.9 K/mm3 (4.0-10.0)
[2018-07-10 08:09] LABS: ALBUMIN 2.6 g/dl (3.4-5.0); ALK PHOS 168 U/L (45-117); ANION GAP 9 MMOL/L (8-16); BILIRUBIN,TOTAL 0.8 mg/dL (0.2-1); CALCIUM 8.3 mg/dL (8.5-10.1); CHLORIDE 97 mmol/L (98-107); CO2 29 mmol/L (21-32); CREATININE 0.4 mg/dL (0.55-1.3); GLUCOSE,RANDOM 116 mg/dL (74-106); MAGNESIUM 1.8 mg/dL (1.8-2.4); POTASSIUM 4.2 mmol/L (3.5-5.1); SGOT/AST 40 U/L (15-37); SGPT/ALT 30 U/L (13-61); SODIUM 135 mmol/L (136-145); TOT PROT 6.9 g/dl (6.4-8.2)
[2018-07-10 08:33] LABS: BLOOD UREA NITROGEN 2 mg/dL (7-18)
[2018-07-10] MEDS: TAMSULOSIN HCL 0.4 MG CAP PO SCH (08:38)
[2018-07-10] MEDS: AMINO ACIDS/PROTEIN HYDROLYS 30 ML LIQUID.PKT PO SCH ×2 (08:38→18:24)
[2018-07-10] MEDS: D5-NS + 20 MEQ KCL - 20 MEQ/1,000 ML INFUS.BAG IV SCH (08:40)
[2018-07-10] MEDS ORDERED: PT OWN MED DRAWER 7, Y5N ONE (09:01)
[2018-07-10] MEDS: ENOXAPARIN NA (PORCINE) 40 MG/0.4 ML DISP.SYRIN SQ SCH (09:06)
[2018-07-10] MEDS: POTASSIUM CHLORIDE TABS 20 MEQ TABLET.ER (FP) PO SCH (09:06)
[2018-07-10] MEDS ORDERED: oxyCODONE HCL 5 MG TABLET PO PRN (11:40)
--- NOTE | 2018-07-10 11:45 | PN ---
Progress Note, Physician Chief Complaint: DIZZINESS History of Present Illness: NAD Dizziness improving electrolytes improving IVF Seen by Nephrology self ambulatory - Current Medication List Current Medications: Active Medications Amino Acids (Prosource No Carb Liquid Pkt) 30 ml PO BID@0800,1730 [facility] Last Admin: 07/10/18 08:38 Dose: 30 ml Dronabinol (Marinol -) 5 mg PO DAILY [facility] Enoxaparin Sodium (Lovenox -) 40 mg SQ DAILY [facility] Last Admin: 07/10/18 09:06 Dose: 40 mg Dextrose/Sodium Chloride (Dextrose 5%-Normal Saline+20 Meq Kcl -) 20 meq in 1, 000 mls @ 83 mls/hr IV ASDIR [facility] Last Admin: 07/10/18 08:40 Dose: 83 mls/hr Ondansetron HCl (Zofran -) 8 mg PO TID PRN PRN Reason: NAUSEA Last Admin: 07/09/18 12:01 Dose: 8 mg Oxycodone HCl (Roxicodone -) 5 mg PO Q6H PRN PRN Reason: PAIN LEVEL 6-10 Pantoprazole Sodium (Protonix Iv) 40 mg IVPUSH DAILY [facility] Last Admin: 07/09/18 12:01 Dose: 40 mg Potassium Chloride (K-Dur -) 40 meq PO DAILY [facility] Tamsulosin HCl (Flomax -) 0.4 mg PO DAILY@0830 [facility] Last Admin: 07/10/18 08:38 Dose: 0.4 mg - Objective Vital Signs: Vital Signs Temperature 98.2 F 07/10/18 06:00 Pulse Rate 72 07/10/18 10:00 Respiratory Rate 18 07/10/18 10:00 Blood Pressure 115/70 07/10/18 10:00 O2 Sat by Pulse Oximetry (%) 100 07/09/18 21:00 Constitutional: Yes: Well Nourished, No Distress, Calm Cardiovascular: Yes: Regular Rate and Rhythm Respiratory: Yes: Regular Gastrointestinal: Yes: Normal Bowel Sounds, Soft Musculoskeletal: Yes: WNL Extremities: Yes: WNL Edema: No Peripheral Pulses WNL: Yes Neurological: Yes: Alert, Oriented Psychiatric: Yes: Alert, Oriented Labs: CBC, BMP 07/10/18 05:30 07/10/18 05:30 Problem List - Problems (1) ISAAC (acute kidney injury) Assessment/Plan: Nephrology on board Code(s): N17.9 - ACUTE KIDNEY FAILURE, UNSPECIFIED (2) Hypokalemia Assessment/Plan: -resolved -IV-D5+NS+KCl20 meq -KCl 40 meq BID PO-would decrease it to 40 meq once a day Code(s): E87.6 - HYPOKALEMIA (3) Pancreatic cancer Assessment/Plan: -GI consult -CT abd/pel: Slightly nodular contour of the liver that may represent liver cirrhosis. Correlate clinically. A biliary stent is present in place with moderate pneumobilia. Atrophic body and tail of the pancreas with a prominent pancreatic head. Clinical history of pancreatic mass. Small amount of free fluid/ascites in the right upper abdomen around the liver and gallbladder that is only partially distended limiting its evaluation. A duodenal stent is present within second portion of the duodenum with significant thickening of its wall. There is no evidence of small bowel obstruction. Focal thickening of the distal sigmoid colon wall best visualized on axial image 133 and coronal image 68 for which further evaluation is recommended to rule out an infiltrative process. Left adrenal nodule measuring 2.6 cm. Enlarged prostate gland -He states he was told that his cancer is spreading Code(s): C25.9 - MALIGNANT NEOPLASM OF PANCREAS, UNSPECIFIED (4) Nausea & vomiting Assessment/Plan: -now resolving -Reglan PRN Code(s): R11.2 - NAUSEA WITH VOMITING, UNSPECIFIED (5) Dehydration Assessment/Plan: -2/2 to decreased PO intake and N&V -IVF Code(s): E86.0 - DEHYDRATION (6) Dysphagia Assessment/Plan: -Speech therapy for swallow eval -RD consult Code(s): R13.10 - DYSPHAGIA, UNSPECIFIED Assessment/Plan see problem list DVT prophylaxis Physical therapy Palliative consult
[2018-07-10] MEDS: PANTOPRAZOLE SODIUM 40 MG VIAL IVPUSH SCH (12:32)
[2018-07-10] MEDS: DRONABINOL 2.5 MG CAPSULE PO SCH (12:32)
--- NOTE | 2018-07-10 13:57 | ECHO ---
Name: ISIDOROEVELYN Exam:Adult Echocardiogram Study Date: 07/10/2018 11:56 AM Age: 67 yrs Reason For Study: ARRHYTHMIA Height: 75 in Weight: 168 lb BSA: 2.0 m2 MMode/2D Measurements & Calculations IVSd: 1.1 cm Ao root diam: 3.4 cm LVIDd: 5.0 cm LA dimension: 3.7 cm LVIDs: 3.7 cm LVPWd: 0.92 cm EDV(Teich): 119.7 ml ESV(Teich): 57.3 ml Doppler Measurements & Calculations MV E max chin: 35.0 cm/sec Ao V2 max: 101.4 cm/sec MV A max chin: 47.9 cm/sec Ao max P.1 mmHg MV E/A: 0.73 LV V1 max P.4 mmHg MR max chin: 573.8 cm/sec LV V1 max: 60.2 cm/sec MR max P.7 mmHg PI end-d chin: 86.0 cm/sec Med Peak E' Chin: 5.7 cm/sec Med E/e': 6.2 Lat Peak E' Chin: 6.9 cm/sec Lat E/e': 5.1 Procedure A complete two-dimensional transthoracic echocardiogram was performed (2D, M-mode, Doppler and color flow Doppler). Study Quality: Technically adequate. Left Ventricle The left ventricular size, thickness and function are normal. Ejection Fraction = 55%. The transmitra l spectral Doppler flow pattern is suggestive of impaired LV relaxation. The left ventricular wall farida on is normal. Right Ventricle The right ventricle is normal in size and function. There is normal right ventricular wall thickness. The right ventricular systolic function is normal. Atria Normal left and right atrial size and function. Mitral Valve The mitral valve is grossly normal. There is moderate mitral regurgitation. Tricuspid Valve The tricuspid valve is normal in structure and function. There is trace tricuspid regurgitation. Aortic Valve There is mild aortic sclerosis.;. Pulmonic Valve The pulmonic valve is not well visualized. Great Vessels The aortic root is normal size. Pericardium/Pleura Small pericardial effusion (<1cm). Interpretation Summary The left ventricular size, thickness and function are normal The transmitral spectral Doppler flow pattern is suggestive of impaired LV relaxation. The right ventricle is normal in size and function. Normal left and right atrial size and function. There is moderate mitral regurgitation. There is mild aortic sclerosis.; Small pericardial effusion (<1cm) William Crump 07/10/2018 01:56 PM
--- NOTE | 2018-07-10 14:30 | CON.GI ---
Consult Consult Specialty:: GI Referred by:: Mayo Kang NP Reason for Consultation:: "pancreatic cancer" - History of Present Illness Chief Complaint: Weakness History of Present Illness: 67M admitted for weakness. he describes vomiting at home as well. he has a history of Stage 4 pancreatic cancer. he wasd followed by Dr. Jeanmarie Leiva. He was transferred to [facility] 04/20 when he presented with gastric outlet obstruction. He alludes to undergoing chemo and radiation therapy but is not sure when his last treatment was. He had a biliary and duodenal stent placed but is not sure when that was performed. he was noted to be hypokalemic. There has been no vomiting since admission. It appears as though he was receiving chemo at [facility] and that his oncologist is Dr. Duffy. ? if last chemo 12/20. CT scan revealed cirrhotic appearing liver, biliary stent with mild pneumobilia, duodenal stent, focal thinckening of sigmoid - Past Medical History Cardio/Vascular: Yes: HTN, Hyperlipdemia Heme/Onc: Yes: Cancer (Pancreatic) Endocrine: Yes: Diabetes Mellitus (on insulin) - Past Surgical History Additional Surgical History: laparoscopy, biliary stent, duodenal stent, ? prior right nephrostomy - Alcohol/Substance Use Hx Alcohol Use: Yes (occasional) History of Substance Use: reports: None - Smoking History Smoking history: Former smoker Have you smoked in the past 12 months: No Aproximately how many cigarettes per day: 0 If you are a former smoker, when did you quit?: 2007 - Social History Usual Living Arrangement: Alone ADL: Independent Place of : [facility] History of Recent Travel: No Home Medications - Allergies Allergies/Adverse Reactions: Allergies Allergy/AdvReac Type Severity Reaction Status Date / Time No Known Allergies Allergy Verified 07/07/18 17:03 - Home Medications Home Medications: Ambulatory Orders Ondansetron [Zofran -] 8 mg PO TID PRN 07/07/18 Oxycodone HCl 10 mg PO TID 07/07/18 Tamsulosin HCl [Flomax] 0.4 mg PO DAILY 07/07/18 Family Disease History - Family Disease History Family Disease History: Other: Father (: Cancer in "stomach"), Mother ( : cancer, unclear type), Brother (: cancer, unclear type), Son ( 6, healthy), Daughter (2, healthy) Review of Systems - Review of Systems Constitutional: reports: Loss of Appetite, Weakness. denies: Fever Gastrointestinal: reports: Nausea, Vomiting. denies: Abdominal Pain, Diarrhea, Rectal Bleeding, Vomiting Blood Physical Exam-GI Vital Signs: Vital Signs Temperature 98.2 F 07/10/18 06:00 Pulse Rate 72 07/10/18 10:00 Respiratory Rate 18 07/10/18 10:00 Blood Pressure 115/70 07/10/18 10:00 O2 Sat by Pulse Oximetry (%) 100 07/09/18 21:00 Constitutional: Yes: Calm Eyes: No: Sclera Icterus Cardiovascular: Yes: Regular Rate and Rhythm, Murmur Respiratory: Yes: CTA Bilaterally Gastrointestinal Inspection: Yes: Scars (midline lower abdominal vertical surgical scar). No: Distention ...Auscultate: Yes: Normoactive Bowel Sounds ...Palpate: No: Hepatomegaly, Splenomegaly, Tenderness ...Percussion: No: Tympanitic Edema: No (No LE edema) Neurological: Yes: Alert Labs: CBC, BMP 07/10/18 05:30 07/10/18 05:30 Hepatic Panel Total Bilirubin 0.8 mg/dL (0.2-1) 07/10/18 05:30 AST 40 U/L (15-37) H 07/10/18 05:30 ALT 30 U/L (13-61) 07/10/18 05:30 Alkaline Phosphatase 168 U/L (45-117) H 07/10/18 05:30 Albumin 2.6 g/dl (3.4-5.0) L 07/10/18 05:30 Imaging - Results Cat Scan: Report Reviewed, Image Reviewed Problem List - Problems (1) Pancreatic cancer Assessment/Plan: Treated for associated gastric outlet obstruction and obstructive jaundice Currently on full liquids. advance as tolerated to multiple, low fiber, small meals per day with nutrition shakes If not tolerating meals, would advise transfer to [facility] to have duodenal stent position and patency evaluated Oncology evaluation Code(s): C25.9 - MALIGNANT NEOPLASM OF PANCREAS, UNSPECIFIED Qualifiers: Pancreatic malignancy location: unspecified Qualified Code(s): C25.9 - Malignant neoplasm of pancreas, unspecified
[2018-07-10] MEDS ORDERED: D5-NS + 20 MEQ KCL - 20 MEQ/1,000 ML INFUS.BAG IV SCH (14:32)
--- NOTE | 2018-07-10 15:43 | PN ---
Progress Note, Physician History of Present Illness: Pt seen and examined at bedside. He is awake and alert. He feels that his appetite is starting to improve. - Current Medication List Current Medications: Active Medications Amino Acids (Prosource No Carb Liquid Pkt) 30 ml PO BID@0800,1730 [facility] Last Admin: 07/10/18 08:38 Dose: 30 ml Dronabinol (Marinol -) 5 mg PO DAILY [facility] Last Admin: 07/10/18 12:32 Dose: 5 mg Enoxaparin Sodium (Lovenox -) 40 mg SQ DAILY [facility] Last Admin: 07/10/18 09:06 Dose: 40 mg Dextrose/Sodium Chloride (Dextrose 5%-Normal Saline+20 Meq Kcl -) 20 meq in 1, 000 mls @ 50 mls/hr IV ASDIR [facility] Last Admin: 07/10/18 15:28 Dose: 50 mls/hr Ondansetron HCl (Zofran -) 8 mg PO TID PRN PRN Reason: NAUSEA Last Admin: 07/09/18 12:01 Dose: 8 mg Oxycodone HCl (Roxicodone -) 5 mg PO Q6H PRN PRN Reason: PAIN LEVEL 6-10 Pantoprazole Sodium (Protonix Iv) 40 mg IVPUSH DAILY [facility] Last Admin: 07/10/18 12:32 Dose: 40 mg Potassium Chloride (K-Dur -) 40 meq PO DAILY [facility] Tamsulosin HCl (Flomax -) 0.4 mg PO DAILY@0830 [facility] Last Admin: 07/10/18 08:38 Dose: 0.4 mg - Objective Vital Signs: Vital Signs Temperature 98.2 F 07/10/18 06:00 Pulse Rate 72 07/10/18 10:00 Respiratory Rate 18 07/10/18 10:00 Blood Pressure 115/70 07/10/18 10:00 O2 Sat by Pulse Oximetry (%) 100 07/09/18 21:00 Constitutional: Yes: Calm Eyes: Yes: Conjunctiva Clear HENT: Yes: Atraumatic Cardiovascular: Yes: S1, S2 Respiratory: Yes: CTA Bilaterally Gastrointestinal: Yes: Soft Musculoskeletal: Yes: WNL Edema: No Neurological: Yes: Oriented Psychiatric: Yes: Oriented Labs: CBC, BMP 07/10/18 05:30 07/10/18 05:30 Problem List - Problems (1) Hypokalemia Code(s): E87.6 - HYPOKALEMIA (2) Nausea & vomiting Code(s): R11.2 - NAUSEA WITH VOMITING, UNSPECIFIED (3) Pancreatic cancer Code(s): C25.9 - MALIGNANT NEOPLASM OF PANCREAS, UNSPECIFIED Assessment/Plan Current Medications Generic Name Dose Route Start Last Admin Trade Name Freq PRN Reason Stop Dose Admin Amino Acids 30 ml 07/09/18 17:30 07/10/18 08:38 Prosource No Carb Liquid Pkt PO 30 ml BID@0800,1730 [facility] Administration Dronabinol 5 mg 07/10/18 11:45 07/10/18 12:32 Marinol - PO 5 mg DAILY [facility] Administration Enoxaparin Sodium 40 mg 07/08/18 10:00 07/10/18 09:06 Lovenox - SQ 40 mg DAILY [facility] Administration Dextrose/Sodium Chloride 20 meq in 1,000 mls @ 50 mls/hr 07/10/18 14:32 07/10 15:28 Dextrose 5%-Normal Saline+20 Meq Kcl - IV 50 mls/hr ASDIR [facility]ER Administration Ondansetron HCl 8 mg 07/08/18 08:16 07/09/18 12:01 Zofran - PO 8 mg TID PRN Administration NAUSEA Oxycodone HCl 5 mg 07/10/18 11:40 Roxicodone - PO Q6H PRN PAIN LEVEL 6-10 Pantoprazole Sodium 40 mg 07/08/18 15:00 07/10/18 12:32 Protonix Iv IVPUSH 40 mg DAILY [facility] Administration Potassium Chloride 40 meq 07/11/18 10:00 K-Dur - PO DAILY [facility] Tamsulosin HCl 0.4 mg 07/08/18 08:30 07/10/18 08:38 Flomax - PO 0.4 mg DAILY@0830 [facility] Administration Impression 1. dehydration 2. hypokalemia 3. vomiting 4. metastatic pancreatic cancer 5. adrenal adenoma 6. hypotension 7. DM 8. hyponatremia Plan - lytes are improved - decrease rate of fluids - repeat labs in am - pt tolerating diet so far - monitor bp
--- NOTE | 2018-07-10 18:36 | CONSULT ---
Consult Consult Specialty:: Heme/Onc Referred by:: Dr. Randhawa Reason for Consultation:: History of pancreatic ca - History of Present Illness Chief Complaint: Dizziness History of Present Illness: 67M history of Metastatic Pancreatic Cancer, HTN, HLD, DM , COPD, presents after lightheadedness and dizziness. Patient has a history of stage 4 metastatic oancreatic cancer and has hd chemo and concurrent chemo/radiation treatment in the past. 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 Patient states he stopped going to chemotherapy due to not being able to tolerate it anymore. he states he has been drinking some herbal medications from the [employer] and has been drinking baking soda and molasses when his "stomach is acting up". He endorses he has been feeling better since admission. Endorses loss of appetite and unintentional weight loss but does not know how much. Last clinic note from oncology placed in the paper chart - History Source History Provided By: Patient, Medical Record - Past Medical History Cardio/Vascular: Yes: HTN, Hyperlipdemia Endocrine: Yes: Diabetes Mellitus (on insulin) - Past Surgical History Additional Surgical History: laparoscopy, biliary stent, duodenal stent, ? prior right nephrostomy - Alcohol/Substance Use Hx Alcohol Use: Yes (occasional) History of Substance Use: reports: None - Smoking History Smoking history: Former smoker Have you smoked in the past 12 months: No Aproximately how many cigarettes per day: 0 If you are a former smoker, when did you quit?: 2007 - Social History Usual Living Arrangement: Alone ADL: Independent History of Recent Travel: No Home Medications - Allergies Allergies/Adverse Reactions: Allergies Allergy/AdvReac Type Severity Reaction Status Date / Time No Known Allergies Allergy Verified 07/07/18 17:03 - Home Medications Home Medications: Ambulatory Orders Ondansetron [Zofran -] 8 mg PO TID PRN 07/07/18 Oxycodone HCl 10 mg PO TID 07/07/18 Tamsulosin HCl [Flomax] 0.4 mg PO DAILY 07/07/18 Family Disease History - Family Disease History Family Disease History: Other: Father (: Cancer in "stomach"), Mother ( : cancer, unclear type), Brother (: cancer, unclear type), Son ( 6, healthy), Daughter (2, healthy) Review of Systems - Review of Systems Constitutional: reports: No Symptoms Eyes: reports: No Symptoms HENT: reports: No Symptoms Neck: reports: No Symptoms Cardiovascular: reports: Other (low BP) Respiratory: reports: No Symptoms Gastrointestinal: reports: Abdominal Pain, Bloating Breasts: reports: No Symptoms Reported Musculoskeletal: reports: No Symptoms Integumentary: reports: No Symptoms Neurological: reports: Dizziness Physical Exam Vital Signs: Vital Signs Temperature 98.6 F 07/10/18 16:15 Pulse Rate 78 07/10/18 16:15 Respiratory Rate 22 H 07/10/18 16:15 Blood Pressure 130/78 07/10/18 16:15 O2 Sat by Pulse Oximetry (%) 100 07/09/18 21:00 Constitutional: Yes: Well Nourished, No Distress, Calm Eyes: Yes: Conjunctiva Clear HENT: Yes: Atraumatic, Normocephalic Neck: Yes: Supple. No: Lymphadenopathy Cardiovascular: Yes: Regular Rate and Rhythm Respiratory: Yes: Regular, CTA Bilaterally Gastrointestinal: Yes: Soft, Palpable Mass (in epigastrium), Tenderness, Epigastrium (mild) Extremities: Yes: Other (no inguinal lymphadenopathy) Edema: No Psychiatric: Yes: Alert, Oriented Labs: CBC, BMP 07/10/18 05:30 07/10/18 05:30 Imaging - Results Cat Scan: Report Reviewed, Image Reviewed Assessment/Plan 67M with history of metastatic pancreatic Ca presents to the hospital with dizziness. Problem List: Pancreatic Ca stage 4 HTN HLD DM COPD Hypoakelmia Dizziness unintentional weight loss protein calorie malnutrition Plan: Discussed potential for chemotherapy to benefit him. Patient would like to think about it. but first patient's acute issues would need to be taken care of and treated. Continue medical care per primary team. Encourage PO intake replete electrolytes PRN will follow
--- NOTE | 2018-07-10 18:56 | PN ---
Teaching Attending Note Name of Resident: Nav Echevarria ATTENDING PHYSICIAN STATEMENT I saw and evaluated the patient. I reviewed the resident's note and discussed the case with the resident. I agree with the resident's findings and plan as documented. SUBJECTIVE: Patient seen and examined Previously herlinda jaime. Had intra-abdominal carcinomatosis on exploration at [facility]. Has duodenal and biliary stent. Might be a candidate for liposomal irinotecan. Will follow. OBJECTIVE: ASSESSMENT AND PLAN:
[2018-07-11] MEDS: TAMSULOSIN HCL 0.4 MG CAP PO SCH (07:50)
[2018-07-11] MEDS: AMINO ACIDS/PROTEIN HYDROLYS 30 ML LIQUID.PKT PO SCH ×2 (07:50→17:14)
[2018-07-11] MEDS ORDERED: PT OWN MED DRAWER 7, Y5N ONE ×2 (08:47→13:39)
--- NOTE | 2018-07-11 08:51 | PN ---
Progress Note, Physician - Current Medication List Current Medications: Active Medications Amino Acids (Prosource No Carb Liquid Pkt) 30 ml PO BID@0800,1730 [facility] Last Admin: 07/11/18 07:50 Dose: 30 ml Dronabinol (Marinol -) 5 mg PO DAILY [facility] Last Admin: 07/10/18 12:32 Dose: 5 mg Enoxaparin Sodium (Lovenox -) 40 mg SQ DAILY [facility] Last Admin: 07/10/18 09:06 Dose: 40 mg Dextrose/Sodium Chloride (Dextrose 5%-Normal Saline+20 Meq Kcl -) 20 meq in 1, 000 mls @ 50 mls/hr IV ASDIR [facility] Last Admin: 07/10/18 15:28 Dose: 50 mls/hr Ondansetron HCl (Zofran -) 8 mg PO TID PRN PRN Reason: NAUSEA Last Admin: 07/09/18 12:01 Dose: 8 mg Oxycodone HCl (Roxicodone -) 5 mg PO Q6H PRN PRN Reason: PAIN LEVEL 6-10 Pantoprazole Sodium (Protonix Iv) 40 mg IVPUSH DAILY [facility] Last Admin: 07/10/18 12:32 Dose: 40 mg Potassium Chloride (K-Dur -) 40 meq PO DAILY [facility] Tamsulosin HCl (Flomax -) 0.4 mg PO DAILY@0830 [facility] Last Admin: 07/11/18 07:50 Dose: 0.4 mg - Objective Vital Signs: Vital Signs Temperature 98.3 F 07/11/18 06:00 Pulse Rate 74 07/11/18 06:00 Respiratory Rate 20 07/11/18 06:00 Blood Pressure 130/76 07/11/18 06:00 O2 Sat by Pulse Oximetry (%) 98 07/10/18 21:00 Cardiovascular: Yes: S1, S2 Respiratory: Yes: Regular, CTA Bilaterally Gastrointestinal: Yes: Normal Bowel Sounds, Soft, Tenderness Labs: CBC, BMP 07/10/18 05:30 Assessment/Plan - Problems (1) ISAAC (acute kidney injury) Assessment/Plan: Nephrology on board Code(s): N17.9 - ACUTE KIDNEY FAILURE, UNSPECIFIED (2) Hypokalemia Assessment/Plan: -resolved -IV-D5+NS+KCl20 meq -KCl 40 meq BID PO-would decrease it to 40 meq once a day Code(s): E87.6 - HYPOKALEMIA (3) Pancreatic cancer Assessment/Plan: -GI consult noted -oncology -CT abd/pel: Slightly nodular contour of the liver that may represent liver cirrhosis. Correlate clinically. A biliary stent is present in place with moderate pneumobilia. Atrophic body and tail of the pancreas with a prominent pancreatic head. Clinical history of pancreatic mass. Small amount of free fluid/ascites in the right upper abdomen around the liver and gallbladder that is only partially distended limiting its evaluation. A duodenal stent is present within second portion of the duodenum with significant thickening of its wall. There is no evidence of small bowel obstruction. Focal thickening of the distal sigmoid colon wall best visualized on axial image 133 and coronal image 68 for which further evaluation is recommended to rule out an infiltrative process. Left adrenal nodule measuring 2.6 cm. Enlarged prostate gland -He states he was told that his cancer is spreading Code(s): C25.9 - MALIGNANT NEOPLASM OF PANCREAS, UNSPECIFIED (4) Nausea & vomiting Assessment/Plan: -now resolving -Reglan PRN Code(s): R11.2 - NAUSEA WITH VOMITING, UNSPECIFIED (5) Dehydration Assessment/Plan: -2/2 to decreased PO intake and N&V -IVF Code(s): E86.0 - DEHYDRATION (6) Dysphagia Assessment/Plan: -Speech therapy for swallow eval -RD consult Code(s): R13.10 - DYSPHAGIA, UNSPECIFIED
[2018-07-11 09:01] LABS: ANION GAP 8 MMOL/L (8-16); BLOOD UREA NITROGEN 4 mg/dL (7-18); CALCIUM 8.5 mg/dL (8.5-10.1); CHLORIDE 96 mmol/L (98-107); CO2 28 mmol/L (21-32); CREATININE 0.4 mg/dL (0.55-1.3); GLUCOSE,RANDOM 108 mg/dL (74-106); MAGNESIUM 1.6 mg/dL (1.8-2.4); PHOSPHOROUS 2.9 mg/dL (2.5-4.9); POTASSIUM 4.2 mmol/L (3.5-5.1); SODIUM 132 mmol/L (136-145)
[2018-07-11] MEDS: ENOXAPARIN NA (PORCINE) 40 MG/0.4 ML DISP.SYRIN SQ SCH (09:10)
[2018-07-11] MEDS: DRONABINOL 2.5 MG CAPSULE PO SCH (09:10)
[2018-07-11] MEDS ORDERED: POTASSIUM CHLORIDE TABS 20 MEQ TABLET.ER (FP) PO SCH (10:00)
[2018-07-11] MEDS: PANTOPRAZOLE SODIUM 40 MG VIAL IVPUSH SCH (11:00)
--- NOTE | 2018-07-11 11:23 | PN ---
Progress Note, Physician History of Present Illness: Pt seen and examined at bedside. He is awake and alert. He says he is tolerating diet. - Current Medication List Current Medications: Active Medications Amino Acids (Prosource No Carb Liquid Pkt) 30 ml PO BID@0800,1730 [facility] Last Admin: 07/11/18 07:50 Dose: 30 ml Dronabinol (Marinol -) 5 mg PO DAILY [facility] Last Admin: 07/11/18 09:10 Dose: 5 mg Enoxaparin Sodium (Lovenox -) 40 mg SQ DAILY [facility] Last Admin: 07/11/18 09:10 Dose: 40 mg Dextrose/Sodium Chloride (Dextrose 5%-Normal Saline+20 Meq Kcl -) 20 meq in 1, 000 mls @ 50 mls/hr IV ASDIR [facility] Last Admin: 07/10/18 15:28 Dose: 50 mls/hr Ondansetron HCl (Zofran -) 8 mg PO TID PRN PRN Reason: NAUSEA Last Admin: 07/09/18 12:01 Dose: 8 mg Oxycodone HCl (Roxicodone -) 5 mg PO Q6H PRN PRN Reason: PAIN LEVEL 6-10 Pantoprazole Sodium (Protonix Iv) 40 mg IVPUSH DAILY [facility] Last Admin: 07/10/18 12:32 Dose: 40 mg Potassium Chloride (K-Dur -) 40 meq PO DAILY [facility] Last Admin: 07/11/18 09:10 Dose: 40 meq Tamsulosin HCl (Flomax -) 0.4 mg PO DAILY@0830 [facility] Last Admin: 07/11/18 07:50 Dose: 0.4 mg - Objective Vital Signs: Vital Signs Temperature 98.2 F 07/11/18 10:00 Pulse Rate 75 07/11/18 10:00 Respiratory Rate 20 07/11/18 10:00 Blood Pressure 132/74 07/11/18 10:00 O2 Sat by Pulse Oximetry (%) 98 07/10/18 21:00 Constitutional: Yes: Calm Eyes: Yes: Conjunctiva Clear HENT: Yes: Atraumatic Neck: Yes: Supple Cardiovascular: Yes: S1, S2 Respiratory: Yes: CTA Bilaterally Gastrointestinal: Yes: Soft Genitourinary: Yes: WNL Musculoskeletal: Yes: WNL Edema: No Neurological: Yes: Oriented Psychiatric: Yes: Oriented Labs: CBC, BMP 07/10/18 05:30 07/11/18 08:15 Problem List - Problems (1) Hypokalemia Code(s): E87.6 - HYPOKALEMIA (2) Nausea & vomiting Code(s): R11.2 - NAUSEA WITH VOMITING, UNSPECIFIED (3) Pancreatic cancer Code(s): C25.9 - MALIGNANT NEOPLASM OF PANCREAS, UNSPECIFIED Assessment/Plan Current Medications Generic Name Dose Route Start Last Admin Trade Name Freq PRN Reason Stop Dose Admin Amino Acids 30 ml 07/09/18 17:30 07/11/18 07:50 Prosource No Carb Liquid Pkt PO 30 ml BID@0800,1730 [facility] Administration Dronabinol 5 mg 07/10/18 11:45 07/11/18 09:10 Marinol - PO 5 mg DAILY [facility] Administration Enoxaparin Sodium 40 mg 07/08/18 10:00 07/11/18 09:10 Lovenox - SQ 40 mg DAILY [facility] Administration Dextrose/Sodium Chloride 20 meq in 1,000 mls @ 50 mls/hr 07/10/18 14:32 07/10 15:28 Dextrose 5%-Normal Saline+20 Meq Kcl - IV 50 mls/hr ASDIR [facility] Administration Ondansetron HCl 8 mg 07/08/18 08:16 07/09/18 12:01 Zofran - PO 8 mg TID PRN Administration NAUSEA Oxycodone HCl 5 mg 07/10/18 11:40 Roxicodone - PO Q6H PRN PAIN LEVEL 6-10 Pantoprazole Sodium 40 mg 07/08/18 15:00 07/10/18 12:32 Protonix Iv IVPUSH 40 mg DAILY [facility] Administration Potassium Chloride 40 meq 07/11/18 10:00 07/11/18 09:10 K-Dur - PO 40 meq DAILY [facility]ER Administration Tamsulosin HCl 0.4 mg 07/08/18 08:30 07/11/18 07:50 Flomax - PO 0.4 mg DAILY@0830 [facility] Administration Impression 1. dehydration 2. hypokalemia 3. vomiting 4. metastatic pancreatic cancer 5. adrenal adenoma 6. hypotension 7. DM 8. hyponatremia Plan - cont fluids, will increase rate - encourage PO intake - pt tolerating diet - monitor bp - will follow
[2018-07-11] MEDS ORDERED: D5-NS + 20 MEQ KCL - 20 MEQ/1,000 ML INFUS.BAG IV SCH (11:24)
[2018-07-11] MEDS ORDERED: POTASSIUM CHLORIDE 10 MEQ in DEXTROSE 5%-NORMAL SALINE 995 ML IVPB SCH (11:30)
--- NOTE | 2018-07-11 11:48 | CONSULT ---
Admitting History and Physical - Primary Care Physician PCP: Ahmet Evans - Admission History of Present Illness: Pt is a 67 year old male with pmhx of HTN, HLD, DM, and metastatic pancreatic cancer who presents to the ER with light-headedness, nausea and vomiting Pt has improved significantly since admission. He is feeling better, ambulating independently, now on soft diet. Pt reports that he has not vomited since amission.He denies dysphagia and reports that his appetite is improving. Selected Entries 07/10/18 07/10/18 07/10/18 02:00 06:00 16:15 Breakfast 100% Lunch 100% Supper Temperature 98.3 F 98.2 F 98.6 F 07/10/18 07/10/18 07/10/18 18:55 19:51 22:00 Breakfast Lunch Supper 25% Temperature 97.6 F 98.5 F 07/11/18 07/11/18 07/11/18 02:00 06:00 10:00 Breakfast Lunch Supper Temperature 98.2 F 98.3 F 98.2 F Laboratory Tests 07/10/18 05:30 WBC 4.9 History Source: Patient, Family Member Limitations to Obtaining History: No Limitations - Past Medical History Cardiovascular: Yes: HTN, Hyperlipdemia Heme/Onc: Yes: Cancer (Pancreatic) Endocrine: Yes: Diabetes Mellitus (on insulin) - Smoking History Smoking history: Former smoker Have you smoked in the past 12 months: No Aproximately how many cigarettes per day: 0 If you are a former smoker, when did you quit?: 2007 - Alcohol/Substance Use Hx Alcohol Use: Yes (occasional) History of Substance Use: reports: None - Social History ADL: Independent History of Recent Travel: No History - Admission Reason For Visit: VOMITING, HYPOKALEMIA - Diagnostics CT Scan: Report Reviewed - General Mental Status: Alert and Oriented, Awake and Alert, Able to Follow Commands Attention: Intact Ability to Follow Directions: Excellent Head/Neck Control: WFL - Hearing Hearing: Normal Hearing Aide: No With Patient: No Speech Evaluation - Communication Primary Language: BENGALI Communication: Yes: Within Normal Limits Oral Expression Ability: Yes: No Impairment - Speech Production Able to Make Needs Known: Yes: WNL Intelligibility: Yes: WNL - Speech Characteristics Voice Loudness: Normal Voice Pitch: Yes: Normal Voice Phonatory-based Quality: Yes: Normal Speech Pattern: Normal Speech Clarity: < 100% Nasal Resonance: Normal Articulation: Yes: Precise Rate of Speech: Intact - Language/Auditory Comprehension Follows: Yes: Complex Commands - Language/Verbal Expression Able to Respond to Simple Queries: Yes: WNL Able to Communicate Wants and Needs: Yes: WNL Functional Communication Status: Yes: WNL - Memory/Perception manager terminal Memory: Yes: WNL Short Term Memory: Yes: WNL - Swallow Evaluation/Bedside Assessment Current Nutritional Intake: Soft, Thin Liquids Oral Secretions: Yes: WFL Dentition: Yes: Adequate Facial Symmetry at Rest: Symmetrical Facial Symmetry on Retraction: Symmetrical Facial Movement: Controlled Sensation: Normal Against Resistance Opening: Normal Against Resistance Closing: Normal Pucker Lips: Normal Smile: Normal Lingual Movement: Normal, Symmetric Lingual Speed of Movement: Normal Lingual Movement Strgth Against Opposition: Normal Lingual Movement Characteristics: Normal Velopharyngeal Movement: Normal Laryngeal Elevation: WFL Laryngeal Movement: Able to Palpate Rate of Intake: WFL Bolus Size: WFL Labial Seal: WFL Chewing: WFL Oral Prep Time: WFL A-P Transit: WFL Timing of Swallow: WFL Coughing/Throat Clear: No Change in Voice: No Recommendations - Speech Evaluation, Impression/Plan Impression: Swallowing intact. Appetite improving. - Dysphagia Impressions/Plan Swallowing Skills: WFL Dysphagia Impressions: No Impairment *Silent aspiration: cannot be R/O at bedside Dysphagia Treatment Plan: OOB for meals, OOB for 1 h. after meals - Recommendations Medication Administration: Whole with water Liquids: Thin Liquids
[2018-07-11] MEDS ORDERED: ONDANSETRON 8 MG TABLET (FP) PO PRN (12:33)
[2018-07-11] MEDS: POTASSIUM CHLORIDE 10 MEQ in DEXTROSE 5%-NORMAL SALINE 995 ML IVPB SCH (14:36)
[2018-07-11] MEDS ORDERED: ONDANSETRON 4 MG TABLET PO PRN (15:33)
--- NOTE | 2018-07-11 19:02 | PN ---
Progress Note (short form) - Note Progress Note: Patient seen and examined Feels somewhat improved. Still with poor appetite Ambulating in ardon with assistance and PT Last Vital Signs Temp Pulse Resp BP Pulse Ox 97.8 F 98 H 18 140/71 97 07/11/18 18:48 07/11/18 18:48 07/11/18 18:48 07/11/18 18:48 07/11/18 13:57 HEENT: HARSHA, EOM Intact Cor: RSR, No murmurs, No gallops Lungs: Clear to P&A Abd: Soft, Normal bowel sounds, No organomegaly Ext:No significant edema Skin: No rashes, Integument intact CBC, BMP 07/10/18 05:30 07/11/18 08:15 Current Medications Generic Name Dose Route Start Last Admin Trade Name Freq PRN Reason Stop Dose Admin Amino Acids 30 ml 07/11/18 17:30 07/11/18 17:14 Prosource No Carb Liquid Pkt PO 30 ml BID@0800,1730 [facility] Administration Dronabinol 5 mg 07/12/18 10:00 Marinol - PO DAILY [facility]ER Enoxaparin Sodium 40 mg 07/12/18 10:00 Lovenox - SQ DAILY [facility] Potassium Chloride 10 meq/ 1,000 mls @ 75 mls/hr 07/12/18 00:30 07/11/18 14: 36 Dextrose/Sodium Chloride IVPB 75 mls/hr Q13H [facility]ER Administration Ondansetron HCl 8 mg 07/11/18 15:33 Zofran - PO TID PRN NAUSEA Oxycodone HCl 5 mg 07/11/18 12:33 Roxicodone - PO Q6H PRN PAIN LEVEL 6-10 Pantoprazole Sodium 40 mg 07/12/18 10:00 Protonix Iv IVPUSH DAILY [facility] Potassium Chloride 40 meq 07/12/18 10:00 K-Dur - PO DAILY [facility] Tamsulosin HCl 0.4 mg 07/12/18 08:30 Flomax - PO DAILY@0830 [facility] Pancreatic ca -progression on gemzar/ abraxane Cachexia Deciding about alternatives and options.
[2018-07-11] MEDS: oxyCODONE HCL 5 MG TABLET PO PRN (21:31)
[2018-07-12] MEDS: POTASSIUM CHLORIDE 10 MEQ in DEXTROSE 5%-NORMAL SALINE 995 ML IVPB SCH (01:16)
[2018-07-12] MEDS ORDERED: POTASSIUM CHLORIDE 10 MEQ in DEXTROSE 5%-NORMAL SALINE 1,000 ML IVPB SCH (04:30)
[2018-07-12] MEDS: PORTA CATH FLUSH 10 ML IVPUSH PRN (06:10)
[2018-07-12 07:48] LABS: ANION GAP 8 MMOL/L (8-16); BLOOD UREA NITROGEN 6 mg/dL (7-18); CALCIUM 8.6 mg/dL (8.5-10.1); CHLORIDE 100 mmol/L (98-107); CO2 28 mmol/L (21-32); CREATININE 0.4 mg/dL (0.55-1.3); GLUCOSE,RANDOM 93 mg/dL (74-106); POTASSIUM 4.6 mmol/L (3.5-5.1); SODIUM 136 mmol/L (136-145)
--- NOTE | 2018-07-12 10:58 | PN ---
Progress Note, Physician Chief Complaint: ASLEEP EVENTS AND NOTES REVIEWED - Current Medication List Current Medications: Active Medications Amino Acids (Prosource No Carb Liquid Pkt) 30 ml PO BID@0800,1730 [facility] Last Admin: 07/11/18 17:14 Dose: 30 ml Dronabinol (Marinol -) 5 mg PO DAILY [facility] Enoxaparin Sodium (Lovenox -) 40 mg SQ DAILY [facility] IV Flush (Pamella-Cath Flush) 10 ml IVPUSH PRN PRN PRN Reason: protocol, maintain patency Last Admin: 07/12/18 06:10 Dose: 10 ml Potassium Chloride 10 meq/ (Dextrose/Sodium Chloride) 1,005 mls @ 75 mls/hr IVPB Q13H [facility] Last Admin: 07/12/18 05:52 Dose: 75 mls/hr Ondansetron HCl (Zofran -) 8 mg PO TID PRN PRN Reason: NAUSEA Oxycodone HCl (Roxicodone -) 5 mg PO Q6H PRN PRN Reason: PAIN LEVEL 6-10 Last Admin: 07/11/18 21:31 Dose: 5 mg Pantoprazole Sodium (Protonix Iv) 40 mg IVPUSH DAILY [facility] Potassium Chloride (K-Dur -) 40 meq PO DAILY [facility] Tamsulosin HCl (Flomax -) 0.4 mg PO DAILY@0830 [facility] - Objective Vital Signs: Vital Signs Temperature 98.1 F 07/12/18 06:00 Pulse Rate 77 07/12/18 06:00 Respiratory Rate 18 07/12/18 06:00 Blood Pressure 149/83 07/12/18 06:00 O2 Sat by Pulse Oximetry (%) 96 07/11/18 21:00 Constitutional: Yes: Mild Distress Eyes: Yes: WNL HENT: Yes: WNL Neck: Yes: WNL Cardiovascular: Yes: WNL Respiratory: Yes: WNL Gastrointestinal: Yes: Other Genitourinary: Yes: WNL Musculoskeletal: Yes: Muscle Pain, Muscle Weakness Extremities: Yes: WNL Edema: Yes Integumentary: Yes: WNL Wound/Incision: Yes: Clean/Dry Neurological: Yes: Other ...Motor Strength: LLE, RLE Psychiatric: Yes: WNL Labs: CBC, BMP 07/10/18 05:30 07/12/18 06:00 Problem List - Problems (1) Abdominal pain Code(s): R10.9 - UNSPECIFIED ABDOMINAL PAIN (2) Chronic pain Code(s): G89.29 - OTHER CHRONIC PAIN (3) Dehydration Code(s): E86.0 - DEHYDRATION (4) Dysphagia Code(s): R13.10 - DYSPHAGIA, UNSPECIFIED (5) Hypokalemia Code(s): E87.6 - HYPOKALEMIA (6) Nausea & vomiting Code(s): R11.2 - NAUSEA WITH VOMITING, UNSPECIFIED (7) Pancreatic cancer Code(s): C25.9 - MALIGNANT NEOPLASM OF PANCREAS, UNSPECIFIED Assessment/Plan IVF PAIN CONTROL OOB TO CHAIR ONCOLOGY EVAL DIETARY F/U [employer] DIRECTIVES
[2018-07-12] MEDS ORDERED: PT OWN MED DRAWER 7, Y5N ONE ×2 (11:23→16:27)
[2018-07-12] MEDS: ENOXAPARIN NA (PORCINE) 40 MG/0.4 ML DISP.SYRIN SQ SCH (11:25)
[2018-07-12] MEDS: DRONABINOL 5 MG CAPSULE PO SCH (11:26)
[2018-07-12] MEDS: POTASSIUM CHLORIDE TABS 20 MEQ TABLET.ER (FP) PO SCH (11:26)
[2018-07-12] MEDS: TAMSULOSIN HCL 0.4 MG CAP PO SCH (11:26)
[2018-07-12] MEDS: PANTOPRAZOLE SODIUM 40 MG VIAL IVPUSH SCH (11:26)
[2018-07-12] MEDS: AMINO ACIDS/PROTEIN HYDROLYS 30 ML LIQUID.PKT PO SCH ×2 (11:48→16:39)
--- NOTE | 2018-07-12 16:24 | PN ---
Progress Note, Physician History of Present Illness: Pt seen and examined at bedside. He is awake and alert. He feels that his appetite is slowly improving. - Current Medication List Current Medications: Active Medications Amino Acids (Prosource No Carb Liquid Pkt) 30 ml PO BID@0800,1730 [facility] Last Admin: 07/12/18 11:48 Dose: 30 ml Dronabinol (Marinol -) 5 mg PO DAILY [facility] Last Admin: 07/12/18 11:26 Dose: 5 mg Enoxaparin Sodium (Lovenox -) 40 mg SQ DAILY [facility] Last Admin: 07/12/18 11:25 Dose: 40 mg IV Flush (Pamella-Cath Flush) 10 ml IVPUSH PRN PRN PRN Reason: protocol, maintain patency Last Admin: 07/12/18 06:10 Dose: 10 ml Potassium Chloride 10 meq/ (Dextrose/Sodium Chloride) 1,005 mls @ 75 mls/hr IVPB Q13H [facility] Last Admin: 07/12/18 05:52 Dose: 75 mls/hr Ondansetron HCl (Zofran -) 8 mg PO TID PRN PRN Reason: NAUSEA Oxycodone HCl (Roxicodone -) 5 mg PO Q6H PRN PRN Reason: PAIN LEVEL 6-10 Last Admin: 07/11/18 21:31 Dose: 5 mg Pantoprazole Sodium (Protonix Iv) 40 mg IVPUSH DAILY [facility] Last Admin: 07/12/18 11:26 Dose: 40 mg Potassium Chloride (K-Dur -) 40 meq PO DAILY [facility] Last Admin: 07/12/18 11:26 Dose: 40 meq Tamsulosin HCl (Flomax -) 0.4 mg PO DAILY@0830 [facility] Last Admin: 07/12/18 11:26 Dose: 0.4 mg - Objective Vital Signs: Vital Signs Temperature 98.2 F 07/12/18 13:54 Pulse Rate 79 07/12/18 13:54 Respiratory Rate 18 07/12/18 13:54 Blood Pressure 123/73 07/12/18 13:54 O2 Sat by Pulse Oximetry (%) 98 07/12/18 09:00 Constitutional: Yes: Calm Eyes: Yes: Conjunctiva Clear HENT: Yes: Atraumatic Cardiovascular: Yes: S1, S2 Respiratory: Yes: CTA Bilaterally Gastrointestinal: Yes: Soft Genitourinary: Yes: WNL Musculoskeletal: Yes: WNL Edema: No Neurological: Yes: Oriented Psychiatric: Yes: Oriented Labs: CBC, BMP 07/10/18 05:30 07/12/18 06:00 Problem List - Problems (1) Hypokalemia Code(s): E87.6 - HYPOKALEMIA (2) Nausea & vomiting Code(s): R11.2 - NAUSEA WITH VOMITING, UNSPECIFIED (3) Pancreatic cancer Code(s): C25.9 - MALIGNANT NEOPLASM OF PANCREAS, UNSPECIFIED Assessment/Plan Current Medications Generic Name Dose Route Start Last Admin Trade Name Freq PRN Reason Stop Dose Admin Amino Acids 30 ml 07/11/18 17:30 07/12/18 11:48 Prosource No Carb Liquid Pkt PO 30 ml BID@0800,1730 [facility] Administration Dronabinol 5 mg 07/12/18 10:00 07/12/18 11:26 Marinol - PO 5 mg DAILY [facility] Administration Enoxaparin Sodium 40 mg 07/12/18 10:00 07/12/18 11:25 Lovenox - SQ 40 mg DAILY [facility] Administration IV Flush 10 ml 07/12/18 06:06 07/12/18 06:10 Pamella-Cath Flush IVPUSH 10 ml PRN PRN Administration protocol, maintain patency Potassium Chloride 10 meq/ 1,005 mls @ 75 mls/hr 07/12/18 04:30 07/12/18 05: 52 Dextrose/Sodium Chloride IVPB 75 mls/hr Q13H [facility] Administration Ondansetron HCl 8 mg 07/11/18 15:33 Zofran - PO TID PRN NAUSEA Oxycodone HCl 5 mg 07/11/18 12:33 07/11/18 21:31 Roxicodone - PO 5 mg Q6H PRN Administration PAIN LEVEL 6-10 Pantoprazole Sodium 40 mg 07/12/18 10:00 07/12/18 11:26 Protonix Iv IVPUSH 40 mg DAILY [facility] Administration Potassium Chloride 40 meq 07/12/18 10:00 07/12/18 11:26 K-Dur - PO 40 meq DAILY [facility] Administration Tamsulosin HCl 0.4 mg 07/12/18 08:30 07/12/18 11:26 Flomax - PO 0.4 mg DAILY@0830 [facility] Administration Impression 1. dehydration 2. hypokalemia 3. vomiting 4. metastatic pancreatic cancer 5. adrenal adenoma 6. hypotension 7. DM 8. hyponatremia Plan - will change fluids to ns and decrease rate - repeat labs in am - encourage PO intake - pt tolerating diet - monitor bp - will follow
[2018-07-12] MEDS ORDERED: SODIUM CHLORIDE 1,000 ML IV SCH (16:30)
[2018-07-13] MEDS: oxyCODONE HCL 5 MG TABLET PO PRN ×2 (02:39→18:32)
[2018-07-13] MEDS: PORTA CATH FLUSH 10 ML IVPUSH PRN (06:42)
[2018-07-13 07:48] LABS: ALBUMIN 2.5 g/dl (3.4-5.0); ALK PHOS 152 U/L (45-117); ANION GAP 7 MMOL/L (8-16); BILIRUBIN,TOTAL 0.6 mg/dL (0.2-1); BLOOD UREA NITROGEN 7 mg/dL (7-18); CALCIUM 8.2 mg/dL (8.5-10.1); CHLORIDE 100 mmol/L (98-107); CO2 28 mmol/L (21-32); CREATININE 0.4 mg/dL (0.55-1.3); GLUCOSE,RANDOM 88 mg/dL (74-106); MAGNESIUM 1.6 mg/dL (1.8-2.4); POTASSIUM 4.3 mmol/L (3.5-5.1); SGOT/AST 33 U/L (15-37); SGPT/ALT 28 U/L (13-61); SODIUM 135 mmol/L (136-145); TOT PROT 6.5 g/dl (6.4-8.2)
[2018-07-13] MEDS: POTASSIUM CHLORIDE TABS 20 MEQ TABLET.ER (FP) PO SCH (09:00)
[2018-07-13] MEDS: TAMSULOSIN HCL 0.4 MG CAP PO SCH (09:00)
[2018-07-13] MEDS: AMINO ACIDS/PROTEIN HYDROLYS 30 ML LIQUID.PKT PO SCH ×2 (09:00→16:59)
[2018-07-13] MEDS: DRONABINOL 5 MG CAPSULE PO SCH (09:01)
[2018-07-13] MEDS: PANTOPRAZOLE SODIUM 40 MG VIAL IVPUSH SCH (09:01)
[2018-07-13] MEDS: ENOXAPARIN NA (PORCINE) 40 MG/0.4 ML DISP.SYRIN SQ SCH (09:02)
--- NOTE | 2018-07-13 09:43 | PN ---
Progress Note, Physician - Current Medication List Current Medications: Active Medications Amino Acids (Prosource No Carb Liquid Pkt) 30 ml PO BID@0800,1730 [facility] Last Admin: 07/13/18 09:00 Dose: 30 ml Dronabinol (Marinol -) 5 mg PO DAILY [facility] Last Admin: 07/13/18 09:01 Dose: 5 mg Enoxaparin Sodium (Lovenox -) 40 mg SQ DAILY [facility] Last Admin: 07/13/18 09:02 Dose: 40 mg IV Flush (Pamella-Cath Flush) 10 ml IVPUSH PRN PRN PRN Reason: protocol, maintain patency Last Admin: 07/13/18 06:42 Dose: 10 ml Sodium Chloride (Normal Saline -) 1,000 mls @ 50 mls/hr IV ASDIR [facility] Stop: 07/13/18 16:24 Last Admin: 07/12/18 16:40 Dose: 50 mls/hr Ondansetron HCl (Zofran -) 8 mg PO TID PRN PRN Reason: NAUSEA Oxycodone HCl (Roxicodone -) 5 mg PO Q6H PRN PRN Reason: PAIN LEVEL 6-10 Last Admin: 07/13/18 02:39 Dose: 5 mg Pantoprazole Sodium (Protonix Iv) 40 mg IVPUSH DAILY [facility] Last Admin: 07/13/18 09:01 Dose: 40 mg Potassium Chloride (K-Dur -) 40 meq PO DAILY [facility] Last Admin: 07/13/18 09:00 Dose: 40 meq Tamsulosin HCl (Flomax -) 0.4 mg PO DAILY@0830 [facility] Last Admin: 07/13/18 09:00 Dose: 0.4 mg - Objective Vital Signs: Vital Signs Temperature 98.5 F 07/13/18 08:59 Pulse Rate 86 07/13/18 08:59 Respiratory Rate 18 07/13/18 08:59 Blood Pressure 130/85 07/13/18 08:59 O2 Sat by Pulse Oximetry (%) 98 07/12/18 21:00 Constitutional: Yes: Calm Cardiovascular: Yes: Regular Rate and Rhythm, S1, S2, Other (pamella cath) Respiratory: Yes: CTA Bilaterally Gastrointestinal: Yes: Normal Bowel Sounds, Soft Edema: No Neurological: Yes: Alert, Oriented Labs: CBC, BMP 07/10/18 05:30 07/13/18 06:00 Problem List - Problems (1) Pancreatic cancer Assessment/Plan: patient is stil deciding on treatment options heme on board dvt ppx Code(s): C25.9 - MALIGNANT NEOPLASM OF PANCREAS, UNSPECIFIED (2) Dysphagia Assessment/Plan: chris moura saw patient on marinol and prosource Code(s): R13.10 - DYSPHAGIA, UNSPECIFIED (3) Hypokalemia Assessment/Plan: improved magnesium is low repleted it today recheck in AM Code(s): E87.6 - HYPOKALEMIA (4) Nausea & vomiting Assessment/Plan: zofran Code(s): R11.2 - NAUSEA WITH VOMITING, UNSPECIFIED (5) Hyponatremia Assessment/Plan: on NS - IVF now renal on board sodium is improving Code(s): E87.1 - HYPO-OSMOLALITY AND HYPONATREMIA
[2018-07-13] MEDS ORDERED: MAGNESIUM OXIDE 400 MG TABLET (FP) PO ONE (10:06)
[2018-07-13] MEDS ORDERED: MAGNESIUM SULF 50% (8.12 MEQ/2 ML-1 GM VIAL) IVPB ONE (12:08)
--- NOTE | 2018-07-13 13:36 | PN ---
Progress Note (short form) - Note Progress Note: Patient seen and examined Had several bouts of nausea and emesis Some abdominal pain remains somewhat anorechtic Some back pains Last Vital Signs Temp Pulse Resp BP Pulse Ox 98.5 F 86 18 130/85 98 07/13/18 08:59 07/13/18 08:59 07/13/18 08:59 07/13/18 08:59 07/13/18 09:00 HEENT: HARSHA, EOM Intact Oropharynx: No thrush, No mucositis Cor: RSR, No murmurs, No gallops Lungs: Clear to P&A Abd: Soft, Normal bowel sounds, No organomegaly, midline scar with mass Ext:No significant edema Skin: No rashes, Integument intact CBC, BMP 07/10/18 05:30 07/13/18 06:00 Current Medications Generic Name Dose Route Start Last Admin Trade Name Freq PRN Reason Stop Dose Admin Amino Acids 30 ml 07/11/18 17:30 07/13/18 09:00 Prosource No Carb Liquid Pkt PO 30 ml BID@0800,1730 [facility] Administration Dronabinol 5 mg 07/12/18 10:00 07/13/18 09:01 Marinol - PO 5 mg DAILY [facility] Administration Enoxaparin Sodium 40 mg 07/12/18 10:00 07/13/18 09:02 Lovenox - SQ 40 mg DAILY [facility] Administration IV Flush 10 ml 07/12/18 06:06 07/13/18 06:42 Pamella-Cath Flush IVPUSH 10 ml PRN PRN Administration protocol, maintain patency Sodium Chloride 1,000 mls @ 50 mls/hr 07/12/18 16:30 07/12/18 16:40 Normal Saline - IV 07/13/18 16:24 50 mls/hr ASDIR [facility] Administration Ondansetron HCl 8 mg 07/11/18 15:33 Zofran - PO TID PRN NAUSEA Oxycodone HCl 5 mg 07/11/18 12:33 07/13/18 02:39 Roxicodone - PO 5 mg Q6H PRN Administration PAIN LEVEL 6-10 Pantoprazole Sodium 40 mg 07/12/18 10:00 07/13/18 09:01 Protonix Iv IVPUSH 40 mg DAILY [facility] Administration Potassium Chloride 40 meq 07/12/18 10:00 07/13/18 09:00 K-Dur - PO 40 meq DAILY [facility] Administration Tamsulosin HCl 0.4 mg 07/12/18 08:30 07/13/18 09:00 Flomax - PO 0.4 mg DAILY@0830 [facility] Administration Impression: Impression: Metastatic pancreatic ca Failure to thrive Discussed with patient about resumption of alternative chemotherapy States he would like to be stronger and gain weight before considering chemotherapy.
--- NOTE | 2018-07-13 15:28 | PN ---
Progress Note, Physician History of Present Illness: Pt seen and examined at bedside. He is awake and alert. He feels appetite is improving. He still feels weak. - Current Medication List Current Medications: Active Medications Amino Acids (Prosource No Carb Liquid Pkt) 30 ml PO BID@0800,1730 [facility] Last Admin: 07/13/18 09:00 Dose: 30 ml Dronabinol (Marinol -) 5 mg PO DAILY [facility] Last Admin: 07/13/18 09:01 Dose: 5 mg Enoxaparin Sodium (Lovenox -) 40 mg SQ DAILY [facility] Last Admin: 07/13/18 09:02 Dose: 40 mg IV Flush (Pamella-Cath Flush) 10 ml IVPUSH PRN PRN PRN Reason: protocol, maintain patency Last Admin: 07/13/18 06:42 Dose: 10 ml Sodium Chloride (Normal Saline -) 1,000 mls @ 50 mls/hr IV ASDIR [facility] Stop: 07/13/18 16:24 Last Admin: 07/12/18 16:40 Dose: 50 mls/hr Ondansetron HCl (Zofran -) 8 mg PO TID PRN PRN Reason: NAUSEA Oxycodone HCl (Roxicodone -) 5 mg PO Q6H PRN PRN Reason: PAIN LEVEL 6-10 Last Admin: 07/13/18 02:39 Dose: 5 mg Pantoprazole Sodium (Protonix Iv) 40 mg IVPUSH DAILY [facility] Last Admin: 07/13/18 09:01 Dose: 40 mg Potassium Chloride (K-Dur -) 40 meq PO DAILY [facility] Last Admin: 07/13/18 09:00 Dose: 40 meq Tamsulosin HCl (Flomax -) 0.4 mg PO DAILY@0830 [facility] Last Admin: 07/13/18 09:00 Dose: 0.4 mg - Objective Vital Signs: Vital Signs Temperature 98.1 F 07/13/18 13:39 Pulse Rate 81 07/13/18 13:39 Respiratory Rate 20 07/13/18 13:39 Blood Pressure 141/94 07/13/18 13:39 O2 Sat by Pulse Oximetry (%) 98 07/13/18 09:00 Constitutional: Yes: Calm Eyes: Yes: Conjunctiva Clear HENT: Yes: Atraumatic Cardiovascular: Yes: S1, S2 Respiratory: Yes: CTA Bilaterally Gastrointestinal: Yes: Soft Genitourinary: Yes: WNL Musculoskeletal: Yes: WNL Edema: No Neurological: Yes: Oriented Psychiatric: Yes: Oriented Labs: CBC, BMP 07/10/18 05:30 07/13/18 06:00 Problem List - Problems (1) Hypokalemia Code(s): E87.6 - HYPOKALEMIA (2) Nausea & vomiting Code(s): R11.2 - NAUSEA WITH VOMITING, UNSPECIFIED (3) Pancreatic cancer Code(s): C25.9 - MALIGNANT NEOPLASM OF PANCREAS, UNSPECIFIED Assessment/Plan Current Medications Generic Name Dose Route Start Last Admin Trade Name Freq PRN Reason Stop Dose Admin Amino Acids 30 ml 07/11/18 17:30 07/13/18 09:00 Prosource No Carb Liquid Pkt PO 30 ml BID@0800,1730 [facility] Administration Dronabinol 5 mg 07/12/18 10:00 07/13/18 09:01 Marinol - PO 5 mg DAILY [facility] Administration Enoxaparin Sodium 40 mg 07/12/18 10:00 07/13/18 09:02 Lovenox - SQ 40 mg DAILY [facility] Administration IV Flush 10 ml 07/12/18 06:06 07/13/18 06:42 Pamella-Cath Flush IVPUSH 10 ml PRN PRN Administration protocol, maintain patency Sodium Chloride 1,000 mls @ 50 mls/hr 07/12/18 16:30 07/12/18 16:40 Normal Saline - IV 07/13/18 16:24 50 mls/hr ASDIR [facility] Administration Ondansetron HCl 8 mg 07/11/18 15:33 Zofran - PO TID PRN NAUSEA Oxycodone HCl 5 mg 07/11/18 12:33 07/13/18 02:39 Roxicodone - PO 5 mg Q6H PRN Administration PAIN LEVEL 6-10 Pantoprazole Sodium 40 mg 07/12/18 10:00 07/13/18 09:01 Protonix Iv IVPUSH 40 mg DAILY [facility] Administration Potassium Chloride 40 meq 07/12/18 10:00 07/13/18 09:00 K-Dur - PO 40 meq DAILY [facility] Administration Tamsulosin HCl 0.4 mg 07/12/18 08:30 07/13/18 09:00 Flomax - PO 0.4 mg DAILY@0830 [facility] Administration Impression 1. dehydration 2. hypokalemia 3. vomiting 4. metastatic pancreatic cancer 5. adrenal adenoma 6. hypotension 7. DM 8. hyponatremia Plan - replace mag - cont fluids - monitor lytes - encourage PO intake - cont supplements, he does not always drink the shakes - pt tolerating diet - monitor bp - will follow
[2018-07-13] MEDS ORDERED: SODIUM CHLORIDE 1,000 ML IV SCH (15:29)
[2018-07-14] MEDS: oxyCODONE HCL 5 MG TABLET PO PRN (00:56)
[2018-07-14 08:50] LABS: ALBUMIN 2.4 g/dl (3.4-5.0); ALK PHOS 148 U/L (45-117); ANION GAP 10 MMOL/L (8-16); BILIRUBIN,TOTAL 0.6 mg/dL (0.2-1); BLOOD UREA NITROGEN 7 mg/dL (7-18); CALCIUM 8.1 mg/dL (8.5-10.1); CHLORIDE 99 mmol/L (98-107); CO2 26 mmol/L (21-32); CREATININE 0.4 mg/dL (0.55-1.3); GLUCOSE,RANDOM 77 mg/dL (74-106); MAGNESIUM 1.9 mg/dL (1.8-2.4); POTASSIUM 4.2 mmol/L (3.5-5.1); SGOT/AST 26 U/L (15-37); SGPT/ALT 25 U/L (13-61); SODIUM 135 mmol/L (136-145); TOT PROT 6.3 g/dl (6.4-8.2)
[2018-07-14] MEDS: ENOXAPARIN NA (PORCINE) 40 MG/0.4 ML DISP.SYRIN SQ SCH (09:35)
[2018-07-14] MEDS: TAMSULOSIN HCL 0.4 MG CAP PO SCH (09:35)
[2018-07-14] MEDS: DRONABINOL 5 MG CAPSULE PO SCH (09:35)
[2018-07-14] MEDS: AMINO ACIDS/PROTEIN HYDROLYS 30 ML LIQUID.PKT PO SCH (09:35)
[2018-07-14] MEDS: PANTOPRAZOLE SODIUM 40 MG VIAL IVPUSH SCH (09:35)
[2018-07-14] MEDS ORDERED: MAGNESIUM OXIDE 400 MG TABLET (FP) PO SCH (10:00)
--- NOTE | 2018-07-14 10:28 | DS ---
Physical Examination Vital Signs: Vital Signs Temperature 98.5 F 07/14/18 06:00 Pulse Rate 84 07/14/18 06:00 Respiratory Rate 18 07/14/18 06:00 Blood Pressure 149/89 07/14/18 06:00 O2 Sat by Pulse Oximetry (%) 96 07/13/18 21:00 Findings/Remarks: 67 y/o M with PMHx of Metastatic Pancreatic Cancer, HTN, HLD, DM (diet controlled), COPD, Chronic constipation, presents after feeling dizziness. Patient says he woke up at his baseline and later in the morning, while standing up from a supine position, he began to feel dizzy and lightheaded. At this time he took his BP which was 70/50 and his blood sugar which was low ( patient and his at bedside could not pinpoint the exact measurement). At this time his daughter instructed the patient and his to visit the ED. Patient has felt dizzy in the past and mentions having gotten lightheaded to the point where hes lost consciousness many years ago. The patient visited the hospital after his most recent episode of dizziness and was diagnosed with Pancreatic Ca with transfer to [facility]. Patient says he has not been worked up for this dizziness in the past. Denies any accompanying Palpitations, Chest pain or SOB. Patient has had decreased PO intake since his cancer tx (Surgical resection, Chemo) and has only been able to tolerate Ensure Shakes and not solid food. He has had multiple episodes of NBNB vomiting since his cancer tx, and has not had any increase in the amount of vomit or number of episodes. Denies any sick contacts , Tick Bites, Recent medication changes. Constitutional: Yes: No Distress, Calm, Thin Cardiovascular: Yes: Regular Rate and Rhythm Respiratory: Yes: Regular Gastrointestinal: Yes: Normal Bowel Sounds, Soft Musculoskeletal: Yes: WNL Extremities: Yes: WNL Edema: No Peripheral Pulses WNL: Yes Neurological: Yes: Alert, Oriented Psychiatric: Yes: Alert, Oriented Labs: CBC, BMP 07/10/18 05:30 07/14/18 06:50 Discharge Summary Reason For Visit: VOMITING, HYPOKALEMIA Current Active Problems Abdominal pain (Acute) Chronic pain (Acute) Dehydration (Acute) Dysphagia (Acute) Hypokalemia (Acute) Nausea & vomiting (Acute) Pancreatic cancer (Acute) Pancreatic cancer (Acute) Vomiting (Acute) Hospital Course: Laboratory Last Values WBC 4.9 K/mm3 (4.0-10.0) 07/10/18 05:30 RBC 4.44 M/mm3 (4.00-5.60) 07/10/18 05:30 Hgb 13.5 GM/dL (11.7-16.9) 07/10/18 05:30 Hct 38.3 % (35.4-49) 07/10/18 05:30 MCV 86.3 fl (80-96) 07/10/18 05:30 MCH 30.4 pg (25.7-33.7) 07/10/18 05:30 MCHC 35.3 g/dl (32.0-35.9) 07/10/18 05:30 RDW 14.7 % (11.9-15.9) 07/10/18 05:30 Plt Count 335 K/MM3 (134-434) 07/10/18 05:30 MPV 6.6 fl (7.5-11.1) L 07/10/18 05:30 Absolute Neuts (auto) 3.1 K/mm3 (1.5-8.0) 07/10/18 05:30 Neutrophils % 63.7 % (42.8-82.8) 07/10/18 05:30 Lymphocytes % 27.5 % (8-40) D 07/10/18 05:30 Monocytes % 6.8 % (3.8-10.2) 07/10/18 05:30 Eosinophils % 1.4 % (0-4.5) 07/10/18 05:30 Basophils % 0.6 % (0-2.0) 07/10/18 05:30 Nucleated RBC % 0 % (0-0) 07/10/18 05:30 Sodium 135 mmol/L (136-145) L 07/14/18 06:50 Potassium 4.2 mmol/L (3.5-5.1) 07/14/18 06:50 Chloride 99 mmol/L (98-107) 07/14/18 06:50 Carbon Dioxide 26 mmol/L (21-32) 07/14/18 06:50 Anion Gap 10 MMOL/L (8-16) 07/14/18 06:50 BUN 7 mg/dL (7-18) 07/14/18 06:50 Creatinine 0.4 mg/dL (0.55-1.3) L 07/14/18 06:50 Creat Clearance w eGFR > 60 (>60) 07/14/18 06:50 POC Glucometer 92 UNITS (80-120) 07/13/18 17:07 Random Glucose 77 mg/dL (74-106) 07/14/18 06:50 Hemoglobin A1c % 6.5 % (4.2-6.3) H 07/09/18 13:00 Calcium 8.1 mg/dL (8.5-10.1) L 07/14/18 06:50 Phosphorus 2.9 mg/dL (2.5-4.9) 07/11/18 08:15 Magnesium 1.9 mg/dL (1.8-2.4) 07/14/18 06:50 Total Bilirubin 0.6 mg/dL (0.2-1) 07/14/18 06:50 AST 26 U/L (15-37) 07/14/18 06:50 ALT 25 U/L (13-61) 07/14/18 06:50 Alkaline Phosphatase 148 U/L (45-117) H 07/14/18 06:50 Ammonia 35.47 umol/L (11-32) H 07/07/18 18:00 Total Protein 6.3 g/dl (6.4-8.2) L 07/14/18 06:50 Albumin 2.4 g/dl (3.4-5.0) L 07/14/18 06:50 Lipase 34 U/L (73-393) L 07/07/18 19:00 Vitamin B12 1617 pg/ml (193-986) H 07/09/18 13:00 TSH 0.89 uIU/ml (0.358-3.74) D 07/09/18 13:00 Free T4 1.40 ng/dl (0.76-1.16) H 07/09/18 13:00 Urine Color Ltyellow 07/07/18 22:45 Urine Appearance Clear 07/07/18 22:45 Urine pH 9.0 (5.0-8.0) H 07/07/18 22:45 Ur Specific [place] 1.044 (1.010-1.035) H 07/07/18 22:45 Urine Protein Negative (NEGATIVE) 07/07/18 22:45 Urine Glucose (UA) Negative (NEGATIVE) 07/07/18 22:45 Urine Ketones Negative (NEGATIVE) 07/07/18 22:45 Urine Blood 2+ (NEGATIVE) H 07/07/18 22:45 Urine Nitrite Negative (NEGATIVE) 07/07/18 22:45 Urine Bilirubin Negative (<2.0 mg/dL) 07/07/18 22:45 Urine Urobilinogen 4.0 e.u/dl mg/dL (0.2-1.0) 07/07/18 22:45 Ur Leukocyte Esterase Trace (NEGATIVE) 07/07/18 22:45 Urine WBC (Auto) 3 /hpf (3-5) 07/07/18 22:45 Urine RBC (Auto) <1 /hpf (0-3) 07/07/18 22:45 Microbiology 07/11/18 18:20 Blood - Pamella Cath Blood Culture - Preliminary NO GROWTH OBTAINED AFTER 48 HOURS, INCUBATION TO CONTINUE FOR 3 DAYS. 07/11/18 12:15 Blood - Pamella Cath Blood Culture - Preliminary NO GROWTH OBTAINED AFTER 24 HOURS, INCUBATION TO CONTINUE FOR 4 DAYS. 07/09/18 23:04 Urine - Urine Clean Catch Urine Culture - Final Condition: Stable - Instructions Diet, Activity, Other Instructions: Follow up with Dr Sabina Balderrama on Monday07/16/18- call her office on Monday to see her Monday Take potassium chloride 20 meq, 1 tab daily Take magnesium 400 mg, 1 tab daily Take multivitamin 1 tab daily Take Dronabinol (Marinol) 5 mg 2 x day Take Reglan 5 mg 1 tab 3 x day before meals Referrals: Jose Diaz MD, MD [Primary Care Provider] - Sabina Markham MD [Staff Physician] - Disposition: HOME - Home Medications Comprehensive Discharge Medication List: Ambulatory Orders Tamsulosin HCl [Flomax -] 0.4 mg PO DAILY 07/07/18 Dronabinol [Marinol -] 5 mg PO BID #60 capsule MDD 2 07/14/18 Magnesium Oxide [Mag-Ox -] 400 mg PO DAILY #30 tablet 07/14/18 Metoclopramide HCl [Reglan] 5 mg PO AC #90 tablet 07/14/18 Multivitamin [Daily Multiple Vitamin] 1 each PO DAILY #30 tablet 07/14/18 Pantoprazole Sodium [Protonix -] 40 mg PO DAILY #30 tablet.ec 07/14/18 Potassium Chloride [K-Dur -] 20 meq PO DAILY 30 Days #30 tablet.er 07/14/18 oxyCODONE HCL [Roxicodone -] 5 mg PO Q6H PRN #20 tablet MDD 4 07/14/18
[2018-07-14 11:11] VITALS: BP 124/67; PULSE 95; TEMP 98.2
[2018-07-14] MEDS: POTASSIUM CHLORIDE TABS 20 MEQ TABLET.ER (FP) PO SCH (12:17)
== END 2018-07-14 14:14 | disposition home or self-care (01) | DRG 436 ==
LOC: JER 16:57 → JERBED 23:45 → J4W 07-08 23:59 → OBSVTOIN 07-11 11:03 → J7W 07-11 13:44
PROVIDERS: ADMIT Internal Medicine; ATTEND Family Medicine
DX: C25.9 Malignant neoplasm of pancreas, unspecified (principal); E46 Unspecified protein-calorie malnutrition; R64 Cachexia; Z68.1 Body mass index [BMI] 19.9 or less, adult; E87.1 Hypo-osmolality and hyponatremia; N17.9 Acute kidney failure, unspecified; R18.8 Other ascites; I10 Essential (primary) hypertension; E78.5 Hyperlipidemia, unspecified; E11.9 Type 2 diabetes mellitus without complications; K59.00 Constipation, unspecified; R11.10 Vomiting, unspecified; J44.9 Chronic obstructive pulmonary disease, unspecified; E86.0 Dehydration; G89.29 Other chronic pain; R10.9 Unspecified abdominal pain; E87.6 Hypokalemia; D35.00 Benign neoplasm of unspecified adrenal gland; R13.10 Dysphagia, unspecified; Z87.891 Personal history of nicotine dependence
CPT/HCPCS: 36415; 74177-TC; 80048; 80053; 81003; 81015; 82140; 82607; 82962; 83036; 83690; 83735; 84100; 84439; 84443; 85025; 87040; 87086; 93005; 93010; 93306-TC; 93880-TC; 97116-GP; 97161-GP; 99284-25; G0378; J7030